=== PATIENT | male | born 1940 | race Caucasian/White ===

== ENCOUNTER 2020-01-07 21:49 | Inpatient (IN) | payer MEDICARE, BC, SELFPAY ==
--- NOTE | ~2020-01-07 | XR_ITS ---
EXAMINATION: XR fl guide central line place DATE: 01/11/2020 10:04 INDICATION: Central line placement. TECHNIQUE: 2 intraoperative fluoroscopic views of the chest were obtained. I was not present. Fluoros copy exposure time was 65 seconds. COMPARISON: Chest 2 views 01/07/2020 FINDINGS: There is a right internal jugular central venous catheter with tip overlying superior cavoa trial junction. IMPRESSION: 1. Central line tip overlying superior cavoatrial junction. Reviewed, dictated and finalized at location A.
--- NOTE | ~2020-01-07 | XR_ITS ---
EXAMINATION: XR chest port-a-cath/central DATE: 01/11/2020 10:24 INDICATION: Central line placement. TECHNIQUE: A single frontal view of the chest was obtained. COMPARISON: Chest 2 views 01/07/2020 FINDINGS: The patient is rotated to his right. There is mild scarring at the lung apices. No pleural effusion or pneumothorax. The heart size is normal. A right internal jugular central venous catheter is seen with tip at the superior cavoatrial junction. Calcified mediastinal lymph nodes are consisten t with old granulomatous disease. IMPRESSION: 1. Central line tip at superior cavoatrial junction. Reviewed, dictated and finalized at location A.
--- NOTE | ~2020-01-07 | XR_ITS ---
XR chest 2V 01/07/2020 22:37 Indication: Left-sided chest pain Procedure: 2 view chest Comparison: Comparison to multiple prior studies sequentially, with oldest reviewed study dated 08/01. Findings: Heart size normal. There is chronic apical pleural thickening/scarring. No focal air space disease, pulmonary edema, pleural effusion or suspected pneumothorax. The lungs are hyperinflated whi ch is consistent with, but not diagnostic of chronic obstructive pulmonary disease. Impression: 1: No acute cardiopulmonary disease. Reviewed, dictated and finalized at location A. Impression: 1: No acute cardiopulmonary disease.
[2020-01-07 21:55] VITALS: BP 151/72; PULSE 91; RESP 20; TEMP 37.1; O2SAT 100
[2020-01-07 22:16] VITALS: PULSE 85
--- NOTE | 2020-01-07 22:20 | ECG_ITS ---
Measurements Intervals [place] Rate: 86 P: 35 MN: 112 QRS: -44 QRSD: 86 T: 62 QT: 343 QTc: 412 Interpretive Statements SINUS RHYTHM WITH SHORT MN INTERVAL VENTRICULAR PREMATURE COMPLEX LEFT AXIS DEVIATION MINIMAL Q WAVES- LATERAL LEADS BASELINE ARTIFACT- V6 BORDERLINE ECG Electronically Signed On 01-08-2020 7:12:01 CDT by Jose Ramon Lao D.O.
--- NOTE | 2020-01-07 22:22 | ED.CHESTPAIN ---
HPI - Chest Pain General Chief Complaint: Chest Pain Stated Complaint: chest pain, chest congestion Time Seen by Provider: 01/07/20 22:05 History of Present Illness HPI narrative: Patient is a 79-year-old male who presents ER with chief complaint of chest pain. Ongoing for last couple of days and has been intermittent in nature. Worse in the evenings. Is associate with lower extremity edema that is worsened over the last week. He was prescribed Lasix a few days ago by his privacy officer to help with diuresis. He has CKD stage IV. No history of coronary disease. No overt orthopnea. Mild dyspnea. Has history of multiple myeloma and sees Dr. Nicolas. Last chemotherapy 2 weeks ago. Related Data Home Medications Medication Instructions Recorded Confirmed daratumumab [Darzalex] 20 mg IV MONTHLY 01/07/20 01/08/20 lisinopril 2.5 mg PO DAILY 01/07/20 01/08/20 pomalidomide [Pomalyst] 4 mg PO DAILY 01/07/20 01/08/20 tamsulosin 0.4 mg PO DAILY 01/07/20 01/08/20 valacyclovir 500 mg PO DAILY 01/07/20 01/08/20 dexamethasone 4 mg PO DAILY 01/08/20 01/08/20 diphenoxylate-atropine 1 tablet PO TID PRN 01/08/20 01/08/20 lorazepam 1 mg PO TID PRN 01/08/20 01/08/20 polyethylene glycol 3350 17 g PO DAILY PRN 01/08/20 01/08/20 Allergies Allergy/AdvReac Type Severity Reaction Status Date / Time codeine AdvReac Confusion Verified 01/07/20 22:04 Review of Systems Review of Systems: All systems reviewed & are unremarkable except as noted in HPI and below Constitutional: Constitutional: Denies chills, Denies fever(s) and Reports weakness ENT: Denies nasal congestion and Denies sore throat Cardiovascular: Cardiovascular: Reports chest pain and Denies radiating jaw, neck or arm pain Comments: Lower extremity edema Respiratory: Respiratory: Denies cough, Reports dyspnea and Denies wheezing Gastrointestinal: Gastrointestinal: Denies abdominal pain, Denies nausea and Denies vomiting PMFSH Past Medical History Medical History CKD (chronic kidney disease), stage IV Multiple myeloma Surgical History Surgical History H/O shoulder replacement Family History Family History Mother Diabetes mellitus Father Lung cancer Social History Social History Smoking status: Never smoker Second hand tobacco smoke exposure: No Alcohol intake: never Substance use: never Substance use type: does not use Gender identity (if verbalized by the patient): Male Spiritual care concerns: No Agree to blood products: Yes Exam Narrative: Exam Narrative: GENERAL: Well-appearing, well-nourished, and in no acute distress. HEAD: Normocephalic, atraumatic. ENT: Mucous membranes moist. CHEST: Clear to auscultation. No respiratory distress. HEART: Regular rate and rhythm. Normal peripheral pulses. ABDOMEN: Soft, nontender, nondistended. EXTREMITIES: Normal range of motion. 3+ edema. SKIN: Warm, dry, no rash. NEURO: Alert and oriented x3. PSYCH: Normal mood and affect. Course Course Emergency Course: Patient informed of results. Cardiology consulted. No heparin at this time per their recommendation. Will trend troponins. Will have patient's privacy officer consulted a later point. Vital Signs Vital signs: Vital Signs Temperature 98.8 F 01/07/20 21:55 Pulse Rate 91 01/07/20 21:55 Respiratory Rate 20 01/07/20 21:55 Blood Pressure 151/72 H 01/07/20 21:55 Pulse Oximetry 100 01/07/20 21:55 Temperature 98 F 01/08/20 04:00 Pulse Rate 58 L 01/08/20 06:00 Respiratory Rate 18 01/08/20 04:00 Blood Pressure 136/52 L 01/08/20 04:00 Pulse Oximetry 98 01/08/20 04:00 MDM - Chest Pain Lab Data Result diagrams: 01/07/20 22:24 01/07/20 22:24 Labs: Lab Results 01/07/2001/06
[2020-01-07 22:32] LABS: Basophils Percent Auto 1.3 % (0.2-1.2); Eosinophils Absolute Auto 0.6 K/mm3 (0-0.3); Hematocrit 28.8 % (42.0-52.0); Hemoglobin 9.2 g/dL (14.0-18.0); Immature Granulocyte Absolute 0.03 K/mm3 (0.00-0.031); Immature Granulocyte Percent A 1.3 % (0-0.5); Lymphocytes Absolute Auto 0.71 K/mm3 (0.9-3.2); Lymphocytes Percent Auto 30.7 % (18.3-44.2); Mean Corpuscular HGB Conc 31.9 g/dl (32-36); Mean Corpuscular Hemoglobin 31.8 pg (26-34); Mean Corpuscular Volume 99.7 fl (80-100); Mean Platelet Volume 12.2 fl (7.4-10.4); Monocytes Absolute Auto 0.2 K/mm3 (0.1-0.6); Neutrophils Absolute Auto 0.7 K/mm3 (1.3-6.7); Neutrophils Percent Auto 30.7 % (45.5-73.1); Platelet Count Result 177 k/mm3 (150-375); Red Blood Count 2.89 M/mm3 (4.6-6.20); Red Cell Distribution Width 14.7 % (11.5-14.5); White Blood Count 2.3 K/mm3 (4.5-10.0)
[2020-01-07 22:44] LABS: Alanine Aminotransferase 8 U/L (4-50); Albumin Level 3.2 g/dL (3.5-5.1); Alkaline Phosphatase 48 U/L (38-126); Aspartate Amino Transferase 11 U/L (17-59); Bilirubin,Total 0.3 mg/dL (0.2-1.3); Blood Urea Nitrogen 73 mg/dL (9-20); Calcium 8.2 mg/dL (8.4-10.2); Carbon Dioxide 16 mmol/L (22-30); Chloride 109 mmol/L (98-107); Estimated CRCL calculation 8 ml/min; Estimated Glomerular Filt Rate 7; Glucose 119 mg/dL (75-110); Potassium 5.1 mmol/L (3.4-5.0); Sodium 135 mmol/L (137-145)
[2020-01-07 23:20] LABS: NT Pro B Type Natriuretic Pept 5450 PG/ML (5-100); Troponin I 0.103 ng/mL (0.000-0.034)
[2020-01-08] VITALS (16 sets, daily range): BP systolic 129–163; BP diastolic 44–73; PULSE 53–88; RESP 16–21; TEMP 36–37; O2SAT 90–100; BMI 22.9
--- NOTE | 2020-01-08 | ECHO_ITS ---
Patient Info Name: Jackson Boyer Age: 79 years : 1940 Gender: Male Ht: 72 in Wt: 169 lbs BSA: 1.97 m2 HR: 78 bpm BP: 163 / 69 mmHg Technical Quality: Good Exam Date: 01/08/2020 10:51 AM Exam Location: [facility] Pulmonary Patient Status: Inpatient Admit Date: 01/08/2020 Staff Ordering Physician: Germain Avalos MD Social Worker Health Services: Felicitas Braun RDCS Attending Provider: Demetrius Neil MD Referring Physician: Bailey MCGREGOR; Exam Type: CA echo doppler color flow Study Info Indications - chest pain elevated troponins Complete two-dimensional, color flow and Doppler transthoracic echocardiogram is performed. Summary 1. Left ventricular chamber dimension is normal. 2. Left ventricular systolic function is normal, estimated at 65-70%. 3. Left atrial chamber dimension is mildly enlarged. 4. Small round mobile echo density noted in the right atrium likely represent prominent malika terminalis. 5. The aortic valve is trileaflet. 6. The mitral valve has normal leaflets. 7. No pulmonary hypertension, estimated pulmonary arterial systolic pressure is 37 mmHg. Left Ventricle Left ventricular chamber dimension is normal. Left ventricular systolic function is normal, estimated at 65-70%. There is mildly increased left ventricular wall thickness. Left ventricular septal wall motion is normal. The left ventricular diastolic function is normal. Right Ventricle Right ventricular chamber dimension is normal. Right ventricular systolic function is normal. Left Atria Left atrial chamber dimension is mildly enlarged. Right Atria Right atrial chamber dimension is normal. Small round mobile echo density noted in the right atrium likely represent prominent malika terminalis. Aortic Valve The aortic valve is trileaflet. There is no aortic valve sclerosis. There is no aortic valve stenosis. There is trace aortic valve regurgitation. Pulmonic Valve The pulmonic valve is normal. There is no pulmonic valve stenosis. There is no pulmonic regurgitation. Mitral Valve The mitral valve has normal leaflets. There is no mitral valve stenosis. There is no mitral valve regurgitation. Tricuspid Valve The tricuspid valve leaflets are normal. There is no significant tricuspid valve stenosis. There is no tricuspid valve regurgitation. No pulmonary hypertension, estimated pulmonary arterial systolic pressure is 37 mmHg. Pericardium/Pleural The pericardium appears normal. There is no pericardial effusion. Inferior Vena Cava Normal inferior vena cava with >50% collapse upon inspiration consistent with normal right atrial pressure. Aorta The aortic root size at the sinus of Valsalva is normal. The prox ascending aorta size is normal. Left Ventricular Outflow Tract Name Value Normal LVOT 2D LVOT Diameter 2.0 cm Pulmonic Valve Name Value Normal PV Doppler PV Peak Gradient 6 mmHg
[2020-01-08 01:48] LABS: Add Urine Microscopic? YES; Appearance Urine Clear (Clear); Bilirubin Urine Negative (Negative); Blood Urine 1+ (Negative); Color Urine Colorless (Yellow); Glucose Urine UA Negative (Negative); Ketones Urine Negative (Negative); Leukocyte Esterase Ur Negative LEU/UL (Negative); Mucus Urine Rare /lpf; Nitrate Urine Negative (Negative); Protein Urine Negative (Negative); RBC Urine 0-2 /hpf (0-2); Urobilinogen Urine Negative mg/dL (<2.0); WBC Urine 0-3 /hpf
[2020-01-08 02:29] LABS: Troponin I 0.156 ng/mL (0.000-0.034)
--- NOTE | 2020-01-08 02:41 | ADMGEN ---
This patient, Jackson Boyer, was admitted to IMU Room 203-01. Patient/family oriented to hospital policies and general routines including ID bracelet, bed and alarms, visiting hours, pain management, procedures, bathroom and other care routines, personal items, smoking policy, room service/diet, and visiting hours. Valuables list has been completed. Information on how to activate the Rapid Response Team has been discussed. Patient/Family are encouraged to report perceived risks to care and to ask questions if they do not understand what they are told or what they should do.
--- NOTE | 2020-01-08 02:42 | ECG_ITS ---
Measurements Intervals [place] Rate: 74 P: 51 DE: 130 QRS: -32 QRSD: 86 T: 49 QT: 384 QTc: 426 Interpretive Statements SINUS RHYTHM VENTRICULAR PREMATURE COMPLEX LEFT AXIS DEVIATION MINIMAL Q WAVES- LATERAL LEADS BASELINE ARTIFACT- I, II, AVR, V4-V5 BORDERLINE ECG Electronically Signed On 01-08-2020 7:12:50 CDT by Jose Ramon Lao D.O.
[2020-01-08] MEDS: ASPIRIN 325 MG ENTERIC TABLET PO (03:08)
--- NOTE | 2020-01-08 03:10 | PM.IMHP ---
H&P: HPI History of Present Illness Chief complaint: chest pain, ckd/heart failure/multiple myeloma Narrative: This is a 79 year old male with known multiple myeloma and CKD stage IV who presented to the hospital with 3 days of worsening left sided chest pain. Associated symptoms included shortness of breath. His chest pain has been intermittent and mostly occurs at nighttime. The patient denies any history of CAD+ or previous myocardial infarctions. He denies any palpitations, shortness of breath, or coughing. His last stress test was years ago. No nausea, diaphoresis, or fevers. He does report having worsening exertional shortness of breath over the past month as well as worsening lower extremity swelling. The patient tonight had a mildly elevated troponin in the ER and on my encounter with him he denies any further chest pain. The patient has not had any further chest pain tonight. Review of Systems Review of Systems: All systems reviewed & are unremarkable except as noted in HPI and below PMFSH Past Medical History Medical History CKD (chronic kidney disease), stage IV Multiple myeloma Surgical History Surgical History H/O shoulder replacement Family History Family History Mother Diabetes mellitus Father Lung cancer Social History Social History Smoking status: Never smoker Second hand tobacco smoke exposure: No Alcohol intake: never Substance use: never Substance use type: does not use Gender identity (if verbalized by the patient): Male Spiritual care concerns: No Agree to blood products: Yes Meds Home Medications and Allergies Home Medications Medication Instructions Recorded Confirmed Type daratumumab [Darzalex] 20 mg IV MONTHLY 01/07/20 01/08/20 History lisinopril 2.5 mg PO DAILY 01/07/20 01/08/20 History pomalidomide [Pomalyst] 4 mg PO DAILY 01/07/20 01/08/20 History tamsulosin 0.4 mg PO DAILY 01/07/20 01/08/20 History valacyclovir 500 mg PO DAILY 01/07/20 01/08/20 History dexamethasone 4 mg PO DAILY 01/08/20 01/08/20 History diphenoxylate-atropine 1 tablet PO TID PRN 01/08/20 01/08/20 History lorazepam 1 mg PO TID PRN 01/08/20 01/08/20 History polyethylene glycol 3350 17 g PO DAILY PRN 01/08/20 01/08/20 History Allergies Allergy/AdvReac Type Severity Reaction Status Date / Time codeine AdvReac Confusion Verified 01/07/20 22:04 Vital Signs Vital Signs - 24 hr 01/07/20 21:55 01/07/20 22:16 01/08/20 00:28 Temperature 37.1 C 37.0 C Pulse Rate 91 85 78 Respiratory Rate 20 21 H Blood Pressure 151/72 H 143/61 H Pulse Oximetry 100 98 01/08/20 02:17 Temperature 36.4 C Pulse Rate 79 Respiratory Rate 20 Blood Pressure 146/73 H Pulse Oximetry 100 Exam Const: General: cooperative, no acute distress, alert and awake Nutritional Appearance: well nourished Orientation/consciousness: patient oriented x3 HENMT: Head: normal to inspection General nose exam: Normal external nose present Face and sinus: normal facial exam Mouth: Yes Normal oral and palatal mucosa present and Yes oropharynx normal Eyes: Pupils: Equal, round and reactive pupils present EOM: EOMs intact bilaterally Neck: Neck: supple and no JVD Thyroid: thyroid normal Lymphatic: lymphadenopathy not noted Resp: Effort & Inspection: normal respiratory effort Auscultation: clear to auscultation bilaterally Cardio: Rate: regular rate Rhythm: regular rhythm Heart sounds: no murmurs GI: Inspection: normal to inspection Auscultation: normal bowel sounds Skin: General skin exam: normal color and no rashes or lesions noted Neuro: General: patient oriented x3 Cranial nerves: Yes CN's II-XII intact bilaterally and Yes Equal, round and reactive pupils present Speech: normal speech Mot
--- NOTE | 2020-01-08 09:54 | PM.CNCAR ---
Assessment and Plan Assessment and plan (1) CKD (chronic kidney disease), stage IV: Code(s): N18.4 - Chronic kidney disease, stage 4 (severe) Status: Acute Assessment and Plan: Cr is deteriorating (initially 6.6 -> 7.4. pt would benefit from nephrology consult. (2) Hyperkalemia: Code(s): E87.5 - Hyperkalemia Status: Acute (3) Acute on chronic renal failure: Qualifiers: Acute renal failure type: unspecified Chronic kidney disease stage: stage 4 (severe) Qualified Code(s): N17.9 - Acute kidney failure, unspecified; N18.4 - Chronic kidney disease, stage 4 (severe) Code(s): N17.9 - Acute kidney failure, unspecified; N18.9 - Chronic kidney disease, unspecified Status: Acute Assessment and Plan: probably due to deteriorating kidney function his BP is borderline if remains persistently elevated consider adding hydralazine (4) Elevated troponin: Code(s): R79.89 - Other specified abnormal findings of blood chemistry Status: Acute Assessment and Plan: pt with mild troponin elevation in setting of deteriorating kidney function and anemia would cont ASA and add statin given underlying medical problems monitor on telemetry (5) Chest discomfort: Code(s): R07.89 - Other chest pain Status: Acute Assessment and Plan: resolved appears atypical no acute EKG changes will arrange for ECHO to evaluate LV function and r/o structural heart disease Thank you for consult. Boni mcdowell. History of Present Illness History of Present Illness Consult date/time: 01/08/20 09:54 Mr. Boyer is a pleasant 79 y/o WM with PMH of multiple myeloma on chemotherapy, CRI who presented to [facility] last night. Pt states that he had episodes of chest discomfort at nigh while going to bed. Not related to physical activity. His symptoms resolved when he came to hospital. Denies any CP, SOB or palpitations at this point. Pt does not have hx of CAD, PCI or CABG. he had stress test before which was negative Pt does have multiple myeloma for 5-6 yrs which is followed by hematology (Dr. Nicolas). He is on chemotherapy. Pt does have CRI which is being followed by nephrology. States that his Cr month ago was about 5. Pt was seen and examined, chart was reviewed, case was d/w pt's nurse. Reason For Visit: chest pain, ckd/heart failure/multiple myeloma Review of Systems Review of Systems: All systems reviewed & are unremarkable except as noted in HPI and below Constitutional: Constitutional: Reports as per HPI Eyes: Eyes: Reports as per HPI ENT: Reports system reviewed and no additional complaints, except as documented and Reports as per HPI Cardiovascular: Cardiovascular: Reports as per HPI Respiratory: Respiratory: Reports as per HPI Gastrointestinal: Gastrointestinal: Reports as per HPI Genitourinary: Genitourinary: Reports as per HPI Musculoskeletal: Musculoskeletal: Reports as per HPI [facility] Past Medical History Medical History CKD (chronic kidney disease), stage IV Multiple myeloma Surgical History Surgical History H/O shoulder replacement Family History Family History Mother Diabetes mellitus Father Lung cancer Social History Social History Smoking status: Never smoker Second hand tobacco smoke exposure: No Alcohol intake: never Substance use: never Substance use type: does not use Gender identity (if verbalized by the patient): Male Spiritual care concerns: No Agree to blood products: Yes Meds Home Medications and Allergies Home Medications Medication Instructions Recorded Confirmed Type daratumumab [Darzalex] 20 mg IV MONTHLY 01/07/20 01/08/20 History lisinopril 2.5 mg PO DAILY 01/07/20 0
--- NOTE | 2020-01-08 09:56 | PM.IMPN ---
Progress Note: A&P Assessment and Plan (1) Chest pain: Qualifiers: Chest pain type: unspecified Qualified Code(s): R07.9 - Chest pain, unspecified Code(s): R07.9 - Chest pain, unspecified Status: Acute Assessment and Plan: Cardiology consulted and appreciate input. Serial troponin levels elevated as noted below. Telemetry reviewed on 01/08/2020 with sinus rhythm. Echocardiogram completed but results pending. Will keep today to monitor while awaiting echocardiogram results as could affect treatment. Telemetry reviewed on 01/08/2020 with sinus rhythm. Possible discharge later today if stable. (2) Elevated troponin: Code(s): R79.89 - Other specified abnormal findings of blood chemistry Status: Acute Assessment and Plan: Most likely result of worsening renal function but appreciate cardiology input as noted above. Troponin did peak at 0.460. Awaiting echocardiogram results. Telemetry as noted above. No additional cardiac evaluation planned at this time. (3) Acute on chronic renal failure: Qualifiers: Acute renal failure type: unspecified Chronic kidney disease stage: stage 4 (severe) Qualified Code(s): N17.9 - Acute kidney failure, unspecified; N18.4 - Chronic kidney disease, stage 4 (severe) Code(s): N17.9 - Acute kidney failure, unspecified; N18.9 - Chronic kidney disease, unspecified Status: Acute Assessment and Plan: Nephrology consulted and appreciate input. Discussed with Dr. Quinonez today. Most likely this is actually progression of disease with creatinine up to 7.40 on 01/07/2020. Nephrology has discussed dialysis with patient. Patient wishes to have peritoneal dialysis but will need to have arrangements made as an outpatient. No plan for inpatient hemodialysis at this time. Recheck renal function in am. Hepatitis studies ordered as will need for initiation of dialysis. (4) Hyperkalemia: Code(s): E87.5 - Hyperkalemia Status: Acute Assessment and Plan: Result of renal failure. Potassium 5.1 on admission. Will continue to monitor. (5) Chronic heart failure: Qualifiers: Heart failure type: unspecified Qualified Code(s): I50.9 - Heart failure, unspecified Code(s): I50.9 - Heart failure, unspecified Status: Chronic Assessment and Plan: Cardiology following as noted above. Echocardiogram results pending. Does not appear to have exacerbation at this time. Will continue monitor clinically. (6) Normocytic anemia: Code(s): D64.9 - Anemia, unspecified Status: Chronic Assessment and Plan: No signs of acute blood loss. Most likely result of chronic kidney disease. Hemoglobin 9.2 on admission. Will follow periodically. (7) DVT prophylaxis: Code(s): Z29.9 - Encounter for prophylactic measures, unspecified Status: Acute Assessment and Plan: SCDs. Time Spent With Patient Time with patient: 15 - 25 minutes Subjective Date/time seen: 01/08/20 09:56 Interval history: Date of Service: 01/08/2020. Admitted with chest pain and acute on chronic renal failure. Feels better today. No chest pain or chest pressure. Shortness of breath. No abdominal pain. No nausea or vomiting. No headache or dizziness. Review of Systems Review of Systems: Narrative: Feeling better. Constitutional: Constitutional: Denies chills and Denies fever(s) ENT: Denies nasal congestion and Denies nasal discharge Cardiovascular: Cardiovascular: Denies chest pain Respiratory: Respiratory: Denies dyspnea Gastrointestinal: Gastrointestinal: Denies abdominal pain, Denies nausea and Denies vomiting Genitourinary: Genitourinary: Reports no additional male genitourinary complaints Musculoskeletal: Musculoskeletal: Reports no additional musculoskeletal complaints Integumentary/Breasts: Skin/Breast: Denies rash Neurologic: Denies headache(s) Psychiatric: Psychiatri
[2020-01-08] MEDS: VALACYCLOVIR HCL 500 MG TABLET PO (10:08)
[2020-01-08] MEDS: ASPIRIN 81 MG ENTERIC TABLET PO (10:08)
[2020-01-08] MEDS: TAMSULOSIN HCL 0.4 MG CAPSULE PO (10:08)
[2020-01-08] MEDS: DEXAMETHASONE 4 MG TABLET PO (10:08)
[2020-01-08] MEDS: lisinopriL 2.5 MG TABLET PO (10:08)
--- NOTE | 2020-01-08 10:57 | PM.CNNEP ---
Assessment and Plan Assessment and plan (1) CKD (chronic kidney disease), stage IV: Code(s): N18.4 - Chronic kidney disease, stage 4 (severe) Status: Acute Assessment and Plan: Jackson has chronic kidney disease. His creatinine has slowly worsened. He does not have any symptoms of kidney disease. He wants to do peritoneal dialysis. This hospital has no capability of placing catheters. I think it would be in his best interest to go ahead and get a catheter placed sometime soon. But I do not think it needs to be during this hospitalization. Long conversation with the patient. Does not want to start dialysis yet either. (2) Chest discomfort: Code(s): R07.89 - Other chest pain Status: Acute Assessment and Plan: The patient has exertional chest pain. Cardiology is evaluating this. (3) CHF (congestive heart failure): Code(s): I50.9 - Heart failure, unspecified Status: Acute Assessment and Plan: The patient has this in his history however his heart looks okay on chest x-ray any does not have any fluid overload. He does have a little bit of swelling which may be more renal related then the heart. (4) Hyperkalemia: Code(s): E87.5 - Hyperkalemia Status: Acute Assessment and Plan: His potassium was a little high on admission. We will stop the lisinopril. The potassium is better this morning The patient will get education about low-potassium diet. (5) Normocytic anemia: Code(s): D64.9 - Anemia, unspecified Status: Chronic Assessment and Plan: Hemoglobin is a bit low. This is probably from his kidney disease. However he also has multiple myeloma is getting therapy for this so this is probably playing a role as well. 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 History of Present Illness Reason for Consult Consult date: 01/08/20 Chief Complaint Chief complaint: chest pain, ckd/heart failure/multiple myeloma History of Present Illness Narrative: Jackson is a very pleasant gentleman who is a patient of Dr. Moya. He sees him for chronic kidney disease. He has multiple myeloma and is getting active treatment for this. Dr. Moeller has been following him in the office and has been hoping that his kidney function would improve with the treatment however things seem to have plateaued. His last visit in September showed a creatinine of 5.5. Mr. alonso has gone to education and has decided that he wants to do peritoneal dialysis when the time comes. Currently has no nausea. His appetite is good and he is eating well. He has this some swelling but not bad. He has no shortness of breath. The patient came into the hospital because he has had about 3 days of chest pain. This is described as a pressure type of pain which is in the center of his chest and does not radiate. It comes with exertion like when he walks up the steps. Because of this symptom he was admitted to the hospital. Cardiology is evaluating him. Past history:, chronic kidney disease, anemia Review of Systems Constitutional: Constitutional: Reports no additional constitutional complaints Eyes: Eyes: Reports no additional eye complaints ENT: Reports system reviewed and no additional complaints, except as documented Cardiovascular: Cardiovascular: Reports no additional cardiovascular complaints Respiratory: Respiratory: Reports no additional respiratory complaints Gastrointestinal: Gastrointestinal: Reports no additional gastrointestinal complaints Genitourinary: Genitourinary: Reports no additional male genitourinary complaints Musculoskeletal: Musculoskeletal: Reports no additional musculoskeletal complaints Integumentary/Breasts: Skin/Breast: Reports system reviewed and no additional complaints, except as docu Neurologic: Reports system reviewed and no additional complaints, except as documented Psychiatric: Psychia
[2020-01-08 11:28] LABS: Iron 47 ug/dL (49-181)
[2020-01-08 11:38] LABS: Percent Iron Saturation 20 % (20-50)
[2020-01-08 12:37] LABS: Folic Acid 10.5 ng/mL (2.76->20)
[2020-01-08 12:48] LABS: Cholesterol 114 mg/dL (0-200); HDL Direct 40 mg/dL; Triglycerides 85 mg/dL (<150)
[2020-01-08 12:58] LABS: LDL Cholesterol Direct 62 mg/dL
[2020-01-08 17:07] LABS: Hepatitis B Surface Antigen Negative (Negative)
[2020-01-08 17:13] LABS: HAV RESULT Negative (Negative); Hepatitis B Core IgM Result Negative (Negative)
[2020-01-08 17:24] LABS: Hepatitis C Virus Antibody Negative (Negative)
[2020-01-08] MEDS: ROSUVASTATIN 5 MG TABLET PO (20:30)
[2020-01-09] VITALS (14 sets, daily range): BP systolic 146–160; BP diastolic 65–74; PULSE 51–87; RESP 14–18; TEMP 36.1–36.9; O2SAT 99–100
[2020-01-09 00:06] LABS: Glucose Point of Care 137 (65-105)
[2020-01-09 04:41] LABS: Hematocrit 29.3 % (42.0-52.0); Hemoglobin 9.4 g/dL (14.0-18.0); Mean Corpuscular HGB Conc 32.1 g/dl (32-36); Mean Corpuscular Hemoglobin 31.6 pg (26-34); Mean Corpuscular Volume 98.7 fl (80-100); Mean Platelet Volume 11.8 fl (7.4-10.4); Platelet Count Result 182 k/mm3 (150-375); Red Blood Count 2.97 M/mm3 (4.6-6.20); Red Cell Distribution Width 14.4 % (11.5-14.5)
[2020-01-09 04:51] LABS: White Blood Count 1.7 K/mm3 (4.5-10.0)
[2020-01-09 04:57] LABS: Alanine Aminotransferase 8 U/L (4-50); Albumin Level 3.1 g/dL (3.5-5.1); Alkaline Phosphatase 49 U/L (38-126); Aspartate Amino Transferase 11 U/L (17-59); Bilirubin,Total 0.2 mg/dL (0.2-1.3); Blood Urea Nitrogen 72 mg/dL (9-20); Calcium 7.8 mg/dL (8.4-10.2); Carbon Dioxide 14 mmol/L (22-30); Chloride 113 mmol/L (98-107); Cholesterol 118 mg/dL (0-200); Estimated CRCL calculation 9 ml/min; Estimated Glomerular Filt Rate 7; Glucose 123 mg/dL (75-110); HDL Direct 39 mg/dL; Phosphorus 4.8 mg/dL (2.5-4.5); Potassium 5.5 mmol/L (3.4-5.0); Sodium 137 mmol/L (137-145); Triglycerides 71 mg/dL (<150)
[2020-01-09 05:08] LABS: LDL Cholesterol Direct 66 mg/dL
[2020-01-09 05:18] LABS: Troponin I 0.174 ng/mL (0.000-0.034)
[2020-01-09] MEDS: NITROGLYCERIN SL 0.4 MG TABLET SUBLINGUAL ×2 (07:56→08:01)
[2020-01-09] MEDS: VALACYCLOVIR HCL 500 MG TABLET PO (07:57)
[2020-01-09] MEDS: DEXAMETHASONE 4 MG TABLET PO (07:57)
[2020-01-09] MEDS: TAMSULOSIN HCL 0.4 MG CAPSULE PO (07:57)
[2020-01-09] MEDS: ASPIRIN 81 MG ENTERIC TABLET PO (07:57)
--- NOTE | 2020-01-09 08:10 | ECG_ITS ---
Measurements Intervals [place] Rate: 75 P: 49 CO: 146 QRS: -38 QRSD: 93 T: 47 QT: 387 QTc: 435 Interpretive Statements SINUS RHYTHM LEFT AXIS DEVIATION MINIMAL Q WAVES- LATERAL LEADS BASELINE ARTIFACT- I, II, III, AVR, AVL, AVF, V1, V3 BORDERLINE ECG Electronically Signed On 01-09-2020 9:07:12 CDT by Jose Ramon Lao D.O.
[2020-01-09] MEDS: SODIUM POLYSTYRENE SULFONONATE 15 GM/60 ML BTL 30 GM PO (08:34)
--- NOTE | 2020-01-09 09:31 | PM.PNNEP ---
Progress Note: A&P Assessment and Plan (1) CKD (chronic kidney disease), stage IV: Code(s): N18.4 - Chronic kidney disease, stage 4 (severe) Status: Acute Assessment and Plan: Jackson has chronic kidney disease. His creatinine is about the same as it was before. No uremic symptoms. He will see Dr. Moeller in the office next week to arrange for PD catheter placement. (2) Chest discomfort: Code(s): R07.89 - Other chest pain Status: Acute Assessment and Plan: The patient has exertional chest pain. Today he had more which was relieved by nitro. Cardiology is evaluating this. (3) CHF (congestive heart failure): Code(s): I50.9 - Heart failure, unspecified Status: Acute Assessment and Plan: The patient has this in his history however his heart looks okay on chest x-ray any does not have any fluid overload. Swelling is stable. (4) Hyperkalemia: Code(s): E87.5 - Hyperkalemia Status: Acute Assessment and Plan: His potassium was a little high on admission and again yesterday. He was on lisinopril. This was stopped yesterday. I talked him about a low-potassium diet. He should avoid bananas, citrus fruits, tomatoes, potatoes, and avocados. (5) Normocytic anemia: Code(s): D64.9 - Anemia, unspecified Status: Chronic Assessment and Plan: Hemoglobin is a bit low. This is probably from his kidney disease. However he also has multiple myeloma is getting therapy for this so this is probably playing a role as well. 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 Will give a dose today.Will also give some iron. Subjective Date/time seen: 01/09/20 09:31 Interval history: Patient feels okay right now. Earlier he had substernal chest pain which was relieved by nitro. Review of Systems Cardiovascular: Cardiovascular: Reports no additional cardiovascular complaints Respiratory: Respiratory: Reports no additional respiratory complaints Gastrointestinal: Gastrointestinal: Reports no additional gastrointestinal complaints Genitourinary: Genitourinary: Reports no additional male genitourinary complaints Exam Narrative: Exam Narrative: Well developed well-nourished in no acute distress Lungs clear Heart regular without rub Abdomen bowel sounds positive soft nontender Extremities no edema Skin no rash Objective Data Vital Signs Vital Signs: Vital Signs - 24 hr 01/08/20 10:00 01/08/20 12:00 01/08/20 12:29 Temperature 36.1 C L Pulse Rate 88 57 L 62 Respiratory Rate 18 Blood Pressure 129/54 L Pulse Oximetry 100 01/08/20 14:00 01/08/20 16:00 01/08/20 18:00 Temperature 36.0 C L Pulse Rate 61 65 65 Respiratory Rate 16 Blood Pressure 140/63 Pulse Oximetry 98 01/08/20 20:00 01/08/20 22:00 01/08/20 23:59 Temperature 36.8 C 36.3 C L Pulse Rate 60 53 L 68 Respiratory Rate 16 16 Blood Pressure 142/52 H 159/44 H Pulse Oximetry 98 99 01/09/20 00:00 01/09/20 02:00 01/09/20 03:56 Temperature 36.2 C L Pulse Rate 69 54 L 67 Respiratory Rate 16 16 Blood Pressure 146/65 H Pulse Oximetry 99 100 01/09/20 04:00 01/09/20 05:29 01/09/20 08:00 Temperature 36.1 C L Pulse Rate 74 70 72 Respiratory Rate 16 18 Blood Pressure 156/67 H Pulse Oximetry 100 100 Intake/Output Intake/Output: Intake & Output 01/06/20 01/07/20 01/08/20 01/09/20 23:59 23:59 23:59 23:59 Intake Total 1360 50 Output Total 1850 1200 Balance -490 -1150 Meds/Results Medications: Active Medications Generic Name Dose Route Start Last Admin Trade Name Hyacinth PRN Reason Stop Dose Admin Acetaminophen 650 mg 01/08/20 00:04 Tylenol Tablet PO Q4H PRN Mild Pain (1-3) or Fever Hydrocodone Bitart/Acetaminophen 1 tab 01/08/20 00:04 01/09/20 05:01 [place] 5-325 Mg PO 1 tab Q4H PRN Administration Pain Rated 4-6 Aspirin 81 mg 01/08/20 09:
--- NOTE | 2020-01-09 09:41 | PM.IMPN ---
Progress Note: A&P Assessment and Plan (1) Chest pain: Qualifiers: Chest pain type: unspecified Qualified Code(s): R07.9 - Chest pain, unspecified Code(s): R07.9 - Chest pain, unspecified Status: Acute Assessment and Plan: Cardiology consulted and appreciate input. Serial troponin levels elevated as noted below. Telemetry reviewed on 01/09/2020 with sinus rhythm. Echocardiogram completed but results still pending. Had another episode this morning. Await further recommedations from cardiology. Will continue to monitor in the meantime. (2) Elevated troponin: Code(s): R79.89 - Other specified abnormal findings of blood chemistry Status: Acute Assessment and Plan: Most likely result of worsening renal function but appreciate cardiology input as noted above. Troponin did peak at 0.460 with level down to 0.174 today. Awaiting echocardiogram results. Telemetry as noted above above. (3) CKD (chronic kidney disease), stage IV: Code(s): N18.4 - Chronic kidney disease, stage 4 (severe) Status: Acute Assessment and Plan: Nephrology consulted and appreciate input. Discussed with Dr. Quinonez. Most likely this is actually progression of disease with creatinine up to 7.40 on 01/07/2020. Creatinine stable at 7.20 today. Nephrology has discussed dialysis with patient. Patient wishes to have peritoneal dialysis but will need to have arrangements made as an outpatient. No plan for inpatient hemodialysis at this time. Hepatitis studies ordered as will need for initiation of dialysis. Will follow renal function while here. (4) Hyperkalemia: Code(s): E87.5 - Hyperkalemia Status: Acute Assessment and Plan: Result of renal failure. Potassium 5.5 today. Discussed with nephrology. Lisinopril already discontinued. Kayexalate ordered per cardiology. Will continue to monitor. (5) Chronic heart failure: Qualifiers: Heart failure type: unspecified Qualified Code(s): I50.9 - Heart failure, unspecified Code(s): I50.9 - Heart failure, unspecified Status: Chronic Assessment and Plan: Cardiology following as noted above. Echocardiogram results pending. Does not appear to have exacerbation at this time. Will continue to monitor clinically. (6) Normocytic anemia: Code(s): D64.9 - Anemia, unspecified Status: Chronic Assessment and Plan: No signs of acute blood loss. Most likely result of chronic kidney disease. Hemoglobin 9.4 today. Continue to follow. (7) Multiple myeloma: Qualifiers: Multiple myeloma remission status: unspecified Qualified Code(s): C90.00 - Multiple myeloma not having achieved remission Code(s): C90.00 - Multiple myeloma not having achieved remission Status: Acute Assessment and Plan: WBC slightly lower at 1.7 today but does have known multiple myeloma. Appears stable. Will follow. (8) DVT prophylaxis: Code(s): Z29.9 - Encounter for prophylactic measures, unspecified Status: Acute Assessment and Plan: SCDs. Time Spent With Patient Time with patient: 15 - 25 minutes Subjective Date/time seen: 01/09/20 09:41 Interval history: Date of Service: 01/09/2020. Admitted with chest pain and acute on chronic renal failure. Has episode of left sided chest pain around 4 am today. Patient reports was felt like pressure. Relieved with NTG. No associated shortness of breath, nausea or diaphoresis. Feels better now. No headache. No abdominal pain. Review of Systems Constitutional: Constitutional: Denies chills and Denies fever(s) ENT: Denies nasal congestion and Denies nasal discharge Cardiovascular: Cardiovascular: Reports chest pain (episode earlier this am but now resolved) Respiratory: Respiratory: Denies cough and Denies dyspnea Gastrointestinal: Gastrointestinal: Denies abdominal pain, Denies nausea and Denies vomiting
[2020-01-09] MEDS: IRON SUCROSE COMPLEX 200 MG in SODIUM CHLORIDE 0.9% IV 50 ML 120 MG IVPB (11:25)
--- NOTE | 2020-01-09 11:46 | PM.PNCARD ---
Progress Note: A&P Assessment and Plan (1) CKD (chronic kidney disease), stage IV: Code(s): N18.4 - Chronic kidney disease, stage 4 (severe) Status: Acute Assessment and Plan: Cr is deteriorating (initially 6.6 -> 7.4. pt would benefit from nephrology consult. (2) Hyperkalemia: Code(s): E87.5 - Hyperkalemia Status: Acute (3) Acute on chronic renal failure: Qualifiers: Acute renal failure type: unspecified Chronic kidney disease stage: stage 4 (severe) Qualified Code(s): N17.9 - Acute kidney failure, unspecified; N18.4 - Chronic kidney disease, stage 4 (severe) Code(s): N17.9 - Acute kidney failure, unspecified; N18.9 - Chronic kidney disease, unspecified Status: Acute Assessment and Plan: probably due to deteriorating kidney function his BP is borderline if remains persistently elevated consider adding hydralazine (4) Elevated troponin: Code(s): R79.89 - Other specified abnormal findings of blood chemistry Status: Acute Assessment and Plan: pt with mild troponin elevation in setting of deteriorating kidney function and anemia would cont ASA and add statin given underlying medical problems monitor on telemetry (5) Chest discomfort: Code(s): R07.89 - Other chest pain Status: Acute Assessment and Plan: resolved appears atypical no acute EKG changes will arrange for ECHO to evaluate LV function and r/o structural heart disease Thank you for consult. Will fu. (6) Non-ST elevation myocardial infarction (NSTEMI): Code(s): I21.4 - Non-ST elevation (NSTEMI) myocardial infarction Status: Acute Assessment and Plan: With elevated troponin, and occasional episode of chest pain, he had 1 more episode of chest pain today, relieved with nitroglycerin, will continue close monitoring continue with aspirin and add Plavix, will follow up troponin to consider heparin if troponin gets more elevated, long-term he will need cardiac catheterization and possible treatment with intervention, we will talk with Nephrology about possible dialysis. If absolutely no dialysis is planned and will treated medically and avoid cardiac catheterization Subjective Date/time seen: 01/09/20 11:46 He had 1 episode of chest pain earlier today improved with nitroglycerin, currently is pain-free. Troponin showed slight elevation, his creatinine level is about the same according to Nephrology. Has mild shortness breath no palpitation no arrhythmia Exam Const: General: alert and awake; No acute distress HENMT: Head: normal to inspection and atraumatic Ears: hearing grossly normal bilaterally Face and sinus: normal facial exam Eyes: General: appearance normal, both eyes and all related structures Pupils: Equal, round and reactive pupils present EOM: EOMs intact bilaterally Neck: Neck: normal visual inspection and no JVD Chest: Chest palpation & inspection: normal inspection of the chest Resp: Effort & Inspection: normal respiratory effort and no respiratory distress Auscultation: clear to auscultation bilaterally Cardio: Jugular venous distension: no JVD Rate: regular rate Heart sounds: S1 normal heart sound present, S2 normal heart sound present and no murmurs GI: Inspection: normal to inspection Auscultation: normal bowel sounds Skin: General skin exam: normal color Neuro: Cranial nerves: Yes Equal, round and reactive pupils present Extrem: General: normal to inspection and no clubbing, cyanosis or edema Objective Data Vital Signs Vital Signs: Vital Signs - 24 hr 01/08/20 12:00 01/08/20 12:29 01/08/20 14:00 Temperature 36.1 C L Pulse Rate 57 L 62 61 Respiratory Rate 18 Blood Pressure 129/54 L Pulse Oximetry 100 01/08/20 16:00 01/08/20 18:00 01/08/20 20:00 Temperature 36.0 C L 36.8 C Pulse Rate 65 65 60 Respiratory Rate 16 16 Blood Pressure 140/63 142/52 H Pulse Oximetry 98 98 01/08/20 22:00 04
[2020-01-09 13:45] LABS: Basophils Percent Auto 0.5 % (0.2-1.2); Hematocrit 28.7 % (42.0-52.0); Hemoglobin 9.1 g/dL (14.0-18.0); Immature Granulocyte Absolute 0.02 K/mm3 (0.00-0.031); Immature Granulocyte Percent A 1.1 % (0-0.5); Lymphocytes Absolute Auto 0.35 K/mm3 (0.9-3.2); Lymphocytes Percent Auto 18.4 % (18.3-44.2); Mean Corpuscular HGB Conc 31.7 g/dl (32-36); Mean Corpuscular Hemoglobin 31.3 pg (26-34); Mean Corpuscular Volume 98.6 fl (80-100); Mean Platelet Volume 11.3 fl (7.4-10.4); Monocytes Absolute Auto 0.1 K/mm3 (0.1-0.6); Monocytes Percent Auto 6.8 % (2.6-8.5); Neutrophils Absolute Auto 1.4 K/mm3 (1.3-6.7); Neutrophils Percent Auto 73.2 % (45.5-73.1); Platelet Count Result 198 k/mm3 (150-375); Red Blood Count 2.91 M/mm3 (4.6-6.20); Red Cell Distribution Width 14.4 % (11.5-14.5)
[2020-01-09 13:49] LABS: White Blood Count 1.9 K/mm3 (4.5-10.0)
[2020-01-09 13:55] LABS: INR 1.2; Prothrombin Time 14.8 Seconds (11.1-14.7)
[2020-01-09 13:56] LABS: Partial Thromboplastin Time 28.5 SECONDS (22.3-36.8)
[2020-01-09] MEDS: HEPARIN SODIUM 5,000 UNITS/ML VIAL 4000 UNITS IV PUSH (14:01)
[2020-01-09] MEDS: HEPARIN SOD/D5W 100 UNITS/ML 25,000 UNITS/250 ML BAG 9.1 UNITS IV CONT (14:02)
[2020-01-09] MEDS: METOPROLOL TARTRATE 12.5 MG TABLET PO (20:00)
[2020-01-09] MEDS: ROSUVASTATIN 5 MG TABLET PO (20:01)
[2020-01-09 20:30] LABS: Partial Thromboplastin Time 138.8 SECONDS (22.3-36.8)
[2020-01-09] MEDS: HEPARIN SOD/D5W 100 UNITS/ML 25,000 UNITS/250 ML BAG 7 UNITS IV CONT (21:37)
[2020-01-10] VITALS (14 sets, daily range): BP systolic 133–164; BP diastolic 40–71; PULSE 42–75; RESP 12–20; TEMP 36.2–36.8; O2SAT 98–100
[2020-01-10 03:32] LABS: Basophils Percent Auto 0.5 % (0.2-1.2); Hematocrit 26.7 % (42.0-52.0); Hemoglobin 8.6 g/dL (14.0-18.0); Immature Granulocyte Absolute 0.02 K/mm3 (0.00-0.031); Lymphocytes Absolute Auto 0.47 K/mm3 (0.9-3.2); Lymphocytes Percent Auto 23.2 % (18.3-44.2); Mean Corpuscular HGB Conc 32.2 g/dl (32-36); Mean Corpuscular Volume 99.3 fl (80-100); Mean Platelet Volume 11.1 fl (7.4-10.4); Monocytes Absolute Auto 0.3 K/mm3 (0.1-0.6); Monocytes Percent Auto 13.3 % (2.6-8.5); Neutrophils Absolute Auto 1.3 K/mm3 (1.3-6.7); Platelet Count Result 188 k/mm3 (150-375); Red Blood Count 2.69 M/mm3 (4.6-6.20); Red Cell Distribution Width 14.4 % (11.5-14.5)
[2020-01-10 03:37] LABS: Partial Thromboplastin Time 76.2 SECONDS (22.3-36.8)
[2020-01-10 03:51] LABS: Albumin Level 2.9 g/dL (3.5-5.1); Blood Urea Nitrogen 76 mg/dL (9-20); Calcium 7.3 mg/dL (8.4-10.2); Carbon Dioxide 17 mmol/L (22-30); Chloride 112 mmol/L (98-107); Estimated CRCL calculation 9 ml/min; Estimated Glomerular Filt Rate 8; Glucose 106 mg/dL (75-110); Potassium 5.2 mmol/L (3.4-5.0); Sodium 137 mmol/L (137-145)
[2020-01-10] MEDS: CLOPIDOGREL BISULFATE 75 MG TABLET PO (08:32)
[2020-01-10] MEDS: DEXAMETHASONE 4 MG TABLET PO (08:32)
[2020-01-10] MEDS: METOPROLOL TARTRATE 12.5 MG TABLET PO ×2 (08:32→21:18)
[2020-01-10] MEDS: TAMSULOSIN HCL 0.4 MG CAPSULE PO (08:32)
[2020-01-10] MEDS: ASPIRIN 81 MG ENTERIC TABLET PO (08:32)
[2020-01-10] MEDS: VALACYCLOVIR HCL 500 MG TABLET PO (08:32)
--- NOTE | 2020-01-10 10:13 | PM.PNNEP ---
Progress Note: A&P Assessment and Plan (1) CKD (chronic kidney disease), stage IV: Code(s): N18.4 - Chronic kidney disease, stage 4 (severe) Status: Acute Assessment and Plan: Jackson has chronic kidney disease. His creatinine is about the same as it was before. No uremic symptoms. The patient is having continued chest pain and now has positive troponins. Therefore our hand is forced and has to do a cardiac catheterization. I discussed with the patient at length. Ideally if there were no cardiac issues we would just discharged the patient and have a peritoneal dialysis catheter placed as an outpatient and start dialysis over the next few weeks. However now he has to have a cardiac catheterization. So to try to preserve renal function we will place a tunneled dialysis catheter catheter tomorrow morning, then have his cardiac catheterization, and then do 1 round of dialysis to get rid of the contrast. Hopefully home make it through this without having to stay on dialysis. Then he can proceed with PD catheter as an outpatient. If the catheterization results in his stent and anticoagulants, then he may need to hold off on peritoneal dialysis for a while. Long discussion with the patient and also discussed with Dr. Guerra and . More than 25 minutes was spent in discussions apart from clinical activity (2) Chest discomfort: Code(s): R07.89 - Other chest pain Status: Acute Assessment and Plan: Long discussion with Dr. Guthrie yesterday. To get a cardiac catheterization tomorrow. (3) CHF (congestive heart failure): Code(s): I50.9 - Heart failure, unspecified Status: Acute Assessment and Plan: The patient has this in his history however his heart looks okay on chest x-ray any does not have any fluid overload. Swelling is stable. (4) Hyperkalemia: Code(s): E87.5 - Hyperkalemia Status: Acute Assessment and Plan: His potassium was a little high on admission and again yesterday. Potassium is 5.2 today. He is on a low-potassium bath. (5) Normocytic anemia: Code(s): D64.9 - Anemia, unspecified Status: Chronic Assessment and Plan: Hemoglobin is a bit low. This is probably from his kidney disease. However he also has multiple myeloma is getting therapy for this so this is probably playing a role as well. We will continue the Epogen. Subjective Date/time seen: 01/10/20 10:13 Interval history: Patient feels okay right now. His troponin went up to 5. So he was placed on heparin drip. No chest pain since then. Review of Systems Cardiovascular: Cardiovascular: Reports no additional cardiovascular complaints Respiratory: Respiratory: Reports no additional respiratory complaints Gastrointestinal: Gastrointestinal: Reports no additional gastrointestinal complaints Genitourinary: Genitourinary: Reports no additional male genitourinary complaints Exam Narrative: Exam Narrative: Well developed well-nourished in no acute distress Lungs clear Heart regular without rub Abdomen bowel sounds positive soft nontender Extremities no edema Skin no rash Objective Data Vital Signs Vital Signs: Vital Signs - 24 hr 01/09/20 12:00 01/09/20 14:00 01/09/20 15:59 Temperature 36.5 C Pulse Rate 84 72 70 Respiratory Rate 14 Blood Pressure 160/65 H Pulse Oximetry 100 01/09/20 16:00 01/09/20 17:57 01/09/20 19:49 Temperature 36.4 C 36.9 C Pulse Rate 66 70 74 Respiratory Rate 16 16 Blood Pressure 148/68 H 150/74 H Pulse Oximetry 100 99 01/09/20 20:00 01/09/20 22:00 01/10/20 00:00 Temperature 36.3 C L Pulse Rate 84 51 L 56 L Respiratory Rate 20 Blood Pressure 150/61 H Pulse Oximetry 99 01/10/20 02:00 01/10/20 04:00 01/10/20 05:51 Temperature 36.2 C L Pulse Rate 42 L 49 L 52 L Respiratory Rate 20 Blood Pressure 143/71 H Pulse Oximetry 99 01/10/20
[2020-01-10 10:35] LABS: Partial Thromboplastin Time 60.9 SECONDS (22.3-36.8)
--- NOTE | 2020-01-10 11:15 | PM.PNCARD ---
Progress Note: A&P Assessment and Plan (1) Non-ST elevation myocardial infarction (NSTEMI): Code(s): I21.4 - Non-ST elevation (NSTEMI) myocardial infarction Status: Acute Assessment and Plan: Trop up to 5. Continue Heparin dtip. On ASA and Plavix. EKG reviewed, no dynamic changes. No chest pain Will plan LHC/coronary angiogram tomorrow, sooner if develops more chest pain or EKG changes. Plan coordinated with nephrology. Patient to have dialysis catheter placed (2) CKD (chronic kidney disease), stage IV: Code(s): N18.4 - Chronic kidney disease, stage 4 (severe) Status: Acute Assessment and Plan: Nephrology on board. Plan to had HD session post cath then eventually continue with PD. . (3) Multiple myeloma: Qualifiers: Multiple myeloma remission status: unspecified Qualified Code(s): C90.00 - Multiple myeloma not having achieved remission Code(s): C90.00 - Multiple myeloma not having achieved remission Status: Acute Subjective Date/time seen: 01/10/20 11:15 Follow up trop is 5. He is on Heparin drip now. He denies chest pain and states he feels fine. He is agreeable with plan to start dialysis after discussion with nephrology Review of Systems Review of Systems: All systems reviewed & are unremarkable except as noted in HPI and below Constitutional: Constitutional: Reports as per HPI Eyes: Eyes: Reports as per HPI ENT: Reports system reviewed and no additional complaints, except as documented and Reports as per HPI Cardiovascular: Cardiovascular: Reports as per HPI Respiratory: Respiratory: Reports as per HPI Gastrointestinal: Gastrointestinal: Reports as per HPI Genitourinary: Genitourinary: Reports as per HPI Musculoskeletal: Musculoskeletal: Reports as per HPI Exam Const: General: alert and awake; No acute distress HENMT: Head: normal to inspection and atraumatic Ears: hearing grossly normal bilaterally Face and sinus: normal facial exam Eyes: General: appearance normal, both eyes and all related structures Pupils: Equal, round and reactive pupils present EOM: EOMs intact bilaterally Neck: Neck: normal visual inspection and no JVD Chest: Chest palpation & inspection: normal inspection of the chest Resp: Effort & Inspection: normal respiratory effort and no respiratory distress Auscultation: clear to auscultation bilaterally Cardio: Jugular venous distension: no JVD Rate: regular rate Heart sounds: S1 normal heart sound present, S2 normal heart sound present and no murmurs GI: Inspection: normal to inspection Auscultation: normal bowel sounds Skin: General skin exam: normal color Neuro: Cranial nerves: Yes Equal, round and reactive pupils present Extrem: General: normal to inspection and no clubbing, cyanosis or edema Objective Data Vital Signs Vital Signs: Vital Signs - 24 hr 01/09/20 12:00 01/09/20 14:00 01/09/20 15:59 Temperature 36.5 C Pulse Rate 84 72 70 Respiratory Rate 14 Blood Pressure 160/65 H Pulse Oximetry 100 01/09/20 16:00 01/09/20 17:57 01/09/20 19:49 Temperature 36.4 C 36.9 C Pulse Rate 66 70 74 Respiratory Rate 16 16 Blood Pressure 148/68 H 150/74 H Pulse Oximetry 100 99 01/09/20 20:00 01/09/20 22:00 01/10/20 00:00 Temperature 36.3 C L Pulse Rate 84 51 L 56 L Respiratory Rate 20 Blood Pressure 150/61 H Pulse Oximetry 99 01/10/20 02:00 01/10/20 04:00 01/10/20 05:51 Temperature 36.2 C L Pulse Rate 42 L 49 L 52 L Respiratory Rate 20 Blood Pressure 143/71 H Pulse Oximetry 99 01/10/20 08:00 01/10/20 08:32 01/10/20 10:00 Temperature 36.3 C L Pulse Rate 53 L 71 58 L Respiratory Rate 12 Blood Pressure 133/55 L Pulse Oximetry 100 Intake/Output Intake/Output: Intake & Output 01/07/20 01/08/20 01/09/20 01/10/20 23:59 23:59 23:59 23:59 Intake Total 1360 690 952 Output Total 1850 2100 500 Balance -215 -0320 502 Meds/
[2020-01-10 11:35] LABS: Hepatitis B Surface Antigen Negative (Negative)
[2020-01-10 11:37] LABS: Hepatitis B Surface Anti Res Negative
[2020-01-10] MEDS: IRON SUCROSE COMPLEX 200 MG in SODIUM CHLORIDE 0.9% IV 50 ML 120 MG IVPB (11:37)
[2020-01-10 11:39] LABS: Hepatitis C Virus Antibody Negative (Negative)
--- NOTE | 2020-01-10 11:45 | PM.IMPN ---
Progress Note: A&P Assessment and Plan (1) Chest pain: Qualifiers: Chest pain type: unspecified Qualified Code(s): R07.9 - Chest pain, unspecified Code(s): R07.9 - Chest pain, unspecified Status: Acute Assessment and Plan: Cardiology consulted and appreciate input. Serial troponin levels elevated as noted below. Had additional episode of chest pain on 01/09/2020. Discussed with Cardiology yesterday. Plan for cardiac catheterization tomorrow followed by hemodialysis. Telemetry reviewed on 01/10/2020 with sinus rhythm. Echocardiogram with EF 65-70%, small round mobile echodensity in the right atrium likely representing prominent malika terminalis and no pulmonary hypertension. Will continue to monitor. (2) Elevated troponin: Code(s): R79.89 - Other specified abnormal findings of blood chemistry Status: Acute Assessment and Plan: Troponin did peak at 0.460 with level down to 0.174 on 01/09/2020. Plan for cardiac catheterization tomorrow. (3) CKD (chronic kidney disease), stage IV: Code(s): N18.4 - Chronic kidney disease, stage 4 (severe) Status: Acute Assessment and Plan: Nephrology consulted and appreciate input. Discussed with Dr. Quinonez. Most likely this is actually progression of disease with creatinine 6.90 today. Plan for hemodialysis tomorrow after cardiac catheterization. General surgery consulted with plan for placement of dialysis catheter tomorrow morning before cardiac catheterization. No uremic symptoms. Still hoping for ability to do peritoneal dialysis as an outpatient. Will continue to monitor. (4) Hyperkalemia: Code(s): E87.5 - Hyperkalemia Status: Acute Assessment and Plan: Result of renal failure. Potassium stable at 5.2 today. Lisinopril discontinued. Received Kayexalate yesterday per cardiology. Will continue to monitor. (5) Chronic heart failure: Qualifiers: Heart failure type: unspecified Qualified Code(s): I50.9 - Heart failure, unspecified Code(s): I50.9 - Heart failure, unspecified Status: Chronic Assessment and Plan: Cardiology following as noted above. Echocardiogram results as noted above. Does not appear to have exacerbation at this time. Will continue to monitor clinically. (6) Normocytic anemia: Code(s): D64.9 - Anemia, unspecified Status: Chronic Assessment and Plan: No signs of acute blood loss. Most likely result of chronic kidney disease/multiple myeloma. Hemoglobin 8.6 today. Continue to follow. (7) Multiple myeloma: Qualifiers: Multiple myeloma remission status: unspecified Qualified Code(s): C90.00 - Multiple myeloma not having achieved remission Code(s): C90.00 - Multiple myeloma not having achieved remission Status: Acute Assessment and Plan: Stable. WBC currently 2.0, hemoglobin 8.6 and platelets 188,000. Will monitor. (8) DVT prophylaxis: Code(s): Z29.9 - Encounter for prophylactic measures, unspecified Status: Acute Assessment and Plan: SCDs. Time Spent With Patient Time with patient: 15 - 25 minutes Subjective Date/time seen: 01/10/20 11:45 Interval history: Date of Service: 01/10/2020. Admitted with chest pain and acute on chronic renal failure. had episode of chest pain early on 01/09/2020 but none since that time. No shortness of breath. No abdominal pain. No nausea or vomiting. No headache or dizziness. Review of Systems Constitutional: Constitutional: Denies chills and Denies fever(s) ENT: Denies nasal congestion and Denies nasal discharge Cardiovascular: Cardiovascular: Denies chest pain Respiratory: Respiratory: Denies cough and Denies dyspnea Gastrointestinal: Gastrointestinal: Denies abdominal pain, Denies nausea and Denies vomiting Genitourinary: Genitourinary: Reports no additional male genitourinary complaints Musculoskeletal: [facility] – [place], [place]
[2020-01-10 20:33] LABS: Hepatitis B Core Ab Total Nonreactive (Nonreactive)
[2020-01-10] MEDS: ROSUVASTATIN 5 MG TABLET PO (21:19)
[2020-01-10] MEDS: HEPARIN SOD/D5W 100 UNITS/ML 25,000 UNITS/250 ML BAG 7 UNITS IV CONT (22:41)
[2020-01-11] VITALS (43 sets, daily range): BP systolic 112–163; BP diastolic 51–78; PULSE 47–81; RESP 12–118; TEMP 36.1–37; O2SAT 93–100
[2020-01-11 05:07] LABS: Hematocrit 27.4 % (42.0-52.0); Hemoglobin 8.7 g/dL (14.0-18.0); Mean Corpuscular HGB Conc 31.8 g/dl (32-36); Mean Corpuscular Hemoglobin 31.4 pg (26-34); Mean Corpuscular Volume 98.9 fl (80-100); Mean Platelet Volume 11.4 fl (7.4-10.4); Platelet Count Result 224 k/mm3 (150-375); Red Blood Count 2.77 M/mm3 (4.6-6.20); Red Cell Distribution Width 14.2 % (11.5-14.5); White Blood Count 2.7 K/mm3 (4.5-10.0)
[2020-01-11 05:29] LABS: Albumin Level 3.1 g/dL (3.5-5.1); Blood Urea Nitrogen 73 mg/dL (9-20); Calcium 7.1 mg/dL (8.4-10.2); Carbon Dioxide 17 mmol/L (22-30); Chloride 112 mmol/L (98-107); Estimated CRCL calculation 9 ml/min; Estimated Glomerular Filt Rate 8; Glucose 86 mg/dL (75-110); Phosphorus 4.4 mg/dL (2.5-4.5); Potassium 4.7 mmol/L (3.4-5.0); Sodium 138 mmol/L (137-145)
[2020-01-11] MEDS: CHLORHEXIDINE GLUCONATE 4% SOL 120 ML BTL 1 APPLIC TOPICAL (05:31)
--- NOTE | 2020-01-11 08:15 | PC.NURSE ---
Patient left floor to surgery
--- NOTE | 2020-01-11 08:41 | PM.IMPN ---
Progress Note: A&P Assessment and Plan (1) Chest pain: Qualifiers: Chest pain type: unspecified Qualified Code(s): R07.9 - Chest pain, unspecified Code(s): R07.9 - Chest pain, unspecified Status: Acute Assessment and Plan: Cardiology consulted and appreciate input. Serial troponin levels elevated as noted below. Had additional episode of chest pain on 01/09/2020. Plan for cardiac catheterization today after dialysis cather placement followed by hemodialysis. Telemetry reviewed on 01/11/2020 with sinus rhythm. Echocardiogram with EF 65-70%, small round mobile echodensity in the right atrium likely representing prominent malika terminalis and no pulmonary hypertension. Will continue to monitor. Await further recommendations from cardiology after procedure. (2) Elevated troponin: Code(s): R79.89 - Other specified abnormal findings of blood chemistry Status: Acute Assessment and Plan: Troponin did peak at 0.460 with level down to 0.174 on 01/09/2020. Plan for cardiac catheterization today. (3) CKD (chronic kidney disease), stage IV: Code(s): N18.4 - Chronic kidney disease, stage 4 (severe) Status: Acute Assessment and Plan: Nephrology consulted and appreciate input. Most likely this is actually progression of disease with creatinine remaining elevated at 6.50 today. Plan for hemodialysis today after cardiac catheterization. General surgery consulted with plan for placement of dialysis catheter this morning before cardiac catheterization. No uremic symptoms. Still hoping for ability to do peritoneal dialysis as an outpatient. Will continue to monitor. (4) Hyperkalemia: Code(s): E87.5 - Hyperkalemia Status: Acute Assessment and Plan: Result of renal failure. Potassium better at 4.7 today. Lisinopril discontinued. Received Kayexalate on 01/09/2020 per cardiology. Will continue to monitor. (5) Chronic heart failure: Qualifiers: Heart failure type: unspecified Qualified Code(s): I50.9 - Heart failure, unspecified Code(s): I50.9 - Heart failure, unspecified Status: Chronic Assessment and Plan: Cardiology following as noted above. Echocardiogram results as noted above. Stable without exacerbation. Will continue to monitor clinically. (6) Normocytic anemia: Code(s): D64.9 - Anemia, unspecified Status: Chronic Assessment and Plan: No signs of acute blood loss. Most likely result of chronic kidney disease/multiple myeloma. Hemoglobin stable at 8.7 today. Continue to follow. (7) Multiple myeloma: Qualifiers: Multiple myeloma remission status: unspecified Qualified Code(s): C90.00 - Multiple myeloma not having achieved remission Code(s): C90.00 - Multiple myeloma not having achieved remission Status: Acute Assessment and Plan: Stable. WBC currently 2.7, hemoglobin 8.7/hematocrit 27.4 and platelets 224,000. Will monitor. (8) DVT prophylaxis: Code(s): Z29.9 - Encounter for prophylactic measures, unspecified Status: Acute Assessment and Plan: SCDs. Time Spent With Patient Time with patient: 15 - 25 minutes Subjective Date/time seen: 01/11/20 08:41 Interval history: Date of Service: 01/11/2020. Admitted with chest pain and acute on chronic renal failure. Did not sleep well last night but not sure why. No chest pain. No chest pressure. No shortness of breath. No abdominal pain. No nausea or vomiting. Review of Systems Constitutional: Constitutional: Denies chills, Reports difficulty sleeping and Denies fever(s) ENT: Denies nasal congestion and Denies nasal discharge Cardiovascular: Cardiovascular: Denies chest pain Respiratory: Respiratory: Denies cough and Denies dyspnea Gastrointestinal: Gastrointestinal: Denies abdominal pain, Denies nausea and Denies vomiting Genitourinary: Genitourinary: Reports no additio
--- NOTE | 2020-01-11 08:43 | WPDANESEPPF ---
Anes - Initial Pre Proc Eval Procedure: Operation Date: 01/11/20 09:00 Proposed Procedures p Insertion Tunnel Dialysis Catheter Under Fluro - Pérez Marina MD Operation Date: 01/11/20 12:30 Proposed Procedures p Left Heart Cath - Wilfrido Guthrie MD Date/Time: 01/11/20 08:43 Surgeon: Maria Alejandra Valencia MD Pre Op Diagnosis: chest pain, ckd/heart failure/multiple myeloma Patient Data Age: 79 Gender: M Height: 6 ft Weight: 75.5 kg Last Vital Signs Temp 36.7 C 01/11/20 08:30 Pulse 59 L 01/11/20 08:30 Resp 16 01/11/20 08:30 BP 160/70 H 01/11/20 08:30 Pulse Ox 97 01/11/20 08:30 Allergies Allergy/AdvReac Type Severity Reaction Status Date / Time codeine AdvReac Confusion Verified 01/07/20 22:04 Home Medications Medication Instructions Recorded Confirmed Type daratumumab [Darzalex] 20 mg IV MONTHLY 01/07/20 01/08/20 History lisinopril 2.5 mg PO DAILY 01/07/20 01/08/20 History pomalidomide [Pomalyst] 4 mg PO DAILY 01/07/20 01/08/20 History tamsulosin 0.4 mg PO DAILY 01/07/20 01/08/20 History valacyclovir 500 mg PO DAILY 01/07/20 01/08/20 History dexamethasone 4 mg PO DAILY 01/08/20 01/08/20 History diphenoxylate-atropine 1 tablet PO TID PRN 01/08/20 01/08/20 History lorazepam 1 mg PO TID PRN 01/08/20 01/08/20 History polyethylene glycol 3350 17 g PO DAILY PRN 01/08/20 01/08/20 History Laboratory Tests 01/08/20 01/09/20 01/09/20 15:10 13:40 13:40 WBC RBC Hgb Hct MCV MCH MCHC RDW Plt Count MPV APTT Sodium Potassium Chloride Carbon Dioxide BUN Creatinine Estim Creat Clear Calc Estimated GFR Glucose Calcium Phosphorus Albumin Hep Bs Antigen Negative (Negative) Hep Bs Antibody Negative Hep B Core Total Ab Nonreactive (Nonreactive) Hepatitis C Ab Screen Negative (Negative) Blood Type Antibody Screen Antibody Identification Antigen Identification URSULA, IgG Interpret URSULA, Poly Interpret URSULA, Complement Interp 01/10/20 01/10/20 01/11/20 10:09 12:48 04:15 WBC 2.7 K/mm3 L K/mm3 (4.5-10.0) RBC 2.77 M/mm3 L M/mm3 (4.6-6.20) Hgb 8.7 g/dL L g/dL (14.0-18.0) Hct 27.4 % L % (42.0-52.0) MCV 98.9 fl fl (80-100) MCH 31.4 pg pg (26-34) MCHC 31.8 g/dl L g/dl (32-36) RDW 14.2 % % (11.5-14.5) Plt Count 224 k/mm3 k/mm3 (150-375) MPV 11.4 fl H fl (7.4-10.4) APTT 60.9 SECONDS H SECONDS (22.3-36.8) Sodium Potassium Chloride Carbon Dioxide BUN Creatinine Estim Creat Clear Calc Estimated GFR Glucose Calcium Phosphorus Albumin Hep Bs Antigen Hep Bs Antibody Hep B Core Total Ab Hepatitis C Ab Screen Blood Type A Positive Antibody Screen Positive Antibody Identification See Comments Antigen Identification Cancelled URSULA, IgG Interpret Not Performed URSULA, Poly Interpret Negative URSULA, Complement Interp Not Performed 01/11/20 04:15 WBC RBC Hgb Hct MCV MCH MCHC RDW Plt Count MPV APTT Sodium 138 mmol/L mmol/L (137-145) Potassium 4.7 mmol/L mmol/L (3.4-5.0) Chloride 112 mmol/L H mmol/L (98-107) Carbon Dioxide 17 mmol/L L mmol/L (22-30) BUN 73 mg/dL H mg/dL (9-20) Creatinine 6.
--- NOTE | 2020-01-11 08:45 | WPDHPUPDATE1 ---
History and Physical Update Update Date/Time: 01/11/20 08:45 History and Physical has been reviewed, including an updated exam of the patient. There are changes in the patient's condition. The Pt. had been put on a heparin drip and started on plavix during this hospital stay. Both of these have been held for this procedure. Risks, benefits, and alternatives of placement of a tunnelled dialysis catheter have been discussed and questions answered. Patient agrees to proceed with procedure.
[2020-01-11] MEDS: ceFAZolin 2 GM/D5W 50 ML 2 GM/50 ML BAG IVPB (08:51)
[2020-01-11] MEDS: SODIUM CHLORIDE 0.9% IV 500 ML 30 ML IV CONT (08:53)
--- NOTE | 2020-01-11 09:08 | PCDIET ---
Nutrition consult received. Patient currently NPO for cardiac cath with plan for dialysis later today. Will provide low potassium education when patient available/appropriate. Information also added to discharge paperwork.
[2020-01-11] MEDS: BUPIVACAINE/EPINEPHRINE 0.25% 50 ML VIAL 10 ML INFILTRATE (09:40)
[2020-01-11] MEDS: HEPARIN SODIUM, PORCINE 10,000 UNITS/10 ML VIAL 4000 UNITS IV PUSH (09:41)
[2020-01-11] MEDS: HEPARIN SODIUM 1,000 UNITS/ML VIAL 1000 UNITS IV PUSH ×2 (09:42→19:19)
--- NOTE | 2020-01-11 10:18 | PM.PROC ---
Procedure Note - Detailed Date of procedure: 01/11/20 Pre-op diagnosis: chest pain, ckd/heart failure/multiple myeloma End-stage renal disease Angina and CAD Post-op diagnosis: same Procedure performed: Placement of tunneled dialysis catheter Description of procedure: The patient was placed in the supine position on the operating table and after induction of adequate mask general anesthesia by the nurse piecer, we carefully rotated the patient's head and tilted slightly to the left then prepping both sides of the neck and chest with chlorhexidine. After waiting 3 minutes I carefully draped the patient, and we performed a time-out confirming the patient's site of surgery. Because of his size, a 28 cm DuraFlow catheter was selected. I used ultrasound to identify the right jugular vein in the mid/lower RT. neck and this was cannulated under direct vision with an 18-gauge Arrow needle on a syringe. Good dark blood was aspirated, the J-guidewire was advanced through the needle and into the central venous system under usual Seldinger technique. C-arm fluoroscopy was used to confirm that the wire was then through the central venous system and then we removed the needle and blue guide off the wire. Following this, we measured the DuraFlow catheter such that the tip would be just into the right atrium or in the distal superior vena cava. A hemostat was placed on the drapes over the chest to guide where we would place this. Then the catheter was measured back to the entry site of the J- wire in a curvilinear fashion and down to his chest overlying the right clavicle. Local anesthetic was placed into 3 sanchez, the exit site and then 2 more on his lateral neck such that a curvilinear path could be dissected through the subcutaneous tissues up to the insertion site on his right neck. Local anesthetic was infiltrated along the tract prior to tunneling. Incisions were made with an 11 blade knife at the exit site and the 2 counter incisions and then an 11 blade at the wire. The tunneling device was connected to the catheter and this was pulled through these incisions to make the subcutaneous tunnel a curvilinear course through the subcutaneous tissues to the insertion site on the Rt. neck. Then the wire was serially dilated with a 12, 14, and then a 16-Ghanaian dilator over the pull away sheath. We watched the 16-Ghanaian dilator and sheath go down into the central venous system with C-arm fluoroscopy and then removed the dilator wire after carefully covering the end of the catheter. I lost some blood, as we then inserted the catheter down into the central venous system. The catheter was held in place with a DeBakey forceps and then we carefully tore away the sheath leaving the catheter within the subcutaneous tissues and down into the juglar vein. Following this, C-arm fluoroscopy was used to examine the full course of the catheter. The tip was just into the right atrium and there was a good curvilinear course of the catheter in the neck down to the exit site over the right clavicle. Minimal bleeding was continuing, so we then went ahead and closed these incisions with some buried subcutaneous sutures of 4-0 Monocryl directly over the catheter at the insertion site and then buried subcutaneous sutures at each of the incisions except the exit site. 3-0 nylon was used to suture the catheter at its hub to the skin and an antibiotic disc was placed at the exit site. Tegaderm applied over this and the patient was taken to the recovery room in good condition. No continuing bleeding was identified in the recovery room. The patient tolerated the procedure well. Chest x-ray in the recovery room shows the tip to be at the distal superior vena cava or just into the right atrium. No evidence of pneumothorax was seen. Estimated blood loss was again about 15 cc. Anesthesia: local (2% xylocaine with epinephrine) and other (GIVS) Surgeon: Pérez Marina MD Drains: No Packing: No Pat
--- NOTE | 2020-01-11 13:01 | PC.NURSE ---
Patient left floor to Cardiac Secretarial Teacher.
--- NOTE | 2020-01-11 13:40 | PC.NURSE ---
Patient left floor to attend dialysis treatment.
--- NOTE | 2020-01-11 14:15 | WPDMODSED ---
Moderate Sedation Note-Pt Data Patient Data Allergies Allergy/AdvReac Type Severity Reaction Status Date / Time codeine AdvReac Confusion Verified 01/07/20 22:04 Home Medications Medication Instructions Recorded Confirmed Type daratumumab [Darzalex] 20 mg IV MONTHLY 01/07/20 01/08/20 History lisinopril 2.5 mg PO DAILY 01/07/20 01/08/20 History pomalidomide [Pomalyst] 4 mg PO DAILY 01/07/20 01/08/20 History tamsulosin 0.4 mg PO DAILY 01/07/20 01/08/20 History valacyclovir 500 mg PO DAILY 01/07/20 01/08/20 History dexamethasone 4 mg PO DAILY 01/08/20 01/08/20 History diphenoxylate-atropine 1 tablet PO TID PRN 01/08/20 01/08/20 History lorazepam 1 mg PO TID PRN 01/08/20 01/08/20 History polyethylene glycol 3350 17 g PO DAILY PRN 01/08/20 01/08/20 History Current Medications: Active Medications Acetaminophen (Tylenol Tablet) 650 mg PO Q4H PRN PRN Reason: Mild Pain (1-3) or Fever Acetaminophen (Tylenol Tablet) 500 mg PO Q6H PRN PRN Reason: Mild Pain (1-3) or Fever Hydrocodone Bitart/Acetaminophen ([place] 5-325 Mg) 1 tab PO Q4H PRN PRN Reason: Pain Rated 4-6 Last Admin: 01/09/20 05:01 Dose: 1 tab Documented by: Hydrocodone Bitart/Acetaminophen ([place] 7.5-325 Mg) 1 tab PO Q4H PRN PRN Reason: Pain Rated 7-10 Aspir[facility] (A[facility]in Ec) [facility] [place] Last Admin: 01/10/20 08:32 Dose: 81 mg Documented by: Clopidogrel Bisulfate (Plavix) 75 mg PO QAM [facility] Last Admin: 01/10/20 08:32 Dose: 75 mg Documented by: Dexamethasone (Dexamethasone Po) 4 mg PO DAILY [facility] Last Admin: 01/10/20 08:32 Dose: 4 mg Documented by: Diphenhydramine HCl (Benadryl Inj) 25 mg IV PUSH Q6H PRN PRN Reason: Itching Diphenoxylate HCl/Atropine (Lomotil Tab 2.5 Mg) 1 tablet PO TID PRN PRN Reason: pt. not sure why Epoetin Brandon (Epogen) 10,000 units SUB-Q TuThSa@1200 [facility] Last Admin: 01/09/20 11:50 Dose: Not Given Documented by: Iron Sucrose 200 mg/ Sodium (Chloride) 60 mls @ 120 mls/hr IVPB Q24H [facility] Stop: 01/13/20 12:29 Last Admin: 01/10/20 11:37 Dose: 120 mls/hr Documented by: Sodium Chloride (Normal Saline Iv) 500 mls @ 100 mls/hr IV CONT .Q5H [facility] Sodium Chloride (Normal Saline Iv) 500 mls @ 30 mls/hr IV CONT .[id number] [facility] Last Infusion: 01/11/20 11:19 Dose: Infused Documented by: Lorazepam (Ativan Tab) 1 mg PO TID PRN PRN Reason: Anxiety Metoprolol Tartrate (Lopressor) 12.5 mg PO Q12HR [facility] Last Admin: 01/10/20 21:18 Dose: 12.5 mg Documented by: Morphine Sulfate (Morphine Sulfate Inj) 4 mg IV PUSH Q2H PRN PRN Reason: Pain Rated 7-10 Naloxone HCl (Narcan) 0.1 mg IV PUSH Q2M PRN PRN Reason: Opiate Reversal Nitroglycerin (Nitrostat Subl 0.4 Mg (1/150)) 0.4 mg SUBLINGUAL Q5MIN PRN PRN Reason: Chest Pain Last Admin: 01/09/20 08:01 Dose: 0.4 mg Documented by: Non-Formulary Medication (Daratumumab) 20 mg IVPB MONTHLY [facility] Stop: 02/07/20 09:01 Non-Formulary Medication (Pomalidomide [Pomalyst]) 4 mg PO DAILY [facility] Stop: 02/07/20 09:01 Ondansetron HCl (Zofran Inj) 4 mg IV PUSH Q4H PRN PRN Reason: Nausea Polyethylene Glycol (Miralax) 17 gm PO DAILY PRN PRN Reason: Constipation Rosuvastatin Calcium (Crestor) 5 mg PO HS [facility] Last Admin: 01/10/20 21:19 Dose: 5 mg Documented by: Tamsulosin HCl (Flomax) 0.4 mg PO DAILY [facility] Last Admin: 01/10/20 08:32 Dose: 0.4 mg Documented by: Valacyclovir HCl (Valtrex) 500 mg PO DAILY [facility] Last Admin: 01/10/20 08:32 Dose: 500 mg Documented by: Sedation/Anesthesia: No previous sedation/anesthesia problems (including family history). [facility] Past Medical History Medical History CHF (congestive heart failure) CKD (chronic kidney disease), stage IV Multiple myeloma Non-ST elevation myocardial infarction (NSTEMI) Surgical History Surgical History H/O shoulder replacement Family History Family History (Reviewed 01/11/20 @ 08:44 by Maciel Medina
--- NOTE | 2020-01-11 14:15 | PM.PNCARD ---
Progress Note: A&P Assessment and Plan (1) Non-ST elevation myocardial infarction (NSTEMI): Code(s): I21.4 - Non-ST elevation (NSTEMI) myocardial infarction Status: Acute Assessment and Plan: Trop up to 5. Continue Heparin dtip. Cardiac catheterization revealed multiple areas of narrowing with significant calcification, 40% left main, 50% proximal LAD, 99% mid LAD stenosis, treated with stent 2.25 x 15 mm. He needs to stay on aspirin, Brilinta, with metoprolol. Okay to proceed with dialysis now (2) CKD (chronic kidney disease), stage IV: Code(s): N18.4 - Chronic kidney disease, stage 4 (severe) Status: Acute Assessment and Plan: Nephrology on board. he has temporary access for possible dialysis, he can proceed with that now after his cardiac catheterization (3) Multiple myeloma: Qualifiers: Multiple myeloma remission status: unspecified Qualified Code(s): C90.00 - Multiple myeloma not having achieved remission Code(s): C90.00 - Multiple myeloma not having achieved remission Status: Acute Subjective Date/time seen: 01/11/20 14:15 Feels well today, no more chest pain since yesterday. Underwent cardiac catheterization revealing severe LAD disease with 99% mid LAD stenosis seems to be calcified vessel treated with angioplasty with stent placement placing 2.25 x 15 mm stent. Exam Const: General: alert and awake; No acute distress HENMT: Head: normal to inspection and atraumatic Ears: hearing grossly normal bilaterally Face and sinus: normal facial exam Eyes: General: appearance normal, both eyes and all related structures Pupils: Equal, round and reactive pupils present EOM: EOMs intact bilaterally Neck: Neck: normal visual inspection and no JVD Chest: Chest palpation & inspection: normal inspection of the chest Resp: Effort & Inspection: normal respiratory effort and no respiratory distress Auscultation: clear to auscultation bilaterally Cardio: Jugular venous distension: no JVD Rate: regular rate Heart sounds: S1 normal heart sound present, S2 normal heart sound present and no murmurs GI: Inspection: normal to inspection Auscultation: normal bowel sounds Skin: General skin exam: normal color Neuro: Cranial nerves: Yes Equal, round and reactive pupils present Extrem: General: normal to inspection and no clubbing, cyanosis or edema Objective Data Vital Signs Vital Signs: Vital Signs - 24 hr 01/10/20 15:53 01/10/20 16:00 01/10/20 18:00 Temperature 36.2 C L Pulse Rate 61 60 75 Respiratory Rate 14 Blood Pressure 137/48 L Pulse Oximetry 100 01/10/20 20:00 01/10/20 22:00 01/11/20 00:00 Temperature 36.8 C 36.2 C L Pulse Rate 60 72 47 L Respiratory Rate 20 18 Blood Pressure 148/48 H 140/67 Pulse Oximetry 98 95 01/11/20 02:00 01/11/20 03:55 01/11/20 04:00 Temperature 36.1 C L Pulse Rate 55 L 55 L 56 L Respiratory Rate 20 Blood Pressure 149/73 H Pulse Oximetry 99 01/11/20 05:58 01/11/20 08:00 01/11/20 08:30 Temperature 36.7 C Pulse Rate 58 L 70 59 L Respiratory Rate 16 Blood Pressure 160/70 H Pulse Oximetry 97 01/11/20 09:01 01/11/20 10:15 01/11/20 10:30 Temperature 36.6 C 36.6 C Pulse Rate 55 L 67 58 L Respiratory Rate 20 15 14 Blood Pressure 135/51 L 121/60 134/60 Pulse Oximetry 100 93 95 01/11/20 10:45 01/11/20 11:00 01/11/20 11:15 Temperature Pulse Rate 54 L 54 L 57 L Respiratory Rate 12 13 12 Blood Pressure 133/61 134/59 L 126/58 L Pulse Oximetry 95 95 95 01/11/20 11:19 01/11/20 12:00 01/11/20 12:04 Temperature 36.6 C 36.6 C Pulse Rate 62 62 59 L Respiratory Rate 14 12 Blood Pressure 127/54 L 152/53 H Pulse Oximetry 99 98 01/11/20 12:49 01/11/20 12:57 01/11/20 13:04 Temperature 36.6 C 36.6 C 36.6 C Pulse Rate 62 59 L 56 L Respiratory Rate 14 12 12 Blood Pressure 127/54 L 152/53 H 131/56 L Pulse Oximetry 99 98 99 Intake/Output Intake/Output
--- NOTE | 2020-01-11 14:17 | WPDCARDPROC ---
Cardiac Cath Procedure Note Date of procedure:: 01/11/20 Performing physician:: Wilfrido Guthrie MD Procedure: 1. Left heart catheterization, selective coronary angiogram. 2. Left ventricular pressure and hemodynamic measurement 3. with balloon angioplasty with stent placement to the mid LAD, Using drug-eluting 2.25 x 15 mm stent 4. femoral artery angiogram, with Angio-Seal device for arterial hemostasis 5. conscious sedation using 1 mg of Versed 25 mcg fentanyl starting time is 1:34 p.m. ending time is 2:06 p.m. Architectural Associate: Dr. Wilfrido Guthrie Complications: None. Sedation: Conscious sedation, local anesthesia, using 1 mg of Versed said, 25 mcg of fentanyl, and using 1% lidocaine for local anesthesia. Technique: After informed consent was obtained from patient, was brought to the catheterization laboratory technician, put in the catheterization laboratory technician table, prepped and draped in usual sterile fashion. Five [place] sheath was inserted into the right common femoral artery, through the sheath 5 [place]ibian JL4 catheter inserted, advanced to the left coronary artery, left coronary artery angiogram was obtained. The catheter was exchanged over guidewire into a 5 [place] JR4 catheter, advanced to the right coronary artery, right coronary artery angiogram was obtained. The catheter then was exchanged over guidewire into this 5 [place] pigtail catheter, advanced to left ventricle, left ventricular pressure was obtained. Sheath was exchanged over the guidewire to 6 [place] sheath, CLS 3.5 guide was inserted advanced to the left main, and repeat angiogram was repeated, and patient was identified, BMW wire was inserted advanced across the lesion. After the lesion was crossed 2.0 x 12 mm balloon was inserted across the lesion, and inflation was done with 6 atmospheric pressure. Post balloon angioplasty repeat angiogram was done, showed significant improvement of the lesion. After that a stent was placed using 2.25 by 15 drug-eluting stent, advanced to the mid LAD and stent was placed using 9 atmospheric pressures. Post stent deployment angiogram was done, subsequently nitroglycerin was given 200 mcg intracoronary, and repeat angiogram was done, showed good improvement of the lesion with good distal flow and NIGHAT 3 flow. The guide was removed, angiogram of the right femoral artery was done, showed the sheath in good position, Angio-Seal device was and installed with good result Patient tolerated showed no complication, taken to the catheterization laboratory technician to his room in stable condition stable vital signs. Hemodynamics: aortic pressure 124/60 . LV pressure 124/04 with LVEDP of 4 mmHg Angiographic findings: Left main: Medium size artery with ostial 25% calcified stenosis Lad medium size artery showed proximal LAD 0% narrowing followed by 99% narrowing in the mid section. 1st diagonal branch shows calcified ostial 60% disease 2nd diagonal showed small vessel but 75% disease with calcification Left circumflex artery, medium size artery, showed calcified ostial and proximal 50% disease RCA: Dominant vessel, showed no significant disease or stenosis summary: Significant coronary disease to multiple lesion, but critical lesion in the LAD treated with balloon angioplasty followed by stent placement with good results. stent was used is drug-eluting 2.25 x 15 Recommendation: continue with aspirin and Brilinta for at least 6 months
--- NOTE | 2020-01-11 14:20 | SUR.PHASEII ---
BEGIN PHASE II RECOVERY. RETURNS VIA STRETCHER TO [facility] 4 S/P LHC W/ PCI TO MID LAD WITH DR. OROURKE. PT. IS INPATIENT FROM ROOM 203 IMU. AWAKE AND ALERT, ORIENTED X 4. DENIES CP OR SOB UPON ARRIVAL. ANGIOMAX GTT CONTINUES AT 15.1 ML/HR VIA PUMP TO WNL IV SITE L. FOREARM. IVF'S RUNNING ORDERED. R. GROIN PUNCTURE SITE CLOSED W/ ANGIOSEAL DEVICE. SITE SOFT, NONTENDER. NO BLEEDING OR HEMATOMA NOTED. GUAZE DRESSING AND TEGADERM DRESSING OVER SITE C/D/I. R. PEDAL PULSE STRONG. REVIEWED BEDREST ACTIVITY RESTRICTIONS W/ PT. VOICED UNDERSTANDING. WILL MONITOR.
--- NOTE | 2020-01-11 14:26 | ECG_ITS ---
Measurements Intervals [place] Rate: 63 P: 55 SD: 136 QRS: -36 QRSD: 90 T: 61 QT: 439 QTc: 453 Interpretive Statements SINUS RHYTHM LEFT AXIS DEVIATION MINIMAL Q WAVES- LATERAL LEADS BORDERLINE T WAVE ABNORMALITY- ANTERIOR LEADS BASELINE ARTIFACT- V4 BORDERLINE ECG Electronically Signed On 01-11-2020 15:33:17 CDT by Jose Ramon Lao D.O.
--- NOTE | 2020-01-11 14:45 | SUR.PHASEII ---
POST PROCEDURE EKG COMPLETED AND SHOWN TO DR. OROURKE. DR. OROURKE TO BEDSIDE TO SEE PT. NO NEW CHANGES. WILL CONTINUE TO MONITOR.
--- NOTE | 2020-01-11 14:57 | PC.NURSE ---
Patient returned from OR at 1130. No C/O pain and no Signs and Symptoms of distress.
--- NOTE | 2020-01-11 15:27 | SUR.PHASEII ---
ANGIOMAX GTT CONTINUES AT 15.1ML/HR VIA PUMP. HAS TOLERATED BEDREST WELL. R. GROIN PUNCTURE SITE REMAINS SOFT, NONTENDER, NO BLEEDING OR HEMATOMA. DRESSING D/I. VSS. REPORT CALLED TO JEVON CASTELLANOS IN IMU.
--- NOTE | 2020-01-11 15:35 | SUR.PHASEII ---
END PHASE II RECOVERY. RETURNED TO IMU ROOM 203 VIA BED ON TELE MONITOR VIA STRETCHER. BEDREST CONTINUES UNTIL 1605. ANGIOMAX GTT CONTINUES, BUT IS NEARLY COMPLETE. MANUEL SITE OBSERVED W/ IMU NURSE ARIELA CASTELLANOS; NO NEW CHANGES. VSS. VOICES NO C/O.
--- NOTE | 2020-01-11 15:43 | PC.NURSE ---
Patient returned to floor from Cardiac Electromedical Equipment Repairer
--- NOTE | 2020-01-11 15:57 | SUR.PHASEII ---
1523; error. pt not in outpatient
--- NOTE | 2020-01-11 16:59 | PC.NURSE ---
Patient left floor to attend dialysis.
[2020-01-11] MEDS: NITROGLYCERIN OINTMENT 1 INCH DOSE 0.5 INCH TRANSDERM ×2 (17:03→21:22)
--- NOTE | 2020-01-11 17:15 | PM.PNNEP ---
Progress Note: A&P Assessment and Plan (1) CKD (chronic kidney disease), stage V: Code(s): N18.5 - Chronic kidney disease, stage 5 Status: Chronic Assessment and Plan: well established diagnosis thought to be secondary to myeloma kidney in spite of advanced disease, he has no issues with volume overload or uremia has known issues with mild metabolic acidosis and elevated potassium levels though in an effort to preserve kidney function, dialysis today following contrast exposure and reassess stability of kidney function in the next 24 - 48 hours - patient is interested in peritoneal dialysis if he needs to start chronic dialysis therapy - unfortunately, he needs to be on anticoagulation for at least 6 months given stent placement -- suspect no surgery for 6 months as well by default if his kidney function remains stable, perhaps we can hold off dialysis for another 6 months - if he needs to continue dialysis, then he will remains on hemodialysis with eventual transition to peritoneal dialysis (2) Chest discomfort: Code(s): R07.89 - Other chest pain Status: Acute Assessment and Plan: s/p cardiac cahteterization s/p stenting and angioplasty Cardiology following (3) Hyperkalemia: Code(s): E87.5 - Hyperkalemia Status: Acute Assessment and Plan: potassium stable dialysis treatment should help this as well (4) Normocytic anemia: Code(s): D64.9 - Anemia, unspecified Status: Chronic Assessment and Plan: due to #1 and myeloma Epogen therapy follow trend of H/H (5) Multiple myeloma: Qualifiers: Multiple myeloma remission status: unspecified Qualified Code(s): C90.00 - Multiple myeloma not having achieved remission Code(s): C90.00 - Multiple myeloma not having achieved remission Status: Acute Assessment and Plan: follow with Dr. Nicolas Will continue to follow. Subjective Date/time seen: 01/11/20 17:15 Chart/Interim reviewed -- s/p cardiac catheterization with intervention noted earlier today; tolerating dialysis at the time of my visit (see on on HD at ~ 5:00); no apparent distress noted. Exam Narrative: Exam Narrative: General: WD/WN male in NAD Heart: normal S1 and S2; no rub Lungs: clear to auscultation Abdomen: soft, nontender, nondistended, positive bowel sounds Extremities: no cyanosis or clubbing; no edema Skin: warm and dry Objective Data Vital Signs Vital Signs: Vital Signs Temp Pulse Resp BP Pulse Ox 01/11/20 17:04 36.7 C 61 14 152/57 H 100 01/11/20 16:50 36.6 C 63 16 163/78 H 01/11/20 16:33 36.6 C 61 14 152/57 H 100 01/11/20 13:04 36.6 C 56 L 12 131/56 L 99 01/11/20 12:57 36.6 C 59 L 12 152/53 H 98 01/11/20 12:49 36.6 C 62 14 127/54 L 99 01/11/20 12:04 36.6 C 59 L 12 152/53 H 98 01/11/20 12:00 62 01/11/20 11:19 36.6 C 62 14 127/54 L 99 01/11/20 11:15 57 L 12 126/58 L 95 01/11/20 11:00 54 L 13 134/59 L 95 01/11/20 10:45 54 L 12 133/61 95 01/11/20 10:30 58 L 14 134/60 95 01/11/20 10:15 36.6 C 67 15 121/60 93 01/11/20 09:01 36.6 C 55 L 20 135/51 L 100 01/11/20 08:30 36.7 C 59 L 16 160/70 H 97 01/11/20 08:00 70 01/11/20 05:58 58 L 01/11/20 04:00 36.1 C L 56 L 20 149/73 H 99 01/11/20 03:55 55 L 01/11/20 02:00 55 L 01/11/20 00:00 36.2 C L 47 L 18 140/67 95 01/10/20 22:00 72 01/10/20 20:00 36.8 C 60 20 148/48 H 98 01/10/20 18:00 75 Intake/Output Intake/Output: Intake & Output 01/08/20 01/09/20 01/10/20 01/11/20 23:59 23:59 23:59 23:59 Intake Total 9957 352 5554 85 Output Total 1850 2100 1650 1800 Drugkvk -[phone] Meds/Results Medications: Active Medications Generic Name Dose Route Start Last Admin Trade Name Freq PRN Reason Stop Dose Admin Acetaminophen 650 mg 01/08/20 00:04
[2020-01-11] MEDS: EPOETIN ALFA 10,000 UNITS/ML VIAL 10000 UNITS IV PUSH (17:51)
--- NOTE | 2020-01-11 19:57 | PC.NURSE ---
1930 RETURNED FROM DIALYSIS NOTED SMALL AMT OF BLOODY DRAINAGE FROM RIGHT CHEST CATHETER. MARILUZ. REINFORCED.
[2020-01-11] MEDS: TICAGRELOR 90 MG TABLET PO (21:22)
[2020-01-11] MEDS: METOPROLOL TARTRATE 12.5 MG TABLET PO (21:23)
[2020-01-11] MEDS: ROSUVASTATIN 5 MG TABLET PO (21:23)
[2020-01-11] MEDS: IRON SUCROSE COMPLEX 200 MG in SODIUM CHLORIDE 0.9% IV 50 ML 120 MG IVPB (23:22)
[2020-01-12] VITALS (14 sets, daily range): BP systolic 122–160; BP diastolic 55–64; PULSE 55–76; RESP 16–18; TEMP 36.6–37.1; O2SAT 94–98
[2020-01-12 04:38] LABS: Hemoglobin 8.5 g/dL (14.0-18.0); Mean Corpuscular HGB Conc 31.5 g/dl (32-36); Mean Corpuscular Hemoglobin 31.3 pg (26-34); Mean Corpuscular Volume 99.3 fl (80-100); Mean Platelet Volume 10.7 fl (7.4-10.4); Platelet Count Result 247 k/mm3 (150-375); Red Blood Count 2.72 M/mm3 (4.6-6.20); Red Cell Distribution Width 14.3 % (11.5-14.5); White Blood Count 3.1 K/mm3 (4.5-10.0)
[2020-01-12 05:17] LABS: Albumin Level 2.7 g/dL (3.5-5.1); Blood Urea Nitrogen 48 mg/dL (9-20); Calcium 7.2 mg/dL (8.4-10.2); Carbon Dioxide 25 mmol/L (22-30); Chloride 105 mmol/L (98-107); Estimated CRCL calculation 14 ml/min; Estimated Glomerular Filt Rate 12; Glucose 87 mg/dL (75-110); Phosphorus 4.1 mg/dL (2.5-4.5); Potassium 4.3 mmol/L (3.4-5.0); Sodium 136 mmol/L (137-145)
[2020-01-12] MEDS: NITROGLYCERIN OINTMENT 1 INCH DOSE 0.5 INCH TRANSDERM ×3 (05:53→21:04)
[2020-01-12] MEDS: VALACYCLOVIR HCL 500 MG TABLET PO (08:10)
[2020-01-12] MEDS: TAMSULOSIN HCL 0.4 MG CAPSULE PO (08:10)
[2020-01-12] MEDS: TICAGRELOR 90 MG TABLET PO ×2 (08:10→21:03)
[2020-01-12] MEDS: METOPROLOL TARTRATE 12.5 MG TABLET PO ×2 (08:10→21:04)
[2020-01-12] MEDS: ASPIRIN 81 MG ENTERIC TABLET PO (08:10)
--- NOTE | 2020-01-12 10:05 | PM.PNNEP ---
Progress Note: A&P Assessment and Plan (1) CKD (chronic kidney disease), stage V: Code(s): N18.5 - Chronic kidney disease, stage 5 Status: Chronic Assessment and Plan: well established diagnosis thought to be secondary to myeloma kidney in spite of advanced disease, he has no issues with volume overload or uremia has known issues with mild metabolic acidosis and elevated potassium levels though at baseline in an effort to preserve kidney function, dialysis yesterday following contrast exposure and reassess stability of kidney function in the next 24 hours - patient is interested in peritoneal dialysis if he needs to start chronic dialysis therapy - unfortunately, he needs to be on anticoagulation for at least 6 months given stent placement -- suspect no surgery (for PD catheter) for 6 months as well by default due to necessity of anticoagulation if his kidney function remains stable, perhaps we can hold off dialysis for another 6 months - if he needs to continue dialysis, then he will remains on hemodialysis with eventual transition to peritoneal dialysis no HD today and follow trend of labs and UOP (2) Chest discomfort: Code(s): R07.89 - Other chest pain Status: Acute Assessment and Plan: s/p cardiac cahteterization s/p stenting and angioplasty Cardiology following (3) Hyperkalemia: Code(s): E87.5 - Hyperkalemia Status: Acute Assessment and Plan: potassium stable dialysis treatment has helped this (4) Normocytic anemia: Code(s): D64.9 - Anemia, unspecified Status: Chronic Assessment and Plan: due to #1 and myeloma Epogen and venofer therapy follow trend of H/H (5) Multiple myeloma: Qualifiers: Multiple myeloma remission status: unspecified Qualified Code(s): C90.00 - Multiple myeloma not having achieved remission Code(s): C90.00 - Multiple myeloma not having achieved remission Status: Acute Assessment and Plan: follow with Dr. Nicolas Will continue to follow. Subjective Date/time seen: 01/12/20 10:05 Tolerated cardiac catheterization and dialysis yesterday without any issue or problems; no chest pain or shortness of breath since I last saw him; no events overnight. Exam Narrative: Exam Narrative: General: WD/WN male in NAD Heart: normal S1 and S2; no rub Lungs: clear to auscultation Abdomen: soft, nontender, nondistended, positive bowel sounds Extremities: no cyanosis or clubbing; no edema Skin: warm and intact Objective Data Vital Signs Vital Signs: Vital Signs Temp Pulse Resp BP Pulse Ox 01/12/20 08:10 70 01/12/20 08:00 36.9 C 66 18 160/58 H 96 01/12/20 06:00 60 01/12/20 03:37 37.1 C 76 18 122/63 98 01/12/20 02:00 55 L 01/11/20 23:57 36.5 C 55 L 20 112/66 96 01/11/20 21:43 58 L 01/11/20 20:00 36.4 C 72 118 H 159/57 H 97 01/11/20 19:54 81 18 97 01/11/20 19:10 36.6 C 70 16 135/66 01/11/20 19:05 66 137/69 01/11/20 19:00 68 142/68 H 01/11/20 18:45 67 137/72 01/11/20 18:30 65 128/69 01/11/20 18:15 55 L 130/64 01/11/20 18:00 67 144/73 H 01/11/20 17:45 61 137/68 01/11/20 17:30 60 129/61 01/11/20 17:15 57 L 147/70 H 01/11/20 17:04 36.7 C 61 14 152/57 H 100 01/11/20 17:03 59 L 152/72 H 01/11/20 16:50 36.6 C 63 16 163/78 H 01/11/20 16:33 36.6 C 61 14 152/57 H 100 01/11/20 16:00 65 01/11/20 15:10 58 L 16 130/57 L 98 01/11/20 14:55 62 16 146/73 H 98 01/11/20 14:40 58 L 16 133/62 97 01/11/20 14:25 36.9 C 61 15 139/59 L 98 01/11/20 13:04 36.6 C 56 L 12 131/56 L 99 01/11/20 12:57 36.6 C 59 L 12 152/53 H 98 01/11/20 12:49 36.6 C 62 14 127/54 L 99 01/11/20 12:04 36.6 C 59 L 12 152/53 H 98 01/11/20 12:00 62 01/11/20 11:19 36.6 C 62 14 127/54 L 99 01/11/20 11:15
--- NOTE | 2020-01-12 10:52 | WPDCDIQUERY2 ---
CDI Query Clarification Request -NSTEMI has been documented by cardiology -Elevated troponins, chest pain, CAD, and angina documented by hospitalist Please clarify if NSTEMI has been ruled in or ruled out. <Babs Nieto RN - Last Filed: 01/12/20 10:56>
[2020-01-12] MEDS: IRON SUCROSE COMPLEX 200 MG in SODIUM CHLORIDE 0.9% IV 50 ML 120 MG IVPB (12:38)
[2020-01-12] MEDS: EPOETIN ALFA 10,000 UNITS/ML VIAL 10000 UNITS SUB-Q (12:38)
--- NOTE | 2020-01-12 13:27 | PCDIET ---
Low potassium diet education completed this date. See Nutritional Teaching for additional details.
--- NOTE | 2020-01-12 14:14 | WPDANESPN ---
Anes - Prog Note Post-Op Date/Time: 01/12/20 14:14 Cardiovascular status: normal Respiratory status: normal Airway patency: baseline Mental status: baseline Post-Op hydration status: normal Vital Signs: Last Vital Signs Temp 36.6 C 01/12/20 12:00 Pulse 62 01/12/20 12:00 Resp 16 01/12/20 12:00 BP 157/64 H 01/12/20 12:00 Pulse Ox 98 01/12/20 12:00 I/O: Intake & Output 01/11/20 01/12/20 01/12/20 23:59 07:59 15:59 Intake Total 60 200 Output Total 0 600 650 Balance 60 -400 -650 Laboratory Tests 01/12/20 04:15 01/12/20 04:15 01/12/20 01/12/20 04:15 04:15 WBC 3.1 L RBC 2.72 L Hgb 8.5 L Hct 27.0 L MCV 99.3 MCH 31.3 MCHC 31.5 L RDW 14.3 Plt Count 247 MPV 10.7 H Sodium 136 L Potassium 4.3 Chloride 105 Carbon Dioxide 25 BUN 48 H D Creatinine 4.60 H Estim Creat Clear Calc 14 Estimated GFR 12 L Glucose 87 Calcium 7.2 L Phosphorus 4.1 Albumin 2.7 L Patient Feedback: Patient satisfied with anesthetic care.
--- NOTE | 2020-01-12 14:43 | PM.PNCARD ---
Progress Note: A&P Assessment and Plan (1) Non-ST elevation myocardial infarction (NSTEMI): Code(s): I21.4 - Non-ST elevation (NSTEMI) myocardial infarction Status: Acute Assessment and Plan: Cardiac catheterization revealed multiple areas of narrowing with significant calcification, 40% left main, 50% proximal LAD, 99% mid LAD stenosis, treated with stent 2.25 x 15 mm. He needs to stay on aspirin, Brilinta, with metoprolol. Continue Statin (2) CKD (chronic kidney disease), stage IV: Code(s): N18.4 - Chronic kidney disease, stage 4 (severe) Status: Acute Assessment and Plan: Nephrology on board. he has temporary access fo dialysis and received session after dialysis with plan for possible another treatment tomorrow pending labs in am (3) Multiple myeloma: Qualifiers: Multiple myeloma remission status: unspecified Qualified Code(s): C90.00 - Multiple myeloma not having achieved remission Code(s): C90.00 - Multiple myeloma not having achieved remission Status: Acute Subjective Date/time seen: 01/12/20 14:43 Tolerated stent placement well. No recurrence of chest pain. Denies dyspnea. Underwent dialysis yesterday which tolerated well. Review of Systems Review of Systems: All systems reviewed & are unremarkable except as noted in HPI and below Constitutional: Constitutional: Reports as per HPI Eyes: Eyes: Reports as per HPI ENT: Reports system reviewed and no additional complaints, except as documented and Reports as per HPI Cardiovascular: Cardiovascular: Reports as per HPI Respiratory: Respiratory: Reports as per HPI Gastrointestinal: Gastrointestinal: Reports as per HPI Genitourinary: Genitourinary: Reports as per HPI Musculoskeletal: Musculoskeletal: Reports as per HPI Exam Const: General: alert and awake; No acute distress HENMT: Head: normal to inspection and atraumatic Ears: hearing grossly normal bilaterally Face and sinus: normal facial exam Eyes: General: appearance normal, both eyes and all related structures Pupils: Equal, round and reactive pupils present EOM: EOMs intact bilaterally Neck: Neck: normal visual inspection and no JVD Chest: Chest palpation & inspection: normal inspection of the chest Resp: Effort & Inspection: normal respiratory effort and no respiratory distress Auscultation: clear to auscultation bilaterally Cardio: Jugular venous distension: no JVD Rate: regular rate Heart sounds: S1 normal heart sound present, S2 normal heart sound present and no murmurs GI: Inspection: normal to inspection Auscultation: normal bowel sounds Skin: General skin exam: normal color Neuro: Cranial nerves: Yes Equal, round and reactive pupils present Extrem: General: normal to inspection and no clubbing, cyanosis or edema Objective Data Vital Signs Vital Signs: Vital Signs - 24 hr 01/11/20 14:55 01/11/20 15:10 01/11/20 16:00 Temperature Pulse Rate 62 58 L 65 Respiratory Rate 16 16 Blood Pressure 146/73 H 130/57 L Pulse Oximetry 98 98 01/11/20 16:33 01/11/20 16:50 01/11/20 17:03 Temperature 36.6 C 36.6 C Pulse Rate 61 63 59 L Respiratory Rate 14 16 Blood Pressure 152/57 H 163/78 H 152/72 H Pulse Oximetry 100 01/11/20 17:04 01/11/20 17:15 01/11/20 17:30 Temperature 36.7 C Pulse Rate 61 57 L 60 Respiratory Rate 14 Blood Pressure 152/57 H 147/70 H 129/61 Pulse Oximetry 100 01/11/20 17:45 01/11/20 18:00 01/11/20 18:15 Temperature Pulse Rate 61 67 55 L Respiratory Rate Blood Pressure 137/68 144/73 H 130/64 Pulse Oximetry 01/11/20 18:30 01/11/20 18:45 01/11/20 19:00 Temperature Pulse Rate 65 67 68 Respiratory Rate Blood Pressure 128/69 137/72 142/68 H Pulse Oximetry 01/11/20 19:05 01/11/20 19:10 01/11/20 19:54 Temperature 36.6 C Pulse Rate 66 70 81 Respiratory Rate 16 18 Blood Pressure 137/69 135/66 Pulse Oximetry 97 01/10
--- NOTE | 2020-01-12 16:50 | PM.IMPN ---
Progress Note: A&P Assessment and Plan (1) Non-ST elevation myocardial infarction (NSTEMI): Code(s): I21.4 - Non-ST elevation (NSTEMI) myocardial infarction Status: Acute Assessment and Plan: Presented 01/07 with chest pain and elevated troponin Treated with heparin aspirin Plavix beta-danuta 01/10 left heart catheterization with successful stenting of 99% mid LAD lesion, pain free since Continue on aspirin, Brilinta, metoprolol, rosuvastatin (2) CKD (chronic kidney disease), stage IV: Code(s): N18.4 - Chronic kidney disease, stage 4 (severe) Status: Acute Assessment and Plan: Dialysis was initiated after coronary angiogram on 01/10 Tolerating well (3) Hyperkalemia: Code(s): E87.5 - Hyperkalemia Status: Acute Assessment and Plan: Resolved (4) Chronic heart failure: Qualifiers: Heart failure type: diastolic Qualified Code(s): I50.32 - Chronic diastolic (congestive) heart failure Code(s): I50.9 - Heart failure, unspecified Status: Chronic Assessment and Plan: Clinically euvolemic (5) Normocytic anemia: Code(s): D64.9 - Anemia, unspecified Status: Chronic Assessment and Plan: No signs of acute blood loss. Most likely result of chronic kidney disease/multiple myeloma. 01/11 hbg 8.5 (6) Multiple myeloma: Qualifiers: Multiple myeloma remission status: unspecified Qualified Code(s): C90.00 - Multiple myeloma not having achieved remission Code(s): C90.00 - Multiple myeloma not having achieved remission Status: Acute Assessment and Plan: Clnically stable Subjective Date/time seen: 01/12/20 16:50 Interval history: Admitted 01/07 with chest pain and acute on chronic renal failure. LH Cath 01/10 with 99% mid-LAD stenosis that was stented. 01/11 Denied pain or sob. Minimal ankle swelling, improved since admission. No chest pain. No chest pressure. No shortness of breath. No abdominal pain. No nausea or vomiting. Review of Systems Review of Systems: All systems reviewed & are unremarkable except as noted in HPI and below Exam Narrative: Exam Narrative: HEENT: EOMI, PERRL, pharyngeal mucosa pink and intact NECK: No JVD CHEST: Clear to auscultation. Normal effort. HEART: NL S1/S2, regular, no murmur ABDOMEN: BS+, soft, nontender, no mass, no bruits EXTREMITIES: No cyanosis, trace ankle edema NEUROLOGIC: CN intact and symmetric to inspection. MUSCULOSKELETAL: Tone and strength symmetric. PSYCH: Alert. Oriented to person, place, and time. Objective Data Vital Signs Vital Signs: Vital Signs - 24 hr 01/11/20 17:03 01/11/20 17:04 01/11/20 17:15 Temperature 98.0 F Pulse Rate 59 L 61 57 L Respiratory Rate 14 Blood Pressure 152/72 H 152/57 H 147/70 H Pulse Oximetry 100 01/11/20 17:30 01/11/20 17:45 01/11/20 18:00 Temperature Pulse Rate 60 61 67 Respiratory Rate Blood Pressure 129/61 137/68 144/73 H Pulse Oximetry 01/11/20 18:15 01/11/20 18:30 01/11/20 18:45 Temperature Pulse Rate 55 L 65 67 Respiratory Rate Blood Pressure 130/64 128/69 137/72 Pulse Oximetry 01/11/20 19:00 01/11/20 19:05 01/11/20 19:10 Temperature 98 F Pulse Rate 68 66 70 Respiratory Rate 16 Blood Pressure 142/68 H 137/69 135/66 Pulse Oximetry 01/11/20 19:54 01/11/20 20:00 01/11/20 21:43 Temperature 97.6 F Pulse Rate 81 72 58 L Respiratory Rate 18 118 H Blood Pressure 159/57 H Pulse Oximetry 97 97 01/11/20 23:57 01/12/20 02:00 01/12/20 03:37 Temperature 97.7 F 98.7 F Pulse Rate 55 L 55 L 76 Respiratory Rate 20 18 Blood Pressure 112/66 122/63 Pulse Oximetry 96 98 01/12/20 06:00 01/12/20 08:00 01/12/20 08:10 Temperature 98.5 F Pulse Rate 60 68 70 Respiratory Rate 18 Blood Pressure 160/58 H Pulse Oximetry 96 01/12/20 10:00 01/12/20 12:00 01/12/20 14:00 Temperature 98 F Pulse Rate 62 61 75
[2020-01-12] MEDS: ROSUVASTATIN 5 MG TABLET PO (21:03)
[2020-01-13] VITALS (9 sets, daily range): BP systolic 123–128; BP diastolic 49–62; PULSE 57–74; RESP 16–18; TEMP 36.3–36.7; O2SAT 95–99
[2020-01-13 04:36] LABS: Hematocrit 24.9 % (42.0-52.0); Mean Corpuscular HGB Conc 32.1 g/dl (32-36); Mean Corpuscular Hemoglobin 31.7 pg (26-34); Mean Corpuscular Volume 98.8 fl (80-100); Platelet Count Result 230 k/mm3 (150-375); Red Blood Count 2.52 M/mm3 (4.6-6.20); Red Cell Distribution Width 14.3 % (11.5-14.5); White Blood Count 3.6 K/mm3 (4.5-10.0)
[2020-01-13 04:49] LABS: Albumin Level 2.7 g/dL (3.5-5.1); Blood Urea Nitrogen 47 mg/dL (9-20); Calcium 7.4 mg/dL (8.4-10.2); Carbon Dioxide 25 mmol/L (22-30); Chloride 108 mmol/L (98-107); Estimated CRCL calculation 11 ml/min; Estimated Glomerular Filt Rate 10; Glucose 93 mg/dL (75-110); Phosphorus 4.1 mg/dL (2.5-4.5); Potassium 4.3 mmol/L (3.4-5.0); Sodium 137 mmol/L (137-145)
[2020-01-13] MEDS: NITROGLYCERIN OINTMENT 1 INCH DOSE 0.5 INCH TRANSDERM (06:18)
[2020-01-13] MEDS: TAMSULOSIN HCL 0.4 MG CAPSULE PO (08:21)
[2020-01-13] MEDS: METOPROLOL TARTRATE 12.5 MG TABLET PO (08:21)
[2020-01-13] MEDS: VALACYCLOVIR HCL 500 MG TABLET PO (08:21)
[2020-01-13] MEDS: ASPIRIN 81 MG ENTERIC TABLET PO (08:22)
[2020-01-13] MEDS: TICAGRELOR 90 MG TABLET PO (08:22)
--- NOTE | 2020-01-13 10:47 | PM.PNCARD ---
Progress Note: A&P Assessment and Plan (1) Non-ST elevation myocardial infarction (NSTEMI): Code(s): I21.4 - Non-ST elevation (NSTEMI) myocardial infarction Status: Acute Assessment and Plan: Cardiac catheterization revealed multiple areas of narrowing with significant calcification, 40% left main, 50% proximal LAD, 99% mid LAD stenosis, treated with stent 2.25 x 15 mm. He needs to stay on aspirin, Brilinta, with metoprolol. Continue Statin Include multiple from cardiac standpoint to be discharged home, have a follow-up with me in 1-2 weeks (2) CKD (chronic kidney disease), stage IV: Code(s): N18.4 - Chronic kidney disease, stage 4 (severe) Status: Acute Assessment and Plan: Nephrology on board. he has temporary access fo dialysis and received session after dialysis with plan for possible another treatment (3) Multiple myeloma: Qualifiers: Multiple myeloma remission status: unspecified Qualified Code(s): C90.00 - Multiple myeloma not having achieved remission Code(s): C90.00 - Multiple myeloma not having achieved remission Status: Acute Subjective Date/time seen: 01/13/20 10:47 He feels much better today, no chest pain, no shortness breath, he feels ?good energy. Exam Const: General: alert and awake; No acute distress HENMT: Head: normal to inspection and atraumatic Ears: hearing grossly normal bilaterally Face and sinus: normal facial exam Eyes: General: appearance normal, both eyes and all related structures Pupils: Equal, round and reactive pupils present EOM: EOMs intact bilaterally Neck: Neck: normal visual inspection and no JVD Chest: Chest palpation & inspection: normal inspection of the chest Resp: Effort & Inspection: normal respiratory effort and no respiratory distress Auscultation: clear to auscultation bilaterally Cardio: Jugular venous distension: no JVD Rate: regular rate Heart sounds: S1 normal heart sound present, S2 normal heart sound present and no murmurs GI: Inspection: normal to inspection Auscultation: normal bowel sounds Skin: General skin exam: normal color Neuro: Cranial nerves: Yes Equal, round and reactive pupils present Extrem: General: normal to inspection and no clubbing, cyanosis or edema Objective Data Vital Signs Vital Signs: Vital Signs - 24 hr 01/12/20 12:00 01/12/20 14:00 01/12/20 16:00 Temperature 36.6 C 37.0 C Pulse Rate 61 75 70 Respiratory Rate 16 18 Blood Pressure 157/64 H 143/55 H Pulse Oximetry 98 94 01/12/20 18:00 01/12/20 19:56 01/12/20 20:00 Temperature 36.6 C Pulse Rate 71 68 67 Respiratory Rate 16 Blood Pressure 140/57 L Pulse Oximetry 97 01/12/20 21:04 01/12/20 22:00 01/13/20 00:00 Temperature 36.6 C Pulse Rate 68 62 63 Respiratory Rate 16 Blood Pressure 128/57 L Pulse Oximetry 96 01/13/20 02:00 01/13/20 04:00 01/13/20 06:00 Temperature 36.7 C Pulse Rate 60 58 L 70 Respiratory Rate 18 Blood Pressure 123/62 Pulse Oximetry 95 01/13/20 07:52 01/13/20 08:00 01/13/20 08:21 Temperature 36.3 C L Pulse Rate 60 74 74 Respiratory Rate 18 18 Blood Pressure 126/49 L Pulse Oximetry 98 98 Intake/Output Intake/Output: Intake & Output 01/10/20 01/11/20 01/12/20 01/13/20 23:59 23:59 23:59 23:59 Intake Total 2040 145 1900 750 Output Total 1650 1800 1725 700 Balance 390 -1655 175 50 Meds/Results Medications: Active Medications Generic Name Dose Route Start Last Admin Trade Name Freq PRN Reason Stop Dose Admin Acetaminophen 500 mg 01/11/20 11:19 Tylenol Tablet PO Q6H PRN Mild Pain (1-3) or Fever Hydrocodone Bitart/Acetaminophen 1 tab 01/08/20 00:04 01/09/20 05:01 [place] 5-325 Mg PO 1 tab Q4H PRN Administration Pain Rated 4-6 Hydrocodone Bitart/Acetaminophen 1 tab 01/11/20 11:19 [place] 7.5-325 Mg PO Q4H PRN Pain Rated 7-10 Aspirin 81 mg 01/08/20 09:00 04
--- NOTE | 2020-01-13 10:50 | PM.DS ---
DS: Diagnosis Admitting Diagnosis Admitting Diagnosis: Chest pain, unspecified Discharge Diagnosis (1) Non-ST elevation myocardial infarction (NSTEMI): Code(s): I21.4 - Non-ST elevation (NSTEMI) myocardial infarction Status: Acute Assessment and Plan: Presented 01/07 with chest pain and elevated troponin Treated with heparin aspirin Plavix beta-danuta 01/10 left heart catheterization with successful stenting of 99% mid LAD lesion, pain free since Continue on aspirin, Brilinta, metoprolol, rosuvastatin (2) CKD (chronic kidney disease), stage IV: Code(s): N18.4 - Chronic kidney disease, stage 4 (severe) Status: Acute Assessment and Plan: Dialysis was initiated after coronary angiogram on 01/10 Tolerating well (3) Hyperkalemia: Code(s): E87.5 - Hyperkalemia Status: Acute Assessment and Plan: Resolved (4) Chronic heart failure: Qualifiers: Heart failure type: diastolic Qualified Code(s): I50.32 - Chronic diastolic (congestive) heart failure Code(s): I50.9 - Heart failure, unspecified Status: Chronic Assessment and Plan: Clinically euvolemic (5) Normocytic anemia: Code(s): D64.9 - Anemia, unspecified Status: Chronic Assessment and Plan: No signs of acute blood loss. Most likely result of chronic kidney disease/multiple myeloma. 01/11 hbg 8.5 (6) Multiple myeloma: Qualifiers: Multiple myeloma remission status: unspecified Qualified Code(s): C90.00 - Multiple myeloma not having achieved remission Code(s): C90.00 - Multiple myeloma not having achieved remission Status: Acute Assessment and Plan: Clnically stable DS: Summary Hospital Course Reason for hospitalization: Chest pain due to Non ST-elevation myocardial infarction Hospital Course: Patient was admitted with chest pain on January 06. Found to have elevated troponins. He was treated with aspirin heparin beta-danuta. Underwent coronary angiography with stenting of 99% mid LAD lesion successfully. He remained pain-free afterwards. Temporary dialysis catheter was placed prior to coronary angiogram. He was dialyzed after coronary angiogram. Tolerated well. Creatinine was improving. Urine output was improving. He was to follow-up with cardiology and nephrology as an outpatient. General surgery was a cm as an outpatient for removal of his dialysis catheter. Time Spent with Patient Time attestation: Total time spent providing and/or coordinating discharge services: Exam Narrative: Exam Narrative: HEENT: EOMI, PERRL, pharyngeal mucosa pink and intact NECK: No JVD CHEST: Clear to auscultation. Normal effort. HEART: NL S1/S2, regular, no murmur ABDOMEN: BS+, soft, nontender, no mass, no bruits EXTREMITIES: No cyanosis, trace ankle edema NEUROLOGIC: CN intact and symmetric to inspection. MUSCULOSKELETAL: Tone and strength symmetric. PSYCH: Alert. Oriented to person, place, and time. DS: Data Data Completed and Pending Labs on day of discharge: Labs from last 24 hours 01/13/20 01/13/20 04:13 04:13 WBC 3.6 L RBC 2.52 L Hgb 8.0 L Hct 24.9 L MCV 98.8 MCH 31.7 MCHC 32.1 RDW 14.3 Plt Count 230 MPV 10.0 Sodium 137 Potassium 4.3 Chloride 108 H Carbon Dioxide 25 BUN 47 H Creatinine 5.40 H Estim Creat Clear Calc 11 Estimated GFR 10 L Glucose 93 Calcium 7.4 L Phosphorus 4.1 Albumin 2.7 L Discharge Plan Discharge Consulting providers: Germain Avalos ; Donte Quinonez ; Pérez Marina ; Jose Ramon Lao ; Logan Perdomo ; Don Brock ; Maria Alejandra Castillo ; Wilfrido Guthrie ; Lalito Smith V. ; Merry Moeller Discharging Clinician: Josh Choudhury Patient Disposition: Home, Self-Care Activity: no straining Diet: heart healthy, renal and low sodium Discharge Instructions: Pt ok for discharge from clinical study manager. Call office for familia
--- NOTE | 2020-01-13 12:20 | PM.PNNEP ---
Progress Note: A&P Assessment and Plan (1) CKD (chronic kidney disease), stage V: Code(s): N18.5 - Chronic kidney disease, stage 5 Status: Chronic Assessment and Plan: well established diagnosis thought to be secondary to myeloma kidney in spite of advanced disease, he has no issues with volume overload or uremia has known issues with mild metabolic acidosis and elevated potassium levels though at baseline in an effort to preserve kidney function, dialysis day before yesterday following contrast exposure - kidney function relatively stable - patient is interested in peritoneal dialysis if he needs to start chronic dialysis therapy - unfortunately, he needs to be on anticoagulation for at least 6 months given stent placement -- suspect no surgery (for PD catheter) for 6 months as well by default due to necessity of anticoagulation as his kidney function is stable, I am hoping we can hold off dialysis for another 6 months (2) Chest discomfort: Code(s): R07.89 - Other chest pain Status: Acute Assessment and Plan: s/p cardiac cahteterization s/p stenting and angioplasty Cardiology following (3) Hyperkalemia: Code(s): E87.5 - Hyperkalemia Status: Acute Assessment and Plan: potassium stable dialysis treatment has helped this (4) Normocytic anemia: Code(s): D64.9 - Anemia, unspecified Status: Chronic Assessment and Plan: due to #1 and myeloma Epogen and venofer therapy (while hospitalized) follow trend of H/H (5) Multiple myeloma: Qualifiers: Multiple myeloma remission status: unspecified Qualified Code(s): C90.00 - Multiple myeloma not having achieved remission Code(s): C90.00 - Multiple myeloma not having achieved remission Status: Acute Assessment and Plan: follows with Dr. Nicolas Not opposed to discharge from renal pespective; would attempt removal of HD catheter prior to discharge (versus removal as an outpatient in the next few weeks) and I will order outpatient labs to ensure kidney function remains stable. Subjective Date/time seen: 01/13/20 12:20 Doing reasonably well; continues to make good urine output with stable electrolytes; no further chest pain at this time either; no apparent distress voiced; noted plans for discharge. Exam Narrative: Exam Narrative: General: WD/WN male in NAD Heart: normal S1 and S2; no rub Lungs: clear to auscultation Abdomen: soft, nontender, nondistended, positive bowel sounds Extremities: no cyanosis or clubbing; no edema Skin: no rash or nodules Objective Data Vital Signs Vital Signs: Vital Signs Temp Pulse Resp BP Pulse Ox 01/13/20 11:56 36.4 C L 61 17 123/58 L 99 01/13/20 10:00 62 01/13/20 08:21 74 01/13/20 08:00 74 18 98 01/13/20 07:52 36.3 C L 60 18 126/49 L 98 01/13/20 06:00 70 01/13/20 04:00 36.7 C 58 L 18 123/62 95 01/13/20 02:00 60 01/13/20 00:00 36.6 C 63 16 128/57 L 96 01/12/20 22:00 62 01/12/20 21:04 68 01/12/20 20:00 67 01/12/20 19:56 36.6 C 68 16 140/57 L 97 01/12/20 18:00 71 Intake/Output Intake/Output: Intake & Output 01/10/20 01/11/20 01/12/20 01/13/20 23:59 23:59 23:59 23:59 Intake Total 2040 145 1900 750 Output Total 1650 1800 1725 700 Balance 390 -1655 175 50 Meds/Results Medications: Active Medications Generic Name Dose Route Start Last Admin Trade Name Freq PRN Reason Stop Dose Admin Acetaminophen 500 mg 01/11/20 11:19 Tylenol Tablet PO Q6H PRN Mild Pain (1-3) or Fever Hydrocodone Bitart/Acetaminophen 1 tab 01/08/20 00:04 01/09/20 05:01 Malone 5-325 Mg PO 1 tab Q4H PRN Administration Pain Rated 4-6 Hydrocodone Bitart/Acetaminophen 1 tab 01/11/20 11:19 Malone 7.5-325 Mg PO Q4H PRN Pain Rated 7-10 Aspirin 81 mg 01/08/20 09:00
== END 2020-01-13 13:05 | disposition home or self-care (01) | DRG 247 ==
LOC: ANHED 22:22 → ANHIMU 01-08 00:26
PROVIDERS: Hospitalist; Internal Medicine Nephrology; Specialist; Surgery; Admitting Provider Family Medicine; Emergency Provider Emergency Medicine; PCP Family Medicine; Visit Provider Internal Medicine
PROC: 0JH60XZ Insertion of Tunneled Vascular Access Device into Chest Subcutaneous Tissue and Fascia, Open Approach (ICD-10-PCS; CPT 36908; principal; 2020-01-11 09:00)
PROC: 4A023N7 Measurement of Cardiac Sampling and Pressure, Left Heart, Percutaneous Approach (ICD-10-PCS; CPT 93452; principal; 2020-01-11 12:30)
PROC: 027034Z Dilation of Coronary Artery, One Artery with Drug-eluting Intraluminal Device, Percutaneous Approach (ICD-10-PCS; 2020-01-11 12:30)
PROC: 027034Z Dilation of Coronary Artery, One Artery with Drug-eluting Intraluminal Device, Percutaneous Approach (ICD-10-PCS; 2020-01-11 12:30)
DX: I21.4 Non-ST elevation (NSTEMI) myocardial infarction (principal); N18.5 Chronic kidney disease, stage 5; I50.32 Chronic diastolic (congestive) heart failure; C90.00 Multiple myeloma not having achieved remission; N17.9 Acute kidney failure, unspecified; E87.2 Acidosis; E87.5 Hyperkalemia; D63.0 Anemia in neoplastic disease; D63.1 Anemia in chronic kidney disease; Z99.2 Dependence on renal dialysis; Z96.619 Presence of unspecified artificial shoulder joint
CPT/HCPCS: 36415; 71046; 77001; 80053; 80061; 80069; 80074; 81001; 82607; 82746; 83540; 83550; 83880; 84484; 85025; 85027; 85610; 85730; 86704; 86706; 86803; 86850; 86870; 86880; 86900; 86901; 86902; 86970; 87340; 93005; 93306; 93458; 99285; A9270; C1725; C1750; C1760; C1769; C1874; C1887; C1894; C9600; G0269; G0378; J0583; J0690; J1644; J1756; J2250; J2704; J3010; J7030; J7040; J8540; Q4081

== ENCOUNTER 2020-04-29 05:42 | Inpatient (IN) | payer MEDICARE, BC, SELFPAY ==
[2020-04-29] VITALS (8 sets, daily range): BP systolic 125–144; BP diastolic 40–69; PULSE 54–70; RESP 11–20; TEMP 36.4–36.6; O2SAT 94–100; BMI 20.3
--- NOTE | ~2020-04-29 | US_ITS ---
EXAMINATION: US renal BI DATE: 04/29/2020 15:28 INDICATION: Decreased kidney function. TECHNIQUE: Multiple ultrasound grayscale images of the kidneys were obtained. COMPARISON: Kidney ultrasound 09/27/2008 FINDINGS: The right kidney measures 8.5 x 3.4 x 4.4 cm. The left kidney measures 10.4 x 3.5 x 3.9 cm. There is cortical thinning of the kidneys. The kidneys demonstrate normal parenchymal echogenicity. There are cysts in the kidneys measuring up to 3.0 cm on the right and 3.3 cm on the left. There is no hydronep hrosis. The bladder is normal. IMPRESSION: 1. Mild atrophy of the kidneys. No hydronephrosis. Reviewed, dictated and finalized at location A.
--- NOTE | ~2020-04-29 | XR_ITS ---
EXAMINATION: XR chest 1V portable EXAM DATE: 04/29/2020 07:03 INDICATION: Shortness of breath. TECHNIQUE: Portable AP frontal chest x-ray was obtained. Comparison is made to prior examination from 01/11/2020. FINDINGS: Again there are are biapical opacities, most likely scarring. No confluent consolidation, p neumothorax or pleural effusion suspected. Cardiomediastinal silhouette is normal. Moderate chronic a ppearing hyperinflation. Previously seen right-sided dialysis catheter has been removed. IMPRESSION: 1. Biapical opacities, probably scarring. 2. Hyperinflation. Reviewed, dictated and finalized at location A.
--- NOTE | 2020-04-29 06:04 | ECG_ITS ---
Measurements Intervals [place] Rate: 60 P: 43 NC: 129 QRS: -33 QRSD: 114 T: 69 QT: 417 QTc: 417 Interpretive Statements SINUS RHYTHM FREQUENT VENTRICULAR PREMATURE COMPLEXES LEFT AXIS DEVIATION INTRAVENTRICULAR CONDUCTION DELAY MINIMAL Q WAVES- HIGH LATERAL LEADS BORDERLINE ST-T WAVE ABNORMALITY- HIGH LATERAL LEADS BASELINE ARTIFACT- I, II, III, AVR, AVL, AVF, V4-V6 ABNORMAL ECG Electronically Signed On 04-29-2020 7:03:38 CDT by Jose Ramon Lao D.O.
--- NOTE | 2020-04-29 06:41 | ED.SOB ---
HPI - SOB/Dyspnea General Chief Complaint: Shortness of Breath/Dyspnea <Dawn Love MD - Last Filed: 04/30/20 04:38> Stated Complaint: sob <Dawn Love MD - Last Filed: 04/30/20 04:38> Time Seen by Provider: 04/29/20 06:02 <Dawn Love MD - Last Filed: 04/30/20 04:38> Source: patient and family <Dawn Love MD - Last Filed: 04/30/20 04:38> Mode of arrival: ambulatory <Dawn Love MD - Last Filed: 04/30/20 04:38> Limitations: no limitations <Dwan Love MD - Last Filed: 04/30/20 04:38> History of Present Illness HPI Narrative: This patient is a 80 year old male who presents for evaluation of shortness of breath. PAtient states over the past 1.5 weeks he has been having sob and fatigue with exertion. He states when he walks 1/2 block he feels like he needs to stop. He denies sob at rest. He also denies chest pain with exertion. He denies fever, cough, nausea, vomiting. He was placed on a diuretic 1 week ago for edema but he states that has resolved since they increased his dose on Saturday. His teacher aide is Dr. Guthrie, and he reports negative stress test this month. His oncologist is Dr. Nicolas for multiple myeloma. His banking center manager is Dr. Moeller and he has an appointment on Saturday. <Dawn Love MD - Last Filed: 04/30/20 04:38> MD elicited complaint: shortness of breath <Dawn Love MD - Last Filed: 04/30/20 04:38> Related Data Home Medications: Home Medications Medication Instructions Recorded Confirmed Darzalex 20 mg IV MONTHLY 01/07/20 04/29/20 Pomalyst 4 mg PO DAILY 01/07/20 04/29/20 tamsulosin 0.4 mg PO DAILY 01/07/20 04/29/20 valacyclovir 500 mg PO DAILY 01/07/20 04/29/20 dexamethasone 4 mg PO FR 01/08/20 04/29/20 calcium carbonate-vitamin D3 1 tablet PO DAILY 04/29/20 04/29/20 [Caltrate 600 plus D] furosemide 20 mg PO BID 04/29/20 04/29/20 <Dawn Love MD - Last Filed: 04/30/20 04:38> Allergies/Adverse Reactions: Allergies Allergy/AdvReac Type Severity Reaction Status Date / Time codeine AdvReac Confusion Verified 04/29/20 05:58 <Dawn Love MD - Last Filed: 04/30/20 04:38> Review of Systems Review of Systems: All systems reviewed & are unremarkable except as noted in HPI and below <Dawn Love MD - Last Filed: 04/30/20 04:38> Constitutional: Constitutional: Denies chills, Reports fatigue and Denies fever(s) <Dawn Love MD - Last Filed: 04/30/20 04:38> Cardiovascular: Cardiovascular: Denies chest pain <Dawn Loev MD - Last Filed: 04/30/20 04:38> Respiratory: Respiratory: Denies chest congestion, Denies cough, Reports dyspnea and Denies wheezing <Dawn Love MD - Last Filed: 04/30/20 04:38> Gastrointestinal: Gastrointestinal: Denies abdominal pain, Denies nausea and Denies vomiting <Dawn Love MD - Last Filed: 04/30/20 04:38> FOR[facility] Past Medical History Medical History: Medical History (Updated 04/30/20 @ 04:38 by Dawn Love MD) BPH (benign prostatic hyperplasia) Cancer CHF (congestive heart failure) His echo was performed on 01/08/2020. EF was 65-70%. CKD (chronic kidney disease), stage IV Multiple myeloma He had been in remission at 1 time but is not active. The patient takes chemotherapy. Non-ST elevation myocardial infarction (NSTEMI) Shingles now improved and the medication. Vascular dialysis catheter in place <Dawn Love MD - Last Filed: 04/30/20 04:38> Surgical History Surgical History: Surgical History (Updated 04/29/20 @ 16:28 by Melissa Gilman NP) History of arthroscopy of shoulder both shoulders Previous back surgery Stented coronary artery lad x1 <Dawn Love MD - Last Filed: 04/30/20 04:38> Family History Family History: Family History (Updated 04/29/20 @ 16:29 by Melissa Gilman NP) Mother Diabetes mellitus Acute myocardial infarction Fath
[2020-04-29 06:50] LABS: Hematocrit 26.3 % (42.0-52.0); Hemoglobin 8.9 g/dL (14.0-18.0); Immature Granulocyte Absolute 0.04 K/mm3 (0.00-0.031); Immature Granulocyte Percent A 1.1 % (0-0.5); Lymphocytes Absolute Auto 0.92 K/mm3 (0.9-3.2); Lymphocytes Percent Auto 24.3 % (18.3-44.2); Mean Corpuscular HGB Conc 33.8 g/dl (32-36); Mean Corpuscular Hemoglobin 32.8 pg (26-34); Mean Platelet Volume 10.9 fl (7.4-10.4); Monocytes Absolute Auto 0.3 K/mm3 (0.1-0.6); Monocytes Percent Auto 8.7 % (2.6-8.5); Neutrophils Absolute Auto 2.5 K/mm3 (1.3-6.7); Neutrophils Percent Auto 65.9 % (45.5-73.1); Platelet Count Result 151 k/mm3 (150-375); Red Blood Count 2.71 M/mm3 (4.6-6.20); Red Cell Distribution Width 14.2 % (11.5-14.5); White Blood Count 3.8 K/mm3 (4.5-10.0)
[2020-04-29 06:58] LABS: Alveolar/Arterial O2 Gradient 2.9 mmHg; Base Excess ABG -9.9 mEq/l (+/-2.0); Carboxyhemoglobin 0.3 % THb (0-2.0); Fractional Inspired Oxygen 21 %; HCO3 ABG 12.9 mEq/l (22.0-26.0); Methemoglobin ABG 0.3 %THb (0-1.5); Oxygen Content ABG 12.5 %vol (16.0-22.0); Oxygen Saturation ABG 98.6 % (95.0-100.0); Oxyhemoglobin 96.8 % THb (90.0-100.0); PO2 ABG 122.8 mmHg (80.0-100.0); PO2 FiO2 Ratio Arterial Blood 5.85 %; Reduced Hemoglobin 2.6 %THb (0-5.0); pH ABG 7.426 (7.350-7.450)
[2020-04-29 06:58] LABS: INR 1.1
[2020-04-29 06:59] LABS: Partial Thromboplastin Time 23.2 SECONDS (22.3-36.8)
[2020-04-29 07:00] LABS: Alanine Aminotransferase 44 U/L (4-50); Albumin Level 4.2 g/dL (3.5-5.1); Alkaline Phosphatase 60 U/L (38-126); Anion Gap 22.8 mmol/L (7-16); Aspartate Amino Transferase 20 U/L (17-59); Bilirubin,Total 0.6 mg/dL (0.2-1.3); Blood Urea Nitrogen 111 mg/dL (9-20); Calcium 7.7 mg/dL (8.4-10.2); Carbon Dioxide 17 mmol/L (22-30); Chloride 97 mmol/L (98-107); Estimated CRCL calculation 7 ml/min; Estimated Glomerular Filt Rate 6; Glucose 225 mg/dL (75-110); Potassium 3.8 mmol/L (3.4-5.0); Sodium 133 mmol/L (137-145)
[2020-04-29 07:00] LABS: Device ROOM AIR; Modified Allen's Test Pass; PCO2 ABG 20.1 mmHg (35.0-45.0); Site Drawn RIGHT RADIAL
[2020-04-29 07:09] LABS: NT Pro B Type Natriuretic Pept 4250 PG/ML (5-100)
--- NOTE | 2020-04-29 07:18 | PC.NURSE ---
Assumed care of pt, pt is alert and upright on stretcher, at bedside. Discussed POC. VSS.
[2020-04-29 07:26] LABS: Add Urine Microscopic? YES; Appearance Urine Clear (Clear); Bilirubin Urine Negative (Negative); Blood Urine 1+ (Negative); Color Urine Straw (Yellow); Glucose Urine UA 1+ mg/dL (Negative); Ketones Urine Negative (Negative); Leukocyte Esterase Ur Negative LEU/UL (Negative); Mucus Urine Rare /lpf; Nitrate Urine Negative (Negative); Protein Urine 1+ mg/dL (Negative); RBC Urine 0-2 /hpf (0-2); Specific Grav Ur 1.012 (1.001-1.035); Squamous Epithelial Cell Urine Rare /hpf (Few); Urobilinogen Urine Negative mg/dL (<2.0); WBC Urine 0-3 /hpf
--- NOTE | 2020-04-29 09:10 | ADMGEN ---
This patient, Jackson Boyer, was admitted to [facility] Surg Room 323-01. Patient/family oriented to hospital policies and general routines including ID bracelet, bed and alarms, visiting hours, pain management, procedures, bathroom and other care routines, personal items, smoking policy, room service/diet, and visiting hours. Valuables list has been completed. Information on how to activate the Rapid Response Team has been discussed. Patient/Family are encouraged to report perceived risks to care and to ask questions if they do not understand what they are told or what they should do.
[2020-04-29] MEDS: SODIUM CHLORIDE 0.9% IV 1,000 ML 75 ML IV CONT (12:06)
--- NOTE | 2020-04-29 14:35 | PM.CNNEP ---
Assessment and Plan Assessment and plan (1) Acute on chronic renal failure: Qualifiers: Acute renal failure type: unspecified Chronic kidney disease stage: stage 4 (severe) Qualified Code(s): N17.9 - Acute kidney failure, unspecified; N18.4 - Chronic kidney disease, stage 4 (severe) Code(s): N17.9 - Acute kidney failure, unspecified; N18.9 - Chronic kidney disease, unspecified Status: Acute Assessment and Plan: The patient has chronic kidney disease. This is likely on the basis of hypertension and multiple myeloma. Evaluation for that is unavailable. His creatinine has been relatively stable over the last few months. He has not had any uremic symptoms. And there was some hope that with treatment of the myeloma that his kidney function might improve. The patient has become generally weak over the last couple of weeks. It is possible that his GFR just worsened not why he became weak. Along with that he swelled and so got some diuretics. So the diuretics may have made his creatinine worse as well. This hard to know how much which affect had on this rise in creatinine from 5-8. I suspect that he may be very close to dialysis. Because his creatinine was so stable for so long I think it would be reasonable to try some IV fluids to see if that will help. He understands that he may swell a little bit but would rather swell a little bit then be on dialysis. I will also order an ultrasound , urine electrolytes, and urine eosinophils to make sure that he does not have any other reversible causes. long discussion with the patient and his . (2) Multiple myeloma: Qualifiers: Multiple myeloma remission status: unspecified Qualified Code(s): C90.00 - Multiple myeloma not having achieved remission Code(s): C90.00 - Multiple myeloma not having achieved remission Status: Acute Assessment and Plan: Patient is getting medications for this (3) Non-ST elevation myocardial infarction (NSTEMI): Code(s): I21.4 - Non-ST elevation (NSTEMI) myocardial infarction Status: Acute Assessment and Plan: he is not having any chest pain (4) CHF (congestive heart failure): Code(s): I50.9 - Heart failure, unspecified Status: Acute Assessment and Plan: his volume status looks good right now. We will watch him closely as we hydrate. History of Present Illness Reason for Consult Consult date: 04/29/20 Chief Complaint Chief complaint: Acute on chronic renal failure History of Present Illness Narrative: Jackson is a very pleasant gentleman who has chronic kidney disease stage 5 with a baseline creatinine at around 5. He also has multiple myeloma. He is getting treatment by Dr. Nicolas until about 3 months ago this was held. In the beginning of March it was restarted once again. He also has hypertension, hyperlipidemia, coronary disease status post NSTEMI, congestive heart failure. The patient has been doing fairly well considering his poor kidney function. He has been seeing Dr. Moeller in the office. Because his creatinine is so high he went for education about dialysis and chose to do peritoneal dialysis. Because he has had no symptoms he did not start on dialysis yet. In the last couple of weeks the patient has become gradually weaker. He has trouble with fatigue whenever he has any exertion. He is not having any chest pain. And it was not shortness of breath either. About a week ago the patient developed some swelling in his legs and his hands. He called Dr. Moeller who put him on some diuretics. This week the patient's weakness has gotten even worse so they called the office. We will arrange for him to have some more blood work and come see Dr. Moeller however his weakness screw worse yesterday so he came to the emergency room. In the ER he was found to have a creatinine of 8. He was given some IV fluids and admitted. Patient denies any
--- NOTE | 2020-04-29 16:14 | PM.IMHP ---
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 He also has a history of multiple myeloma which he has been receiving treatment. He received treatment in the past and was in remission but now was requiring treatment again. He sees Dr. Nicolas. in December where the patient was found to have a non STEMI. He received 1 cardiac stent at that time. He had 99% mid LAD lesion. He was continued on aspirin, Brilinta metoprolol and rosuvastatin. The patient has been complaining of increasing shortness of breath. The patient has been more short of breath over the last week and half and very fatigued with exertion. He denied any fever or chills or cough. no nausea And no vomiting. his cover inspector is Dr. nery Wang and the patient reported that he had a negative stress test this past month. He typically sees Dr. faby holcomb for his chronic renal failure and has an appointment with him this next Saturday. The patient recently saw his oncologist and is on monthly IV chemotherapy. His next appointment with the oncologist is in approximately [address] Quinonez has been consulted today and did talk with the patient. The patient may be leading towards hemodialysis in the patient is aware of this. However nephrology is looking for a reversible cause. It is felt that his renal failure is secondary to the multiple myeloma. The patient also has chronic anemia and he is at his baseline today. Arterial blood gases are within normal limits. PH is 7.426. His CO2 slough at 20.1. He is not chronically on oxygen. He is currently on room air. EKG was interpreted as normal rate sinus rhythm PVCs and left axis. Dr. Quinonez did order a renal ultrasound on the patient was read as mild atrophy of the kidneys no hydronephrosis. Chest x-ray was Read as biapical opacities, probably scarring. Hyperinflation. Patient's creatinine was 8.2 today his baseline is somewhere between 4.6 and 6.9. Patient's estimated GFR is 60 today is typically 8-10. His glucose was noted to be 225. The patient also had increased swelling to his lower extremity and was placed on diuretic 1 week ago for the edema which has resolved. However it is felt that this made his renal function worse. Patient was started on IV fluids in ED at a slow rate of 75 mL/hour. According to Dr. cummings's note he is agreeable with the gentle hydration. I have spent approximately 1 hour with this patient. Date of service 04/29/2020. Review of Systems Review of Systems: All systems reviewed & are unremarkable except as noted in HPI and below Constitutional: Constitutional: Reports as per HPI and Reports no additional constitutional complaints Eyes: Eyes: Reports as per HPI and Reports no additional eye complaints ENT: Reports system reviewed and no additional complaints, except as documented and Reports Normal hearing present Cardiovascular: Cardiovascular: Reports no additional cardiovascular complaints Respiratory: Respiratory: Reports no additional respiratory complaints and Reports no additional respiratory complaints Gastrointestinal: Gastrointestinal: Reports as per HPI and Reports no additional gastrointestinal complaints Musculoskeletal: Musculoskeletal: Reports no additional musculoskeletal complaints Integumentary/Breasts: Skin/Breast: Reports system reviewed and no additional complaints, except as docu and Reports as per HPI Neurologic: Reports system reviewed and no additional complaints, except as documented, Reports as per HPI and Reports Normal hearing present Psychiatric: Psychiatric: Reports no additional psychiatric complaints and Reports as per HPI Endocrine: Endocrine: Reports no additional endocrine complaints Hematologic/Lymphatic: Hematologic/Lymphatic: Reports no additional hematologic/lymphatic complaints Anthony
[2020-04-29 19:10] LABS: Total Protein Urine Random 42 mg/dL
[2020-04-29 19:11] LABS: Sodium Urine Random 63 meq/L
[2020-04-29] MEDS: TICAGRELOR 90 MG TABLET PO (20:49)
[2020-04-29] MEDS: ROSUVASTATIN 5 MG TABLET PO (20:49)
[2020-04-29] MEDS: METOPROLOL TARTRATE 12.5 MG TABLET PO (20:49)
--- NOTE | 2020-04-30 05:17 | PHAR ---
HOME MED: (Pomalidomide [Pomalyst] 4 MG) VERIFIED BY PHARMACY
[2020-04-30 06:00] VITALS: BP 138/46; PULSE 57; RESP 18; TEMP 36.2; O2SAT 100
[2020-04-30 06:24] LABS: Eosinophils Percent Auto 1.7 % (0-4.4); Hematocrit 22.4 % (42.0-52.0); Hemoglobin 7.8 g/dL (14.0-18.0); Immature Granulocyte Absolute 0.03 K/mm3 (0.00-0.031); Immature Granulocyte Percent A 1.7 % (0-0.5); Lymphocytes Absolute Auto 0.51 K/mm3 (0.9-3.2); Lymphocytes Percent Auto 29.5 % (18.3-44.2); Mean Corpuscular HGB Conc 34.8 g/dl (32-36); Mean Corpuscular Hemoglobin 33.3 pg (26-34); Mean Corpuscular Volume 95.7 fl (80-100); Mean Platelet Volume 10.2 fl (7.4-10.4); Monocytes Absolute Auto 0.3 K/mm3 (0.1-0.6); Monocytes Percent Auto 15.6 % (2.6-8.5); Neutrophils Absolute Auto 0.9 K/mm3 (1.3-6.7); Neutrophils Percent Auto 51.5 % (45.5-73.1); Platelet Count Result 110 k/mm3 (150-375); Red Blood Count 2.34 M/mm3 (4.6-6.20); Red Cell Distribution Width 13.9 % (11.5-14.5)
[2020-04-30 06:36] LABS: White Blood Count 1.7 K/mm3 (4.5-10.0)
[2020-04-30 06:37] LABS: Alanine Aminotransferase 33 U/L (4-50); Albumin Level 3.5 g/dL (3.5-5.1); Alkaline Phosphatase 44 U/L (38-126); Anion Gap 19.6 mmol/L (7-16); Aspartate Amino Transferase 17 U/L (17-59); Bilirubin,Total 0.4 mg/dL (0.2-1.3); Blood Urea Nitrogen 116 mg/dL (9-20); Calcium 7.4 mg/dL (8.4-10.2); Carbon Dioxide 18 mmol/L (22-30); Chloride 103 mmol/L (98-107); Estimated CRCL calculation 7 ml/min; Estimated Glomerular Filt Rate 7; Glucose 98 mg/dL (75-110); Potassium 3.6 mmol/L (3.4-5.0); Sodium 137 mmol/L (137-145)
[2020-04-30 08:31] VITALS: PULSE 75
[2020-04-30] MEDS: METOPROLOL TARTRATE 12.5 MG TABLET PO ×2 (08:31→20:55)
[2020-04-30] MEDS: TAMSULOSIN HCL 0.4 MG CAPSULE PO (08:32)
[2020-04-30] MEDS: ASPIRIN 81 MG ENTERIC TABLET PO (08:32)
[2020-04-30] MEDS: TICAGRELOR 90 MG TABLET PO ×2 (08:32→20:55)
[2020-04-30] MEDS: valACYclovir HCL 500 MG TABLET PO (08:32)
--- NOTE | 2020-04-30 09:00 | PM.PNNEP ---
Progress Note: A&P Assessment and Plan (1) Acute on chronic renal failure: Code(s): N17.9 - Acute kidney failure, unspecified; N18.9 - Chronic kidney disease, unspecified Status: Acute Assessment and Plan: The patient has chronic kidney disease. This is likely on the basis of hypertension and multiple myeloma. He has a superimposed acute on chronic process. He has been on diuretics recently. He is probably pre renal. At this point will continue IV fluids. We will see how much better his kidneys get. If he improves enough to go home without dialysis and we can get dialysis access placed as an outpatient. He was considering peritoneal dialysis. Then when he became weak he changed his mind but I think that if we can get him better he would be a good candidate for PD. Will continue to work with him on this. Long discussion with the patient. (2) Multiple myeloma: Code(s): C90.00 - Multiple myeloma not having achieved remission Status: Chronic Assessment and Plan: Patient is getting medications for this WBC a little bit low from this. (3) Non-ST elevation myocardial infarction (NSTEMI): Code(s): I21.4 - Non-ST elevation (NSTEMI) myocardial infarction Status: Acute Assessment and Plan: he is not having any chest pain (4) CHF (congestive heart failure): Code(s): I50.9 - Heart failure, unspecified Status: Chronic Assessment and Plan: his volume status looks good right now. We will watch him closely as we hydrate. Subjective Date/time seen: 04/30/20 09:00 Interval history: The patient is feeling a little bit better. He is a little bit less weak he thinks. He has not been up in a chair. He is eating well. No shortness of breath or swelling. Review of Systems Cardiovascular: Cardiovascular: Reports no additional cardiovascular complaints Respiratory: Respiratory: Reports no additional respiratory complaints Gastrointestinal: Gastrointestinal: Reports no additional gastrointestinal complaints Genitourinary: Genitourinary: Reports no additional male genitourinary complaints Exam Narrative: Exam Narrative: WDWN in NAD skin no rash head ncat lungs clear cor reg no rub abd BS+ nontender and soft ext no edema. Objective Data Vital Signs Vital Signs: Vital Signs - 24 hr 04/29/20 14:00 04/29/20 20:49 04/29/20 22:00 Temperature 36.6 C 36.4 C Pulse Rate 59 L 60 61 Respiratory Rate 18 18 Blood Pressure 137/40 L 133/59 L Pulse Oximetry 94 99 04/30/20 06:00 04/30/20 08:31 Temperature 36.2 C L Pulse Rate 57 L 75 Respiratory Rate 18 Blood Pressure 138/46 L Pulse Oximetry 100 Intake/Output Intake/Output: Intake & Output 04/27/20 04/28/20 04/29/20 04/30/20 23:59 23:59 23:59 23:59 Intake Total 1030 1250 Output Total 300 1900 Balance 730 -650 Meds/Results Medications: Active Medications Generic Name Dose Route Start Last Admin Trade Name Freq PRN Reason Stop Dose Admin Aspirin 81 mg 04/30/20 09:00 04/30/20 08:32 Aspirin Ec PO 81 mg QAM VIKAS Administration Calcium Carbonate 500 mg 04/30/20 09:00 04/30/20 08:31 Os-Edward 500 +D Tablet PO 05/30/20 09:01 500 mg DAILY VIKAS Administration Dexamethasone 4 mg 05/06/20 09:00 Dexamethasone Po PO Fr@0900 VIKAS Sodium Chloride 1,000 mls @ 75 mls/hr 04/29/20 08:05 04/30/20 00:00 Normal Saline Iv IV CONT 75 mls/hr .[id number] VIKAS Administration Metoprolol Tartrate 12.5 mg 04/29/20 21:00 04/30/20 08:31 Lopressor PO 12.5 mg Q12HR VIKAS Administration Nitroglycerin 0.4 mg 04/29/20 16:41 Nitrostat Subl 0.4 Mg (1/150) SUBLINGUAL Q5MIN PRN Chest Pain Non-Formulary Medication 20 mg 05/29/20 09:00 Daratumumab IVPB 06/28/20 09:01 MONTHLY VIKAS Rosuvastatin Calcium 5 mg 04/29/20 21:00 04/29/20 20:49 Crestor PO 5 mg HS VIKAS Administrati
--- NOTE | 2020-04-30 11:49 | PM.IMPN ---
Progress Note: A&P Assessment and Plan (1) Acute on chronic renal failure: Qualifiers: Acute renal failure type: unspecified Chronic kidney disease stage: stage 5, not on chronic dialysis Qualified Code(s): N17.9 - Acute kidney failure, unspecified; N18.5 - Chronic kidney disease, stage 5 Code(s): N17.9 - Acute kidney failure, unspecified; N18.9 - Chronic kidney disease, unspecified Status: Acute Assessment and Plan: likely due to recent diuretic use creatinine 8.2 admission, 7.8 on 04/30 continue to monitor with gentle hydration (2) CKD (chronic kidney disease), stage V: Code(s): N18.5 - Chronic kidney disease, stage 5 Status: Chronic Assessment and Plan: (3) Normocytic anemia: Code(s): D64.9 - Anemia, unspecified Status: Chronic Assessment and Plan: due to kidney disease and myeloma (4) Chronic heart failure: Qualifiers: Heart failure type: diastolic Qualified Code(s): I50.32 - Chronic diastolic (congestive) heart failure Code(s): I50.9 - Heart failure, unspecified Status: Chronic Assessment and Plan: clinically stable (5) Multiple myeloma: Qualifiers: Multiple myeloma remission status: not in remission Qualified Code(s): C90.00 - Multiple myeloma not having achieved remission Code(s): C90.00 - Multiple myeloma not having achieved remission Status: Chronic Assessment and Plan: last chemotherapy about 4 weeks ago (6) Neutropenia: Qualifiers: Neutropenia type: unspecified Qualified Code(s): D70.9 - Neutropenia, unspecified Code(s): D70.9 - Neutropenia, unspecified Status: Acute Assessment and Plan: likely due to multiple myeloma with recent therapy consider addition of Neupogen if not improving Subjective Date/time seen: 04/30/20 11:49 Interval history: Admitted for generalized weakness, sob. Started furosemide one week [employer] [employer]. Last chemo for MM about 03/30. Feels better today. states he looks more like himself . Denied pain or swelling or sob. Tolerated PT/OT well. Review of Systems Review of Systems: All systems reviewed & are unremarkable except as noted in HPI and below Exam Narrative: Exam Narrative: HEENT: EOMI, PERRL, sclerae nonicteric, pharyngeal mucosa pink and intact NECK: No JVD, adenopathy, or thyromegaly CHEST: Clear to auscultation. Normal effort. HEART: NL S1/S2, regular, no murmur ABDOMEN: BS+, soft, nontender, no mass, no bruits EXTREMITIES: No cyanosis, edema, or clubbing NEUROLOGIC: CN intact and symmetric to inspection. MUSCULOSKELETAL: Tone and strength symmetric. PSYCH: Alert. Oriented to person, place, and time. Objective Data Vital Signs Vital Signs: Vital Signs - 24 hr 04/29/20 14:00 04/29/20 20:49 04/29/20 22:00 Temperature 97.8 F 97.6 F Pulse Rate 59 L 60 61 Respiratory Rate 18 18 Blood Pressure 137/40 L 133/59 L Pulse Oximetry 94 99 04/30/20 06:00 04/30/20 08:31 Temperature 97.1 F L Pulse Rate 57 L 75 Respiratory Rate 18 Blood Pressure 138/46 L Pulse Oximetry 100 Intake/Output Intake/Output: Intake & Output 04/27/20 04/28/20 04/29/20 04/30/20 23:59 23:59 23:59 23:59 Intake Total 1030 1730 Output Total 300 1900 Balance 730 -170 Meds/Results Medications: Active Medications Generic Name Dose Route Start Last Admin Trade Name Freq PRN Reason Stop Dose Admin Aspirin 81 mg 04/30/20 09:00 04/30/20 08:32 Aspirin Ec PO 81 mg QAM VIKAS Administration Calcium Carbonate 500 mg 04/30/20 09:00 04/30/20 08:31 Os-Edward 500 +D Tablet PO 05/30/20 09:01 500 mg DAILY VIKAS Administration Dexamethasone 4 mg 05/06/20 09:00 Dexamethasone Po PO Fr@0900 VIKAS Sodium Chloride 1,000 mls @ 75 mls/hr 04/29/20 08:05 04/30/20 00:00 Normal Saline Iv IV CONT 75 mls/hr .[id number] VIKAS Administration Metoprolol Tartrate 12.5 mg
[2020-04-30 14:00] VITALS: BP 126/64; PULSE 69; RESP 16; TEMP 36.6; O2SAT 97
[2020-04-30] MEDS: SODIUM CHLORIDE 0.9% IV 1,000 ML 75 ML IV CONT ×2 (17:59)
[2020-04-30 20:55] VITALS: PULSE 64
[2020-04-30] MEDS: HOME MEDICATION 1 EACH PO (20:55)
[2020-04-30] MEDS: ROSUVASTATIN 5 MG TABLET PO (20:55)
[2020-04-30 22:00] VITALS: BP 121/65; PULSE 70; RESP 18; TEMP 36; O2SAT 99
[2020-05-01 06:00] VITALS: BP 147/56; PULSE 65; RESP 16; TEMP 36.4; O2SAT 99
[2020-05-01] MEDS: SODIUM CHLORIDE 0.9% IV 1,000 ML 75 ML IV CONT ×2 (06:06→16:55)
[2020-05-01 06:20] LABS: Eosinophils Absolute Auto 0.1 K/mm3 (0-0.3); Eosinophils Percent Auto 3.6 % (0-4.4); Hemoglobin 7.5 g/dL (14.0-18.0); Immature Granulocyte Absolute 0.05 K/mm3 (0.00-0.031); Immature Granulocyte Percent A 3.6 % (0-0.5); Lymphocytes Absolute Auto 0.41 K/mm3 (0.9-3.2); Lymphocytes Percent Auto 29.5 % (18.3-44.2); Mean Corpuscular HGB Conc 34.1 g/dl (32-36); Mean Corpuscular Hemoglobin 33.3 pg (26-34); Mean Corpuscular Volume 97.8 fl (80-100); Mean Platelet Volume 10.4 fl (7.4-10.4); Monocytes Absolute Auto 0.2 K/mm3 (0.1-0.6); Monocytes Percent Auto 16.5 % (2.6-8.5); Neutrophils Absolute Auto 0.7 K/mm3 (1.3-6.7); Neutrophils Percent Auto 46.8 % (45.5-73.1); Platelet Count Result 108 k/mm3 (150-375); Red Blood Count 2.25 M/mm3 (4.6-6.20); Red Cell Distribution Width 14.2 % (11.5-14.5)
[2020-05-01 06:40] LABS: Albumin Level 3.1 g/dL (3.5-5.1); Anion Gap 14.5 mmol/L (7-16); Blood Urea Nitrogen 106 mg/dL (9-20); Calcium 7.3 mg/dL (8.4-10.2); Carbon Dioxide 19 mmol/L (22-30); Chloride 107 mmol/L (98-107); Estimated CRCL calculation 8 ml/min; Estimated Glomerular Filt Rate 8; Glucose 88 mg/dL (75-110); Phosphorus 7.1 mg/dL (2.5-4.5); Potassium 3.5 mmol/L (3.4-5.0); Sodium 137 mmol/L (137-145)
[2020-05-01 07:02] LABS: White Blood Count 1.4 K/mm3 (4.5-10.0)
[2020-05-01 07:03] LABS: Hypochromasia 1+ (NORMAL); Microcytosis 2+ (NORMAL); Platelet Estimate Adequate (Adequate)
[2020-05-01 07:04] LABS: Ovalocytes 2+ (NORMAL)
[2020-05-01 08:00] VITALS: PULSE 65; RESP 16; O2SAT 99
[2020-05-01] MEDS: METOPROLOL TARTRATE 12.5 MG TABLET PO ×2 (09:04→21:05)
[2020-05-01] MEDS: TICAGRELOR 90 MG TABLET PO ×2 (09:04→21:05)
[2020-05-01] MEDS: TAMSULOSIN HCL 0.4 MG CAPSULE PO (09:04)
[2020-05-01] MEDS: valACYclovir HCL 500 MG TABLET PO (09:05)
[2020-05-01] MEDS: ASPIRIN 81 MG ENTERIC TABLET PO (09:05)
--- NOTE | 2020-05-01 09:52 | PM.PNNEP ---
Progress Note: A&P Assessment and Plan (1) Acute on chronic renal failure: Qualifiers: Acute renal failure type: unspecified Chronic kidney disease stage: stage 5, not on chronic dialysis Qualified Code(s): N17.9 - Acute kidney failure, unspecified; N18.5 - Chronic kidney disease, stage 5 Code(s): N17.9 - Acute kidney failure, unspecified; N18.9 - Chronic kidney disease, unspecified Status: Acute Assessment and Plan: The patient has chronic kidney disease. This is likely on the basis of hypertension and multiple myeloma. He has a superimposed acute on chronic process. He has been on diuretics recently. He is probably pre renal. his creatinine is improving with the IV fluids he is also feeling stronger. Will go 1 more day on the IV fluids and he probably can be discharged to follow up with Dr. Moeller to plan dialysis. He is starting to lean back toward peritoneal dialysis again. (2) Multiple myeloma: Qualifiers: Multiple myeloma remission status: not in remission Qualified Code(s): C90.00 - Multiple myeloma not having achieved remission Code(s): C90.00 - Multiple myeloma not having achieved remission Status: Chronic Assessment and Plan: Patient is getting medications for this WBC a little bit low from this. (3) Non-ST elevation myocardial infarction (NSTEMI): Code(s): I21.4 - Non-ST elevation (NSTEMI) myocardial infarction Status: Acute Assessment and Plan: he is not having any chest pain (4) CHF (congestive heart failure): Qualifiers: Heart failure chronicity: chronic Heart failure type: systolic Qualified Code(s): I50.22 - Chronic systolic (congestive) heart failure Code(s): I50.9 - Heart failure, unspecified Status: Chronic Assessment and Plan: his volume status looks good right now. We will watch him closely as we hydrate. No signs of fluid overload Subjective Date/time seen: 05/01/20 09:52 Interval history: The patient is feeling a little bit better. He has been working with physical therapy and feels stronger. appetite is good Review of Systems Cardiovascular: Cardiovascular: Reports no additional cardiovascular complaints Respiratory: Respiratory: Reports no additional respiratory complaints Gastrointestinal: Gastrointestinal: Reports no additional gastrointestinal complaints Genitourinary: Genitourinary: Reports no additional male genitourinary complaints Exam Narrative: Exam Narrative: WDWN in NAD skin no rash head ncat lungs clear bilaterally cor reg no rub or gallop abd BS+ nontender and soft ext no edema. Objective Data Vital Signs Vital Signs: Vital Signs - 24 hr 04/30/20 14:00 04/30/20 20:55 04/30/20 22:00 Temperature 36.6 C 36.0 C L Pulse Rate 69 64 70 Respiratory Rate 16 18 Blood Pressure 126/64 121/65 Pulse Oximetry 97 99 05/01/20 06:00 Temperature 36.4 C Pulse Rate 65 Respiratory Rate 16 Blood Pressure 147/56 H Pulse Oximetry 99 Intake/Output Intake/Output: Intake & Output 04/28/20 04/29/20 04/30/20 05/01/20 23:59 23:59 23:59 23:59 Intake Total 1030 3220 1200 Output Total 300 2600 600 Balance 730 620 600 Meds/Results Medications: Active Medications Generic Name Dose Route Start Last Admin Trade Name Freq PRN Reason Stop Dose Admin Aspirin 81 mg 04/30/20 09:00 05/01/20 09:05 Aspirin Ec PO 81 mg QAM VIKAS Administration Calcium Carbonate 500 mg 04/30/20 09:00 05/01/20 09:04 Os-Edward 500 +D Tablet PO 05/30/20 09:01 500 mg DAILY VIKAS Administration Dexamethasone 4 mg 05/06/20 09:00 Dexamethasone Po PO Fr@0900 VIKAS Sodium Chloride 1,000 mls @ 75 mls/hr 04/29/20 08:05 05/01/20 06:06 Normal Saline Iv IV CONT 75 mls/hr .[id number] VIKAS Administration Metoprolol Tartrate 12.5 mg 04/29/20 21:00 05/01/20 09:04 Lopressor PO 12.5 mg Q12HR VIKAS
[2020-05-01 15:00] VITALS: BP 118/57; PULSE 72; RESP 16; TEMP 36.8; O2SAT 97
--- NOTE | 2020-05-01 16:31 | PM.IMPN ---
Progress Note: A&P Assessment and Plan (1) Acute on chronic renal failure: Qualifiers: Acute renal failure type: unspecified Chronic kidney disease stage: stage 5, not on chronic dialysis Qualified Code(s): N17.9 - Acute kidney failure, unspecified; N18.5 - Chronic kidney disease, stage 5 Code(s): N17.9 - Acute kidney failure, unspecified; N18.9 - Chronic kidney disease, unspecified Status: Acute Assessment and Plan: felt to be due to hypertension and multiple myeloma, acutely worsened by recent diuretic use which has been discontinued. Creatinine was 8.2 at admission and has improved to 6.5 today. Continue gentle IV hydration Renally dose medications and avoid nephrotoxic agents (2) CKD (chronic kidney disease), stage V: Code(s): N18.5 - Chronic kidney disease, stage 5 Status: Chronic Assessment and Plan: [place] to be secondary to hypertension and multiple myeloma as above. renal ultrasound shows mild atrophy of the kidneys without hydronephrosis. Nephrology has been consulted recommendations are greatly appreciated. It seems he is planning to pursue peritoneal dialysis and he will need to follow-up with Dr. Moeller for this (3) Normocytic anemia: Code(s): D64.9 - Anemia, unspecified Status: Chronic Assessment and Plan: Secondary to CKD and multiple myeloma. H&H has declined, which may be dilutional given IV fluids. Epogen was ordered today following discussion with Dr. Quinonez, however patient refused, stating that his oncologist told him to avoid this medication. Continue to monitor H&H closely Transfuse as needed (4) Neutropenia: Qualifiers: Neutropenia type: unspecified Qualified Code(s): D70.9 - Neutropenia, unspecified Code(s): D70.9 - Neutropenia, unspecified Status: Acute Assessment and Plan: Likely due to multiple myeloma with recent therapy. Absolute neutrophils are low and WBC is 1.4. Consider addition of Neupogen if not improving Will plan to discuss with Dr. Nicolas tomorrow to determine best course of therapy. Monitor levels closely. (5) Multiple myeloma: Qualifiers: Multiple myeloma remission status: not in remission Qualified Code(s): C90.00 - Multiple myeloma not having achieved remission Code(s): C90.00 - Multiple myeloma not having achieved remission Status: Chronic Assessment and Plan: He is established with Dr. Nicolas. He last received chemotherapy on 03/30/2020. He will need to follow-up with Dr. Nicolas for his next appointment. (6) Chronic heart failure: Qualifiers: Heart failure type: diastolic Qualified Code(s): I50.32 - Chronic diastolic (congestive) heart failure Code(s): I50.9 - Heart failure, unspecified Status: Chronic Assessment and Plan: appears clinically compensated. Continue current medication regimen Subjective Date/time seen: 05/01/20 16:31 Interval history: Date of service: 05/01/2020 Assuming care for Mr. Boyer who was hospitalized for acute on chronic kidney disease and has a history of multiple myeloma. He reports he is feeling well today. He has no complaints at this time. His appetite has been good. He has been getting up and walking around. He participated with therapy earlier and felt that he did well and he is regaining some of his strength. He denies fevers, chills, nausea, abdominal pain, diarrhea, dizziness, lightheadedness, shortness of breath, palpitations, cough, chest pain, Headache, confusion, bleeding or bruising. Review of Systems Review of Systems: Narrative: a 12 point review of systems was reviewed with pertinent positives and negatives as per HPI. Exam Narrative: Exam Narrative: Mr. Boyer is examined alone today. He is a well-nourished 80-year-old male who is lying supine in bed. He appears comfortable and is in no acute respi
[2020-05-01 19:35] LABS: Hematocrit 21.2 % (42.0-52.0); Hemoglobin 7.1 g/dL (14.0-18.0)
[2020-05-01 20:00] VITALS: PULSE 70; RESP 16; O2SAT 97
[2020-05-01 21:05] VITALS: PULSE 70
[2020-05-01] MEDS: ROSUVASTATIN 5 MG TABLET PO (21:05)
[2020-05-01] MEDS: HOME MEDICATION 1 EACH PO (21:06)
[2020-05-01 22:00] VITALS: BP 129/60; PULSE 71; RESP 18; TEMP 37.2; O2SAT 99
[2020-05-02] VITALS (13 sets, daily range): BP systolic 107–137; BP diastolic 53–66; PULSE 65–83; RESP 16–18; TEMP 36.7–36.9; O2SAT 98–100
[2020-05-02 02:25] LABS: Eosinophils Absolute Auto 0.1 K/mm3 (0-0.3); Eosinophils Percent Auto 5.8 % (0-4.4); Immature Granulocyte Absolute 0.09 K/mm3 (0.00-0.031); Immature Granulocyte Percent A 6.6 % (0-0.5); Lymphocytes Absolute Auto 0.36 K/mm3 (0.9-3.2); Lymphocytes Percent Auto 26.3 % (18.3-44.2); Mean Corpuscular HGB Conc 34.2 g/dl (32-36); Mean Corpuscular Hemoglobin 33.3 pg (26-34); Mean Corpuscular Volume 97.5 fl (80-100); Mean Platelet Volume 10.5 fl (7.4-10.4); Monocytes Absolute Auto 0.2 K/mm3 (0.1-0.6); Monocytes Percent Auto 13.9 % (2.6-8.5); Neutrophils Absolute Auto 0.7 K/mm3 (1.3-6.7); Neutrophils Percent Auto 47.4 % (45.5-73.1); Platelet Count Result 103 k/mm3 (150-375); Red Blood Count 2.04 M/mm3 (4.6-6.20); Red Cell Distribution Width 14.3 % (11.5-14.5)
[2020-05-02 02:47] LABS: Albumin Level 2.7 g/dL (3.5-5.1); Anion Gap 10.5 mmol/L (7-16); Blood Urea Nitrogen 92 mg/dL (9-20); Calcium 7.2 mg/dL (8.4-10.2); Carbon Dioxide 19 mmol/L (22-30); Chloride 110 mmol/L (98-107); Estimated CRCL calculation 9 ml/min; Estimated Glomerular Filt Rate 10; Glucose 102 mg/dL (75-110); Potassium 3.5 mmol/L (3.4-5.0); Sodium 136 mmol/L (137-145)
[2020-05-02 02:55] LABS: Hematocrit 19.9 % (42.0-52.0); Hemoglobin 6.8 g/dL (14.0-18.0); White Blood Count 1.4 K/mm3 (4.5-10.0)
[2020-05-02 02:56] LABS: Hypochromasia 1+ (NORMAL); Microcytosis 1+ (NORMAL)
[2020-05-02 02:57] LABS: Ovalocytes 1+ (NORMAL)
[2020-05-02] MEDS: SODIUM CHLORIDE 0.9% IV 1,000 ML 75 ML IV CONT (06:22)
--- NOTE | 2020-05-02 09:52 | PM.PNNEP ---
Progress Note: A&P Assessment and Plan (1) Acute on chronic renal failure: Qualifiers: Acute renal failure type: unspecified Chronic kidney disease stage: stage 5, not on chronic dialysis Qualified Code(s): N17.9 - Acute kidney failure, unspecified; N18.5 - Chronic kidney disease, stage 5 Code(s): N17.9 - Acute kidney failure, unspecified; N18.9 - Chronic kidney disease, unspecified Status: Acute Assessment and Plan: The patient has chronic kidney disease. This is likely on the basis of hypertension and multiple myeloma. He has a superimposed acute on chronic process. He has been on diuretics recently. He is probably pre renal. he is eating well. We can stop the fluids today. He can be discharged any time from kidney standpoint. (2) Multiple myeloma: Qualifiers: Multiple myeloma remission status: not in remission Qualified Code(s): C90.00 - Multiple myeloma not having achieved remission Code(s): C90.00 - Multiple myeloma not having achieved remission Status: Chronic Assessment and Plan: Patient is getting medications for this WBC a little bit low from this. He is anemic as well. He is going to get a unit of blood. (3) Non-ST elevation myocardial infarction (NSTEMI): Code(s): I21.4 - Non-ST elevation (NSTEMI) myocardial infarction Status: Acute Assessment and Plan: he is not having any chest pain (4) CHF (congestive heart failure): Qualifiers: Heart failure chronicity: chronic Heart failure type: systolic Qualified Code(s): I50.22 - Chronic systolic (congestive) heart failure Code(s): I50.9 - Heart failure, unspecified Status: Chronic Assessment and Plan: his volume status looks good right now. We will watch him closely as we hydrate. No signs of fluid overload Subjective Date/time seen: 05/02/20 09:52 Interval history: The patient is feeling good. He has been working with physical therapy and feels stronger. appetite is good Eager for discharge. Review of Systems Cardiovascular: Cardiovascular: Reports no additional cardiovascular complaints Respiratory: Respiratory: Reports no additional respiratory complaints Gastrointestinal: Gastrointestinal: Reports no additional gastrointestinal complaints Genitourinary: Genitourinary: Reports no additional male genitourinary complaints Exam Narrative: Exam Narrative: WDWN in NAD skin no rash or subcu nodules head ncat lungs clear bilaterally cor reg no rub or gallop abd BS+ nontender and soft ext no edema Or cyanosis. Objective Data Vital Signs Vital Signs: Vital Signs - 24 hr 05/01/20 15:00 05/01/20 20:00 05/01/20 21:05 Temperature 36.8 C Pulse Rate 72 70 70 Respiratory Rate 16 16 Blood Pressure 118/57 L Pulse Oximetry 97 97 05/01/20 22:00 05/02/20 06:00 Temperature 37.2 C 36.9 C Pulse Rate 71 67 Respiratory Rate 18 18 Blood Pressure 129/60 118/64 Pulse Oximetry 99 98 Intake/Output Intake/Output: Intake & Output 04/29/20 04/30/20 05/01/20 05/02/20 23:59 23:59 23:59 23:59 Intake Total 1030 3220 3760 1300 Output Total 300 2600 1250 1200 Balance 359 745 4494 100 Meds/Results Medications: Active Medications Generic Name Dose Route Start Last Admin Trade Name Freq PRN Reason Stop Dose Admin Aspirin 81 mg 04/30/20 09:00 05/01/20 09:05 Aspirin Ec PO 81 mg QAM VIKAS Administration Calcium Carbonate 500 mg 04/30/20 09:00 05/01/20 09:04 Os-Edward 500 +D Tablet PO 05/30/20 09:01 500 mg DAILY VIKAS Administration Dexamethasone 4 mg 05/06/20 09:00 Dexamethasone Po PO Fr@0900 VIKAS Filgrastim 480 mcg 05/02/20 09:00 Neupogen SUB-Q QAM VIKAS Sodium Chloride 1,000 mls @ 75 mls/hr 04/29/20 08:05 05/02/20 06:22 Normal Saline Iv IV CONT 75 mls/hr .[id number] VIKAS Administration Sodium Chloride 250 mls @ 30 mls/hr
--- NOTE | 2020-05-02 09:53 | PC.NURSE ---
Notified Keisha Laguna that blood bacnk said RBC unit will not be ready for a few hours do to sending out blood sample for type and cross.
[2020-05-02] MEDS: valACYclovir HCL 500 MG TABLET PO (10:20)
[2020-05-02] MEDS: METOPROLOL TARTRATE 12.5 MG TABLET PO ×2 (10:20→20:07)
[2020-05-02] MEDS: TAMSULOSIN HCL 0.4 MG CAPSULE PO (10:20)
[2020-05-02] MEDS: ASPIRIN 81 MG ENTERIC TABLET PO (10:20)
[2020-05-02] MEDS: TICAGRELOR 90 MG TABLET PO ×2 (10:20→20:07)
[2020-05-02] MEDS: FILGRASTIM 480 MCG/1.6 ML VIAL SUB-Q (10:25)
--- NOTE | 2020-05-02 16:27 | PM.IMPN ---
Progress Note: A&P Assessment and Plan (1) Acute on chronic renal failure: Qualifiers: Acute renal failure type: unspecified Chronic kidney disease stage: stage 5, not on chronic dialysis Qualified Code(s): N17.9 - Acute kidney failure, unspecified; N18.5 - Chronic kidney disease, stage 5 Code(s): N17.9 - Acute kidney failure, unspecified; N18.9 - Chronic kidney disease, unspecified Status: Acute Assessment and Plan: [place] to be due to hypertension and multiple myeloma, acutely worsened by recent diuretic use which has been discontinued. He has stage 5 CKD. Renal ultrasound shows mild atrophy of the kidneys without hydronephrosis. Creatinine was 8.2 at admission and has improved to 5.8 today. Nephrology has been consulted and recommendations are greatly appreciated. Discontinue IV fluids. He is tolerating oral intake. Renally dose medications and avoid nephrotoxic agents It seems he is planning to pursue peritoneal dialysis and he will need to follow-up with Dr. Moeller for this (2) Normocytic anemia: Code(s): D64.9 - Anemia, unspecified Status: Chronic Assessment and Plan: Secondary to CKD and multiple myeloma. H&H has declined and was low at 6.8 and 19.9 early this morning. He is awaiting transfusion of 1 unit pRBC. Blood is coming from outside facility. Continue to monitor H&H closely following transfusion. Will check H&H q6h one hour following transfusion. Spoke with his oncologist Dr. Nicolas who plans to begin Epogen as an outpatient in the near future. (3) Neutropenia: Qualifiers: Neutropenia type: unspecified Qualified Code(s): D70.9 - Neutropenia, unspecified Code(s): D70.9 - Neutropenia, unspecified Status: Acute Assessment and Plan: Likely due to multiple myeloma with recent therapy. Absolute neutrophils are low and WBC is 1.4. Administer Neupogen 480 mcg subq daily per recommendations from Dr. Nicolas. Will d/c if ANC increases to >1000. Continue to hold patients multiple myeloma medications per Dr. Nicolas. Patient has been instructed not to take these medications upon discharge until further follow up with Dr. Nicolas. Continue to monitor levels closely. (4) Multiple myeloma: Qualifiers: Multiple myeloma remission status: not in remission Qualified Code(s): C90.00 - Multiple myeloma not having achieved remission Code(s): C90.00 - Multiple myeloma not having achieved remission Status: Chronic Assessment and Plan: He is established with Dr. Nicolas. He last received chemotherapy on 03/30/2020. He will need to follow-up with Dr. Nicolas for his next appointment. Hold myeloma medications as above. (5) Chronic heart failure: Qualifiers: Heart failure type: diastolic Qualified Code(s): I50.32 - Chronic diastolic (congestive) heart failure Code(s): I50.9 - Heart failure, unspecified Status: Chronic Assessment and Plan: Appears clinically compensated. Continue current medication regimen Subjective Date/time seen: 05/02/20 16:27 Interval history: Date of service: 05/02/2020 Mr. Boyer is feeling well today. He complains of feeling fatigued and a bit weak. He had a harder time doing his usual exercises today. He denies dizziness, lightheadedness, shortness of breath, or palpitations. His appetite has been good. He had a formed BM this afternoon. He denies dysuria or hematuria. He denies fever, chills, nausea, vomiting, abdominal pain, headache, or confusion. He was having some bleeding at a blood draw site but this has stopped. He has no additional concerns. Review of Systems Review of Systems: Narrative: A 12 point review of systems was reviewed with pertinent positives and negatives as per HPI. Exam Narrative: Exam Narrative: Mr. Boyer is examined alone today. He is a well-nourished 80-year-old male who is lying zuluaga
[2020-05-02] MEDS: ROSUVASTATIN 5 MG TABLET PO (20:07)
[2020-05-02] MEDS: HOME MEDICATION 1 EACH PO (20:09)
[2020-05-02 21:18] LABS: Hematocrit 23.3 % (42.0-52.0)
[2020-05-03 06:00] VITALS: BP 145/58; PULSE 63; RESP 18; TEMP 36.4; O2SAT 99
[2020-05-03 06:33] LABS: Basophils Percent Auto 0.3 % (0.2-1.2); Eosinophils Absolute Auto 0.2 K/mm3 (0-0.3); Eosinophils Percent Auto 3.9 % (0-4.4); Hematocrit 24.9 % (42.0-52.0); Hemoglobin 8.3 g/dL (14.0-18.0); Immature Granulocyte Absolute 0.25 K/mm3 (0.00-0.031); Immature Granulocyte Percent A 6.5 % (0-0.5); Lymphocytes Absolute Auto 0.45 K/mm3 (0.9-3.2); Lymphocytes Percent Auto 11.7 % (18.3-44.2); Mean Corpuscular HGB Conc 33.3 g/dl (32-36); Mean Corpuscular Hemoglobin 32.2 pg (26-34); Mean Corpuscular Volume 96.5 fl (80-100); Monocytes Absolute Auto 0.3 K/mm3 (0.1-0.6); Neutrophils Absolute Auto 2.7 K/mm3 (1.3-6.7); Neutrophils Percent Auto 69.6 % (45.5-73.1); Platelet Count Result 115 k/mm3 (150-375); Red Blood Count 2.58 M/mm3 (4.6-6.20); Red Cell Distribution Width 15.6 % (11.5-14.5); White Blood Count 3.9 K/mm3 (4.5-10.0)
[2020-05-03 07:20] LABS: Albumin Level 2.8 g/dL (3.5-5.1); Anion Gap 10.9 mmol/L (7-16); Blood Urea Nitrogen 81 mg/dL (9-20); Calcium 7.9 mg/dL (8.4-10.2); Carbon Dioxide 19 mmol/L (22-30); Chloride 113 mmol/L (98-107); Estimated CRCL calculation 10 ml/min; Estimated Glomerular Filt Rate 11; Glucose 96 mg/dL (75-110); Phosphorus 5.3 mg/dL (2.5-4.5); Potassium 3.9 mmol/L (3.4-5.0); Sodium 139 mmol/L (137-145)
--- NOTE | 2020-05-03 07:39 | PC.NURSE ---
Spoke with Keisha MOREIRA about patients bloody nose. patient says he has had a bloody nose since 4am off and on.
[2020-05-03 08:23] VITALS: PULSE 65
[2020-05-03] MEDS: METOPROLOL TARTRATE 12.5 MG TABLET PO (08:23)
[2020-05-03] MEDS: ASPIRIN 81 MG ENTERIC TABLET PO (08:25)
[2020-05-03] MEDS: valACYclovir HCL 500 MG TABLET PO (08:25)
[2020-05-03] MEDS: TAMSULOSIN HCL 0.4 MG CAPSULE PO (08:25)
--- NOTE | 2020-05-03 10:03 | PM.IMPN ---
Progress Note: A&P Assessment and Plan (1) Acute on chronic renal failure: Qualifiers: Acute renal failure type: unspecified Chronic kidney disease stage: stage 5, not on chronic dialysis Qualified Code(s): N17.9 - Acute kidney failure, unspecified; N18.5 - Chronic kidney disease, stage 5 Code(s): N17.9 - Acute kidney failure, unspecified; N18.9 - Chronic kidney disease, unspecified Status: Acute Assessment and Plan: [place] to be due to hypertension and multiple myeloma, acutely worsened by recent diuretic use which has been discontinued. He has stage 5 CKD. Renal ultrasound shows mild atrophy of the kidneys without hydronephrosis. Creatinine was 8.2 at admission and has improved to 5.3 today. Nephrology has been consulted and recommendations are greatly appreciated. IV fluids have been discontinued. He is tolerating oral intake. Renally dose medications and avoid nephrotoxic agents It seems he is planning to pursue peritoneal dialysis and he will need to follow-up with Dr. Moeller for this (2) Neutropenia: Qualifiers: Neutropenia type: unspecified Qualified Code(s): D70.9 - Neutropenia, unspecified Code(s): D70.9 - Neutropenia, unspecified Status: Acute Assessment and Plan: Likely due to multiple myeloma with recent therapy. WBC was as low as 1.4 with low ANC. Improved with neupogen. WBC is 3.9 and ANC is 2700. Hold Neupogen 480 mcg subq daily per recommendations from Dr. Nicolas as ANC increased to >1000. Continue to hold patients multiple myeloma medications per Dr. Nicolas. Patient has been instructed not to take these medications upon discharge until further follow up with Dr. Nicolas. Continue to monitor levels closely. (3) Normocytic anemia: Code(s): D64.9 - Anemia, unspecified Status: Chronic Assessment and Plan: Secondary to CKD and multiple myeloma. He underwent transfusion of 1 unit pRBC on 05/02. H&H stable since that time. Continue to monitor H&H q6h Spoke with his oncologist Dr. Nicolas who plans to begin Epogen as an outpatient in the near future. (4) Epistaxis: Code(s): R04.0 - Epistaxis Status: Acute Assessment and Plan: Episode of epistaxis this morning. Approximately 4 long clot released from left nare. H&H has remained stable. Continue to apply nasal pressure. Sit upright with head forward. Administer Afrin Monitor H&H q6H Hold brilinta Consider applying packing if no improvement. (5) Multiple myeloma: Qualifiers: Multiple myeloma remission status: not in remission Qualified Code(s): C90.00 - Multiple myeloma not having achieved remission Code(s): C90.00 - Multiple myeloma not having achieved remission Status: Chronic Assessment and Plan: He is established with Dr. Nicolas. He last received chemotherapy on 03/30/2020. He will need to follow-up with Dr. Nicolas for his next appointment in approximately 1 week. Hold myeloma medications as above. (6) Chronic heart failure: Qualifiers: Heart failure type: diastolic Qualified Code(s): I50.32 - Chronic diastolic (congestive) heart failure Code(s): I50.9 - Heart failure, unspecified Status: Chronic Assessment and Plan: Appears clinically compensated. Continue current medication regimen Subjective Date/time seen: 05/03/20 10:03 Interval history: Date of service: 05/03/2020 I was called about Mr. alonso this morning because he was having a nose bleed. He had been having a slow trickle of blood since approximately 4:00 a.m. A dark red clot was removed that was approximately 4 inches long. He has several tissues with spots of bright red blood but no tissues are saturated. Nursing staff has applied pressure and his head is bent forward. He denies any discomfort. He reports he has very light nose bleeds occasionally, although his last one has been mon
--- NOTE | 2020-05-03 10:30 | PM.PNNEP ---
Progress Note: A&P Assessment and Plan (1) Acute on chronic renal failure: Qualifiers: Acute renal failure type: unspecified Chronic kidney disease stage: stage 5, not on chronic dialysis Qualified Code(s): N17.9 - Acute kidney failure, unspecified; N18.5 - Chronic kidney disease, stage 5 Code(s): N17.9 - Acute kidney failure, unspecified; N18.9 - Chronic kidney disease, unspecified Status: Acute Assessment and Plan: The patient has chronic kidney disease. This is likely on the basis of hypertension and multiple myeloma. He has a superimposed acute on chronic process. He has been on diuretics recently. his creatinine has improved with fluids. His fluids were discontinued. He is eating well. His creatinine has improved to his former baseline. I am okay with discharge in time ready for from everybody else's standpoint. (2) Multiple myeloma: Qualifiers: Multiple myeloma remission status: not in remission Qualified Code(s): C90.00 - Multiple myeloma not having achieved remission Code(s): C90.00 - Multiple myeloma not having achieved remission Status: Chronic Assessment and Plan: Patient is getting medications for this WBC a little bit low from this. He is anemic as well. He is going to get a unit of blood. (3) Non-ST elevation myocardial infarction (NSTEMI): Code(s): I21.4 - Non-ST elevation (NSTEMI) myocardial infarction Status: Acute Assessment and Plan: he is not having any chest pain (4) CHF (congestive heart failure): Qualifiers: Heart failure chronicity: chronic Heart failure type: systolic Qualified Code(s): I50.22 - Chronic systolic (congestive) heart failure Code(s): I50.9 - Heart failure, unspecified Status: Chronic Assessment and Plan: his volume status looks good right now. No signs of fluid overload Subjective Date/time seen: 05/03/20 10:30 Interval history: The patient is feeling good. Today he has a nose bleed. No chest pain or shortness of breath. Review of Systems Cardiovascular: Cardiovascular: Reports no additional cardiovascular complaints Respiratory: Respiratory: Reports no additional respiratory complaints Gastrointestinal: Gastrointestinal: Reports no additional gastrointestinal complaints Genitourinary: Genitourinary: Reports no additional male genitourinary complaints Exam Narrative: Exam Narrative: WDWN in NAD skin no rash or subcu nodules head ncat lungs Clear to auscultation cor reg no rub or gallop abd BS+ nontender and soft Extremities no edema. Objective Data Vital Signs Vital Signs: Vital Signs - 24 hr 05/02/20 14:00 05/02/20 16:33 05/02/20 16:49 Temperature 36.9 C 36.8 C 36.7 C Pulse Rate 83 74 67 Respiratory Rate 18 16 16 Blood Pressure 119/57 L 113/53 L 107/54 L Pulse Oximetry 99 99 100 05/02/20 17:49 05/02/20 17:50 05/02/20 18:49 Temperature 36.7 C 36.7 C 36.7 C Pulse Rate 66 66 76 Respiratory Rate 18 18 16 Blood Pressure 128/66 128/66 137/54 L Pulse Oximetry 99 99 100 05/02/20 18:50 05/02/20 19:32 05/02/20 19:49 Temperature 36.7 C 36.8 C 36.9 C Pulse Rate 76 73 73 Respiratory Rate 18 18 18 Blood Pressure 137/54 L 130/63 128/59 L Pulse Oximetry 100 100 100 05/02/20 20:07 05/02/20 22:00 05/03/20 06:00 Temperature 36.7 C 36.4 C Pulse Rate 73 65 63 Respiratory Rate 18 18 Blood Pressure 131/57 L 145/58 H Pulse Oximetry 99 99 05/03/20 08:23 Temperature Pulse Rate 65 Respiratory Rate Blood Pressure Pulse Oximetry Intake/Output Intake/Output: Intake & Output 04/30/20 05/01/20 05/02/20 05/03/20 23:59 23:59 23:59 23:59 Intake Total 3220 3760 2410 250 Output Total 2600 1250 1550 300 Balance 620 2510 860 -50 Meds/Results Medications: Active Medications Generic Name Dose Route Start Last Admin Trade Name Freq PRN Reason Stop Dose Admin As
[2020-05-03] MEDS: OXYMETAZOLINE HCL 0.05% NAS 15 ML BTL (*BKC) 1 SPRAY NASAL (11:33)
[2020-05-03 12:01] LABS: Hematocrit 24.7 % (42.0-52.0); Hemoglobin 8.5 g/dL (14.0-18.0)
[2020-05-03 13:31] VITALS: BP 132/54; PULSE 56; RESP 18; TEMP 36.7; O2SAT 98
--- NOTE | 2020-05-03 14:20 | PM.DS ---
DS: Admitting Diagnosis Admitting Diagnosis Admitting Diagnosis: Acute kidney failure, unspecified DS: Discharge Diagnosis Discharge Diagnosis (1) Acute on chronic renal failure: Qualifiers: Acute renal failure type: unspecified Chronic kidney disease stage: stage 5, not on chronic dialysis Qualified Code(s): N17.9 - Acute kidney failure, unspecified; N18.5 - Chronic kidney disease, stage 5 Code(s): N17.9 - Acute kidney failure, unspecified; N18.9 - Chronic kidney disease, unspecified Status: Acute Assessment and Plan: [place] to be due to hypertension and multiple myeloma, acutely worsened by recent diuretic use which has been discontinued. He has stage 5 CKD. Renal ultrasound showed mild atrophy of the kidneys without hydronephrosis. He was seen in consultation by nephrology and given IV fluids. Creatinine was 8.2 at admission and improved to 5.3 at discharge. He was seen in consultation by nephrology. It seems he is planning to pursue peritoneal dialysis and he will need to follow-up with Dr. Moeller. He will repeat BMP in 3 days. (2) Neutropenia: Qualifiers: Neutropenia type: unspecified Qualified Code(s): D70.9 - Neutropenia, unspecified Code(s): D70.9 - Neutropenia, unspecified Status: Acute Assessment and Plan: Likely due to multiple myeloma with recent therapy. WBC was as low as 1.4 with low ANC. I discussed the case with his oncologist Dr. Nicolas who recommended Neupogen. He had improvement with one dose and was discontinued because ANC increased to >1000. WBC was 3.9 and ANC was 2700 at discharge. Patient has been instructed not to take his myeloma medications upon discharge until further follow up with Dr. Nicolas. Outpatient appointment in 1 week. Repeat CBCd in 3 days. (3) Normocytic anemia: Code(s): D64.9 - Anemia, unspecified Status: Chronic Assessment and Plan: Secondary to CKD and multiple myeloma. He underwent transfusion of 1 unit pRBC on 05/02 and H&H remained stable following. Spoke with his oncologist Dr. Nicolas who plans to begin Epogen as an outpatient in the near future. Repeat labs as above. (4) Epistaxis: Code(s): R04.0 - Epistaxis Status: Acute Assessment and Plan: He had an episode of epistaxis early am on 05/03 with approximately 4 long clot released from left nare. Bleeding stopped with firm nasal pressure, upright position, and Afrin. Upon re-examination, the nares were clear with evidence of dried blood. H&H remained stable. He was educated on how to manage a possible subsequent nosebleed at home and encouraged to return to the ED if he experienced persistent bleeding. He was also given ENT office information for follow up if epistaxis persisted. (5) Multiple myeloma: Qualifiers: Multiple myeloma remission status: not in remission Qualified Code(s): C90.00 - Multiple myeloma not having achieved remission Code(s): C90.00 - Multiple myeloma not having achieved remission Status: Chronic Assessment and Plan: He is established with Dr. Nicolas. He last received chemotherapy on 03/30/2020. He has a follow up appointment in 1 week. Hold myeloma medications as above. (6) Chronic heart failure: Qualifiers: Heart failure type: diastolic Qualified Code(s): I50.32 - Chronic diastolic (congestive) heart failure Code(s): I50.9 - Heart failure, unspecified Status: Chronic Assessment and Plan: Clinically compensated. Continue current medication regimen (7) Antiplatelet or antithrombotic long-term use: Code(s): Z79.02 - penitentiary (current) use of antithrombotics/antiplatelets Status: Acute Assessment and Plan: Brilinta was held on morning of 05/03 given acute bleeding, but was resumed upon discharge given his recent cardiac stent in December 2019. He was educated regarding risk of bleeding with this medication and will monitor.
--- NOTE | 2020-05-03 15:55 | PCOTNOTE ---
The OT treatment was unable to be completed this date. Will continue plan of care tomorrow, 05/04/2020.
== END 2020-05-03 16:00 | disposition home or self-care (01) | DRG 683 ==
LOC: ANHED 06:32 → ANH3MEDSUR 08:29
PROVIDERS: Internal Medicine; Internal Medicine Nephrology; Physician Assistant; Admitting Provider Family Medicine; Emergency Provider General Practice; PCP Family Medicine; Visit Provider Family Medicine
DX: N17.9 Acute kidney failure, unspecified (principal); C90.00 Multiple myeloma not having achieved remission; I50.32 Chronic diastolic (congestive) heart failure; N18.5 Chronic kidney disease, stage 5; D63.0 Anemia in neoplastic disease; D63.1 Anemia in chronic kidney disease; E78.5 Hyperlipidemia, unspecified; N40.0 Benign prostatic hyperplasia without lower urinary tract symptoms; R04.0 Epistaxis; D70.2 Other drug-induced agranulocytosis; T45.1X5A Adverse effect of antineoplastic and immunosuppressive drugs, initial encounter; Z95.5 Presence of coronary angioplasty implant and graft; Z79.02 Long term (current) use of antithrombotics/antiplatelets; I25.2 Old myocardial infarction
CPT/HCPCS: 36415; 36430; 36600; 71045; 76775; 80053; 80069; 81001; 82375; 82570; 82805; 83050; 83880; 84156; 84300; 85014; 85018; 85025; 85610; 85730; 85999; 86850; 86870; 86880; 86900; 86901; 86902; 86920; 86970; 93005; 96360; 96361; 97110; 97116; 97161; 97166; 97530; 97535; 99291; A9270; G0378; J1442; J7030; P9016

== ENCOUNTER 2020-07-11 07:46 | Outpatient (RCR) | payer MEDICARE, BC, SELFPAY ==
[2020-05-25 12:40] LABS: Hematocrit 23.4 % (42.0-52.0); Hemoglobin 7.7 g/dL (14.0-18.0)
[2020-05-25 13:15] VITALS: BP 122/53; PULSE 100; RESP 18; TEMP 37; O2SAT 100
[2020-05-25] MEDS: diphenhydrAMINE HCl CAP 25 MG CAPSULE PO (14:16)
[2020-05-25] MEDS: ACETAMINOPHEN 325 MG TABLET 650 MG PO (14:16)
--- NOTE | 2020-05-25 14:30 | PC.NURSE ---
BLOOD UNIT NOT READY PER BLOOD BANK. PT. UPDATED.
--- NOTE | 2020-05-25 15:50 | PC.NURSE ---
NOTIFIED BY BLOOD BANK THAT PT. WILL REQUIRE AN EXTENDED ANTIBODY SCREEN ON BLOOD BEFORE UNIT CAN BE ISSUED FOR TRANSFUSION. THIS RN INSTRUCTED BY BLOOD BANK TO COLLECT 4 PINK TOP TUBES OF BLOOD AND SEND TO LAB. THIS RN INFORMED THAT BLOOD UNIT WILL NOT BE READY TO ISSUE TODAY AND PT. WILL NEED TO RETURN IN AM 05/26/20 FOR 1 UNIT PRBC TRANSFUSION. DISCUSSED THIS INFORMATION WITH PT. PT. VOICED UNDERSTANDING AND STATES WILL RETURN FOR BLOOD TRANSFUSION IN AM AT 0730. INSTRUCTED PT. TO KEEP PT. ID BAND IN PLACE ON WRIST FOR REVISIT TOMORROW. WILL DISCONTINUE IV SITE PRIOR TO RELEASING PT. TO GO HOME.
--- NOTE | 2020-05-25 16:45 | PC.NURSE ---
4 PINK TOP TUBES OF BLOOD SENT TO LAB FOR EXTENDED ANTIBODY SCREEN REQUESTED. IV SITE R. FOREARM DISCONTINUED INTACT AND SITE DRESSED. BRANT WELL. SENT HOME, OUT AMBULATORY W/ TO CAR. WILL RETURN IN AM AT 0730 AFTER SCREEN COMPLETE AND BLOOD READY TO BE ISSUED FOR TRANSFUSION. VOICES NO C/O.
--- NOTE | 2020-05-26 07:54 | PC.NURSE ---
Pt. returns for blood transfusion. Blood bank notified and transfusion to begin. Pt. ambulatory and arrives to [facility] with spouse Ludy.
[2020-05-26] MEDS: ACETAMINOPHEN 325 MG TABLET 650 MG PO (07:58)
[2020-05-26] MEDS: diphenhydrAMINE HCl CAP 25 MG CAPSULE PO (07:58)
[2020-05-26 08:15] VITALS: BP 100/55; PULSE 62; RESP 18; TEMP 37; O2SAT 100
[2020-05-26 08:30] VITALS: BP 103/52; PULSE 60; RESP 14; TEMP 37; O2SAT 100
[2020-05-26 09:30] VITALS: BP 101/46; PULSE 60; RESP 16; TEMP 36.8; O2SAT 100
[2020-05-26 10:30] VITALS: BP 106/54; BP 110/51; PULSE 55; PULSE 56; RESP 16; TEMP 36.4; TEMP 36.8; O2SAT 100; O2SAT 99
--- NOTE | 2020-05-26 11:12 | PC.NURSE ---
Pt. and spouse given discharge education on post-transfusion reactions. Pt. and spouse verbalize understanding of discharge education. Pt. discharged home following blood transfusion. Vital signs stable and no sign of allergic reaction upon departure.
[2020-07-11 08:07] VITALS: TEMP 36.7
[2020-07-11] MEDS: ACETAMINOPHEN 325 MG TABLET 650 MG PO (08:07)
[2020-07-11] MEDS: diphenhydrAMINE HCl CAP 25 MG CAPSULE PO (08:07)
--- NOTE | 2020-07-11 08:22 | PC.NURSE ---
Patient arrives ambulatory to [facility] room 2. Patient denies pain and is A & O x 4. Consent obtained and signed by patient. IV access initiated in right forearm. Premedications including 650 mg Tylenol and 25 mg Benadryl administered as ordered. Patient updated on plan of care and verbalizes understanding. Will continue to monitor.
[2020-07-11 08:30] LABS: Hematocrit 21.8 % (42.0-52.0); Hemoglobin 7.1 g/dL (14.0-18.0)
[2020-07-11 08:44] VITALS: BP 114/48; PULSE 53; RESP 14; TEMP 36.6; O2SAT 99
[2020-07-11 09:00] VITALS: BP 119/60; PULSE 55; RESP 16; TEMP 36.4; O2SAT 100
[2020-07-11 10:00] VITALS: BP 114/64; PULSE 55; RESP 15; TEMP 36.3; O2SAT 100
[2020-07-11 10:45] VITALS: BP 122/41; PULSE 62; RESP 16; TEMP 36.6; O2SAT 100
== END 2020-08-23 23:59 | disposition home or self-care (01) ==
LOC: ANHCPCTRAN 07:46
PROVIDERS: PCP Family Medicine; Visit Provider Internal Medicine Medical Oncology
DX: C90.00 Multiple myeloma not having achieved remission (principal); N18.3 Chronic kidney disease, stage 3 (moderate); D63.1 Anemia in chronic kidney disease
CPT/HCPCS: 36415; 36430; 85014; 85018; 86850; 86870; 86880; 86900; 86901; 86902; 86920; 86970; A9270; J7050; P9016

== ENCOUNTER 2021-06-13 20:43 | Inpatient (IN) | payer MEDICARE, BC, SELFPAY ==
--- NOTE | ~2021-06-13 | US_ITS ---
EXAMINATION: US venous doppler LE EXAM DATE: 06/14/2021 16:36 INDICATION: Bilateral leg swelling and pain. TECHNIQUE: Multiple grayscale, color flow and Doppler images of the lower extremity deep venous syste ms bilaterally were obtained and reviewed. There is no prior study for comparison. FINDINGS: Right side: The right common femoral, femoral and profunda veins demonstrate normal color flow, respi ratory variation, augmentation and compressibility. Compressibility, color flow confirmed within the right popliteal, posterior tibial, peroneal, and greater saphenous veins. Left side: The left common femoral, femoral and profunda veins demonstrate normal color flow, respira tory variation, augmentation and compressibility. Compressibility, color flow confirmed within the l eft popliteal, posterior tibial, peroneal, and greater saphenous veins. IMPRESSION: 1. No lower extremity deep venous thrombosis bilaterally. Reviewed, dictated and finalized at location B.
--- NOTE | ~2021-06-13 | XR_ITS ---
EXAMINATION: XR chest 1V portable DATE: 06/16/2021 10:52 INDICATION: Shortness of breath TECHNIQUE: frontal view of the chest was obtained. COMPARISON: Chest radiograph dated 06/13/2021 FINDINGS: Unchanged mild biapical pleural-parenchymal scarring. Persistent opacity in the left mid to lower kolby g zone consistent with small to moderate-sized left pleural effusion with associated basilar atelecta sis and/or pneumonia. No pulmonary edema, pneumothorax or right-sided pleural effusion. The cardiomed iastinal silhouette is normal. Calcified right hilar lymph nodes consistent with old granulomatous di sease. IMPRESSION: 1. Significant change in a small to moderate left pleural effusion with left basilar atelectasis and/ or pneumonia. Reviewed, dictated and finalized at location A. IMPRESSION: 1. Significant change in a small to moderate left pleural effusion with left ba silar atelectasis and/or pneumonia.
--- NOTE | ~2021-06-13 | XR_ITS ---
XR chest 2V DATE: 06/13/2021 21:14 INDICATION: Generalized chest pain on exertion. History of stent in December,. Congestive heart brandon lure. TECHNIQUE: PA and lateral views COMPARISON: 04/29/2020 portable AP chest FINDINGS: There are bilateral predominantly lower lung infiltrates and pleural effusions, the infiltr ate and effusion greater on the left. Bilateral apical capping. Borderline heart size. Aortic arch calcification. No hilar or mediastinal enlargement is evident. Diffuse osteopenia. Degenerative changes of the thoracic and lumbar spine. IMPRESSION: Bilateral predominantly lower lung infiltrates and mild pleural effusions, greater on the left Reviewed, dictated and finalized at location A. IMPRESSION: Bilateral predominantly lower lung infiltrates and mild pleural eff usions, greater on the left
--- NOTE | ~2021-06-13 | CT_ITS ---
EXAMINATION: CT chest high resolution [facility] DATE: 06/14/2021 14:25 INDICATION: Pleural effusion, chest pain TECHNIQUE: Computed tomography (CT) of the abdomen and pelvis was performed without intravenous contr ast. The dose-length product (DLP) was 153.93 mGy-cm. Automated exposure control and iterative recons truction technique were employed. COMPARISON: None FINDINGS: There are moderate-sized left and small right pleural effusions. There is passive dependent atelectasis of the lungs. No pneumothorax is identified. Cardiomegaly is noted. There are no patholo gically enlarged thoracic lymph nodes. Calcified coronary artery atherosclerosis is noted. IMPRESSION: 1. Moderate-sized left and small right pleural effusion with passive dependent atelectasis of the kolby gs. 2. Cardiomegaly. Reviewed, dictated and finalized at location A. IMPRESSION: 1. Moderate-sized left and small right pleural effusion with passive dependent atelectasis of the lungs. 2. Cardiomegaly.
--- NOTE | ~2021-06-13 | NM_ITS ---
EXAMINATION: NM pulmonary perfusion DATE: 06/14/2021 12:57 INDICATION: Shortness of breath TECHNIQUE: 5.3 mCi Tc-99m MAA was administered IV. Scintigraphic images of the chest were obtained. COMPARISON: Chest radiograph dated 06/13/2021 FINDINGS: Perfusion defect at the left lung base and extending posterior to the left lung with attenuation and the posterior projection consistent with small to moderate-sized layering pleural effusion as seen on the CT from one day prior. There is otherwise homogeneous perfusion throughout the lungs with no oth er perfusion defects identified. IMPRESSION: 1. Intermediate probability for pulmonary embolism with small to moderate-sized left pleural effusio n but no other evident perfusion defects. Reviewed, dictated and finalized at location A. IMPRESSION: 1. Intermediate probability for pulmonary embolism with small to moderate-size d left pleural effusion but no other evident perfusion defects.
--- NOTE | 2021-06-13 20:45 | ECG_ITS ---
Measurements Intervals [place] Rate: 97 P: 42 FL: 125 QRS: -31 QRSD: 90 T: 69 QT: 335 QTc: 427 Interpretive Statements SINUS RHYTHM WITH SINUS ARRHYTHMIA LEFT AXIS DEVIATION EARLY PRECORDIAL R/S TRANSITION MINIMAL Q WAVES- HIGH LATERAL LEADS BASELINE WANDER- V1-V2 BORDERLINE ECG Electronically Signed On 06-14-2021 6:54:49 CDT by Jose Ramon Lao D.O.
[2021-06-13 20:54] VITALS: BP 149/68; PULSE 92; RESP 20; TEMP 36.3; O2SAT 98
[2021-06-13 21:09] LABS: Basophils Percent Auto 0.1 % (0.2-1.2); Hematocrit 27.7 % (42.0-52.0); Hemoglobin 8.6 g/dL (14.0-18.0); Immature Granulocyte Absolute 0.22 K/mm3 (0.00-0.031); Immature Platelet Fraction Pct 5.5 % (0.9-11.2); Lymphocytes Percent Auto 6.4 % (18.3-44.2); Mean Corpuscular Hemoglobin 29.6 pg (26-34); Mean Corpuscular Volume 95.2 fl (80-100); Monocytes Absolute Auto 0.2 K/mm3 (0.1-0.6); Monocytes Percent Auto 1.4 % (2.6-8.5); Neutrophils Absolute Auto 9.8 K/mm3 (1.3-6.7); Neutrophils Percent Auto 90.1 % (45.5-73.1); Nucleated Red Blood Cells Absolute Auto 0.1 K/mm3 (0.0-0.012); Nucleated Red Blood Cells Perc 1.1 % (0.0-0.2); Platelet Count Result 67 k/mm3 (150-375); Red Blood Count 2.91 M/mm3 (4.6-6.20); Red Cell Distribution Width 18.1 % (11.5-14.5); White Blood Count 10.9 K/mm3 (4.5-10.0)
[2021-06-13 21:17] LABS: INR 1.1; Prothrombin Time 14.5 Seconds (11.1-14.7)
[2021-06-13 21:18] LABS: Partial Thromboplastin Time 25.7 SECONDS (22.3-36.8)
[2021-06-13 21:19] LABS: Anion Gap 13 mmol/L (8-16); Blood Urea Nitrogen 61 mg/dL (9-20); Carbon Dioxide 11 mmol/L (22-30); Chloride 115 mmol/L (98-107); Estimated CRCL calculation 10 ml/min; Estimated Glomerular Filt Rate 9; Glucose 266 mg/dL (65-110); Ovalocytes 1+ (NORMAL); Platelet Estimate Decreased (Adequate); Potassium 4.7 mmol/L (3.4-5.0); Sodium 139 mmol/L (137-145)
[2021-06-13 21:31] LABS: Troponin I 0.015 ng/mL (0.000-0.034)
[2021-06-13 21:58] VITALS: O2SAT 100
--- NOTE | 2021-06-13 22:08 | ED.GENADULT ---
HPI - General Adult General Chief complaint: Chest Pain Stated complaint: CP Time Seen by Provider: 06/13/21 21:54 Source: patient History of Present Illness HPI narrative: Patient is a 81 y/o male complaining of mid sternal chest pain starting about 12:00 noon (10 hours ago) today. He describes his pain as a pressure and rates it as 9/10. There is no pain radiation. There is no alleviating or exacerbating factor. Related Data Home Medications Medication Instructions Recorded Confirmed Darzalex 20 mg IV MONTHLY 01/07/20 07/13/20 Pomalyst 4 mg PO HS 01/07/20 07/13/20 tamsulosin 0.4 mg PO DAILY 01/07/20 07/13/20 valacyclovir 500 mg PO DAILY 01/07/20 07/13/20 dexamethasone 4 mg PO FR 01/08/20 07/13/20 Caltrate 600 plus D 1 tablet PO DAILY 04/29/20 07/13/20 furosemide 20 mg PO BID 04/29/20 07/13/20 Allergies Allergy/AdvReac Type Severity Reaction Status Date / Time codeine AdvReac Confusion Verified 04/29/20 05:58 hydrocodone AdvReac Nausea and Verified 06/13/21 22:04 Vomiting Review of Systems Constitutional: Constitutional: Denies chills, Denies fever(s), Denies headache(s) and Denies weakness Eyes: Eyes: Denies blurry vision ENT: Denies headache(s) and Denies neck pain Cardiovascular: Cardiovascular: Reports chest pain and Reports dyspnea Respiratory: Respiratory: Denies cough and Reports dyspnea Gastrointestinal: Gastrointestinal: Denies abdominal pain, Denies diarrhea, Denies nausea and Denies vomiting Genitourinary: Genitourinary: Denies hematuria and Denies dysuria Musculoskeletal: Musculoskeletal: Denies back pain and Denies neck pain Neurologic: Denies headache(s) and Denies weakness [facility] Past Medical History Medical History Arthritis of left hand BPH (benign prostatic hyperplasia) Cancer CHF (congestive heart failure) His echo was performed on 01/08/2020. EF was 65-70%. CKD (chronic kidney disease), stage IV Multiple myeloma He had been in remission at 1 time but is not active. The patient takes chemotherapy. Non-ST elevation myocardial infarction (NSTEMI) Shingles now improved and the medication. Vascular dialysis catheter in place Surgical History Surgical History History of arthroscopy of shoulder both shoulders Previous back surgery Stented coronary artery lad x1 Family History Family History Mother Diabetes mellitus Acute myocardial infarction Father Lung cancer Social History Social History Social History: the patient has 3 children. He lives with his . He dominates her to be the durable power real estate attorney for healthcare. The patient would like to be a full code. Patient is retired from [email or web address]. The patient is a lifelong nonsmoker. He does use alcohol or marijuana or any illicit drugs. Smoking status: Never smoker Second hand tobacco smoke exposure: No Alcohol intake: never Substance use: never Substance use type: does not use Gender identity (if verbalized by the patient): Male Spiritual care concerns: No Agree to blood products: Yes Exam Const: General: no acute distress and ill appearing Orientation/consciousness: oriented to person, oriented to place, oriented to time and patient oriented x3 HENMT: Head: normocephalic Ears: external ears normal General nose exam: Normal external nose present Eyes: General: appearance normal, both eyes and all related structures Conjunctivae: conjunctivae normal Neck: Neck: normal visual inspection and full ROM Chest: Chest palpation & inspection: normal inspection of the chest and no tenderness Resp: Effort & Inspection: normal respiratory effort Auscultation: clear to auscultation bilaterally Cardio: Rate: regular rate Rhythm: regular rhythm GI: GI Palp: No abdominal t
[2021-06-13 23:35] VITALS: BP 167/86; PULSE 70; RESP 20; O2SAT 99
[2021-06-14] VITALS (17 sets, daily range): BP systolic 142–160; BP diastolic 64–96; PULSE 46–115; RESP 18–22; TEMP 35.9–36.6; O2SAT 97–99; BMI 21.5
--- NOTE | 2021-06-14 | ECHO_ITS ---
Patient Info Name: Jackson Boyer Age: 81 years : 1940 Gender: Male Ht: 72 in Wt: 156 lbs BSA: 1.89 m2 HR: 73 bpm BP: 160 / 83 mmHg Heart Rhythm: Sinus Rhythm Technical Quality: Good Exam Date: 06/14/2021 10:53 AM Exam Location: [facility] Pulmonary Exam Room: [facility] Patient Status: Outpatient Admit Date: 06/14/2021 Staff Ordering Physician: Wilmer Underwood MD Engineer [employer]: Felicitas Braun RDCS Attending Provider: Wilmer Underwood MD Referring Physician: Kj KIM; Exam Type: CA echo doppler color flow Study Info Indications - pleural effusion Complete two-dimensional, color flow and Doppler transthoracic echocardiogram is performed. Summary 1. Complete two-dimensional, color flow and Doppler transthoracic echocardiogram is performed. 2. Left ventricular chamber dimension is mildly enlarged. 3. Left ventricular systolic function is mildly reduced, estimated at 50-55%. 4. There is mildly increased left ventricular wall thickness. 5. The left ventricular diastolic function is grade I diastolic dysfunction. 6. There is mild to moderate aortic valve regurgitation. 7. There is mild mitral valve regurgitation. 8. There is moderate tricuspid valve regurgitation. 9. Severe pulmonary hypertension, estimated pulmonary arterial systolic pressure is 76 mmHg. 10. There is mild pulmonic regurgitation. 11. There is small pericardial effusion. 12. pleural effusion and ascites is seen. Left Ventricle Left ventricular chamber dimension is mildly enlarged. Left ventricular systolic function is mildly reduced, estimated at 50-55%. There is mildly increased left ventricular wall thickness. The left ventricular diastolic function is grade I diastolic dysfunction. Right Ventricle Right ventricular chamber dimension is normal. Right ventricular systolic function is normal. Left Atria Left atrial chamber dimension is moderately enlarged. Right Atria Right atrial chamber dimension is mildly enlarged. Atrial Septum Intact interatrial septum visualized by color flow imaging. Aortic Valve The aortic valve is trileaflet. There is mild aortic valve sclerosis. There is no aortic valve stenosis. There is mild to moderate aortic valve regurgitation. Pulmonic Valve The pulmonic valve is normal. There is no pulmonic valve stenosis. There is mild pulmonic regurgitation. Mitral Valve The mitral valve has thickened leaflets. There is no mitral valve stenosis. There is mild mitral valve regurgitation. Tricuspid Valve The tricuspid valve leaflets are normal. There is no significant tricuspid valve stenosis. There is moderate tricuspid valve regurgitation. Severe pulmonary hypertension, estimated pulmonary arterial systolic pressure is 76 mmHg. Pericardium/Pleural The pericardium appears thickened pericardium. There is small pericardial effusion. pleural effusion and ascites is seen. Inferior Vena Cava Dilated inferior vena cava with <50% collapse upon inspiration consistent with elevated right atrial pressure, 15 mmHg. Aorta The aortic root size at the sinus of Valsalva is normal. The prox ascending aorta size is normal. Left Ventricular Outflow Tract Name Value Normal LVOT 2D
[2021-06-14 00:24] LABS: Troponin I 0.024 ng/mL (0.000-0.034)
--- NOTE | 2021-06-14 01:15 | PC.NURSE ---
Called lab and spoke to Cherry to add on BNP
[2021-06-14 01:47] LABS: NT Pro B Type Natriuretic Pept 23600 pg/mL (5-100)
--- NOTE | 2021-06-14 02:22 | PM.IMHP ---
H&P: HPI History of Present Illness Date/Time: 06/14/21 02:22 Chief Complaint: Shortness of breath Narrative: This is a 81-year-old male with past medical history significant for multiple myeloma has never achieved remission, chronic kidney disease, hypertension. Patient is currently undergoing chemotherapy for his multiple myeloma. He comes in today after he had his chemotherapy treatment a day before due to worsening shortness of breath with the in 20 ft distance in the house which he is usually capable of doing he noticed that he was not able to do his usual activities without getting very short of breath and presented to the emergency room. He also complains of chest pain which is localized to the right base with radiates ortiz around to the back on related to inspiration. Patient was found to have bilateral pleural effusions on preliminary workup troponin was nondetected. Patient denies any fevers ,any rigors, any chills, any cough, any sputum production, no nausea ,no vomiting ,no abdominal pain ,no diarrhea ,no pain or burning with urination he has had poor appetite. Review of Systems Review of Systems: Worsening shortness of breath Constitutional: Constitutional: Denies chills, Reports fatigue, Denies fever(s), Reports lethargy, Denies malaise, Denies night sweats, Reports poor appetite and Denies weakness Eyes: Eyes: Denies change in vision ENT: Denies dysphagia, Denies nasal congestion, Denies nasal discharge, Denies nasal obstruction and Denies odynophagia Cardiovascular: Cardiovascular: Denies chest pain at rest, Denies rapid heart rate, Denies edema, Denies irregular heart rhythm, Denies lightheadedness, Denies radiating jaw, neck or arm pain, Denies palpitations, Reports dyspnea, Reports dyspnea on exertion and Denies orthopnea Respiratory: Respiratory: Denies chest congestion, Denies cough, Denies excessive phlegm production, Reports dyspnea on exertion and Denies wheezing Gastrointestinal: Gastrointestinal: Denies abdominal pain, Denies nausea and Denies vomiting Genitourinary: Genitourinary: Reports no additional male genitourinary complaints Musculoskeletal: Musculoskeletal: Reports no additional musculoskeletal complaints Integumentary/Breasts: Skin/Breast: Reports system reviewed and no additional complaints, except as docu Neurologic: Reports system reviewed and no additional complaints, except as documented Psychiatric: Psychiatric: Reports no additional psychiatric complaints Endocrine: Endocrine: Reports no additional endocrine complaints Hematologic/Lymphatic: Hematologic/Lymphatic: Reports no additional hematologic/lymphatic complaints Allergic/Immunologic: Allergic/Immunologic: Reports no additional allergic/immunologic complaints [facility] Past Medical History Medical History Arthritis of left hand BPH (benign prostatic hyperplasia) Cancer CHF (congestive heart failure) His echo was performed on 01/08/2020. EF was 65-70%. CKD (chronic kidney disease), stage IV Multiple myeloma He had been in remission at 1 time but is not active. The patient takes chemotherapy. Non-ST elevation myocardial infarction (NSTEMI) Shingles now improved and the medication. Vascular dialysis catheter in place Surgical History Surgical History History of arthroscopy of shoulder both shoulders Previous back surgery Stented coronary artery lad x1 Family History Family History Mother Diabetes mellitus Acute myocardial infarction Father Lung cancer Social History Social History Social History: the patient has 3 children. He lives with his . He dominates her to be the durable power research attorney for healthcare. The patient would like to be a full code. Patient is retired from [email or web address]. The patient is a lif
--- NOTE | 2021-06-14 02:25 | ADMGEN ---
This patient, Jackson Boyer, was admitted to IMU Room 205-01. Patient/family oriented to hospital policies and general routines including ID bracelet, bed and alarms, visiting hours, pain management, procedures, bathroom and other care routines, personal items, smoking policy, room service/diet, and visiting hours. Information on how to activate the Rapid Response Team has been discussed. Patient/Family are encouraged to report perceived risks to care and to ask questions if they do not understand what they are told or what they should do.
[2021-06-14 05:21] LABS: Troponin I 0.031 ng/mL (0.000-0.034)
--- NOTE | 2021-06-14 07:48 | PM.IMPN ---
Progress Note: A&P Assessment and Plan (1) SOB (shortness of breath): Code(s): R06.02 - Shortness of breath Status: Acute Assessment and Plan: presenting complaint, subjective SOB but not hypoxic unclear etiology, noted pt has been started on broad spectrum abx incl [place]anc[place] [id number], though should be noted pt has advanced ckd in setting of multiple myeloma echo & CT high contrast are pending CXR does look edematous, but will correlate with physical exam for need for diuresis there is a small pleural effusion on left side, but may be related to fluid If symptoms not improving with diuresis +/- abx, may need neb treatments & pulm consult as necessary (2) CKD (chronic kidney disease): Qualifiers: Chronic kidney disease stage: unspecified stage Qualified Code(s): N18.9 - Chronic kidney disease, unspecified Code(s): N18.9 - Chronic kidney disease, unspecified Status: Acute Assessment and Plan: related to multiple myeloma most likely cause of nongap acidosis with bicarb to 11 - pt may benefit from bicarb supplement outpatient? also most likely cause of normocytic anemia, along with multiple myeloma nephrology is on consult, appreciate further recommendations (3) Multiple myeloma: Qualifiers: Multiple myeloma remission status: not in remission Qualified Code(s): C90.00 - Multiple myeloma not having achieved remission Code(s): C90.00 - Multiple myeloma not having achieved remission Status: Chronic Assessment and Plan: Undergoing chemotherapy Follow-up in outpatient setting Supportive care Additional Plan follow chest ct & echo correlate bnp & pl effusions with physical exam - may need to add diuresis evaluate necessity of antibiotics nephro consult has been ordered overnight Time Spent With Patient Time with patient: less than 15 minutes Subjective Date/time seen: 06/14/21 07:48 still some subjective sob no fevers or chills Review of Systems Review of Systems: All systems reviewed & are unremarkable except as noted in HPI and below Exam Const: General: no acute distress Neck: Neck: no JVD Resp: Effort & Inspection: normal respiratory effort Other: some diffuse crackles Cardio: Rate: regular rate Rhythm: regular rhythm Objective Data Vital Signs Vital Signs: Vital Signs - 24 hr 06/13/21 20:54 06/13/21 21:58 06/13/21 23:35 Temperature 97.4 F L Pulse Rate 92 70 Respiratory Rate 20 20 Blood Pressure 149/68 H 167/86 H Pulse Oximetry 98 100 99 06/14/21 00:41 06/14/21 02:31 06/14/21 04:00 Temperature 97.9 F 97.9 F Pulse Rate 104 H 115 H 110 H Respiratory Rate 22 H 22 H 20 Blood Pressure 142/69 H 159/93 H 160/83 H Pulse Oximetry 98 97 97 06/14/21 06:00 Temperature Pulse Rate 73 Respiratory Rate Blood Pressure Pulse Oximetry Intake/Output Intake/Output: Intake & Output 06/11/21 06/12/21 06/13/21 06/14/21 23:59 23:59 23:59 23:59 Intake Total 100 Output Total 100 Balance 0 Meds/Results Medications: Active Medications Generic Name Dose Route Start Last Admin Trade Name Freq PRN Reason Stop Dose Admin Dexamethasone 4 mg 06/16/21 08:00 Dexamethasone 4 Mg Tablet PO Fr@0800 [facility] Cefepime HCl 1 gm in 50 mls @ 100 mls/hr 06/15/21 07:00 Maxipime 1 Gm/D5w 50 Ml IVPB Q24H [facility] Azithromycin 500 mg in 250 mls @ 250 mls/hr 06/14/21 03:45 06/14/21 05:02 Zithromax IVPB 250 mls/hr DAILY@0600 [facility] Administration Vancomycin HCl 1,000 mg in 250 mls @ 250 mls/hr 06/14/21 06:14 Vancomycin 1,000 Mg/D5w 250 Ml IVPB PRN PRN Kinetics Consult Metoprolol Tartrate 12.5 mg 06/14/21 09:00 Metoprolol Tartrate 12.5 Mg Tablet PO Q12HR [facility] Tamsulosin HCl 0.4 mg 06/14/21 09:00 Tamsulosin Hcl 0.4 Mg Capsule PO DAILY [facility] Ticagrelor 90 mg 06/14/21 09:00 Ticagrelor 90 Mg Tablet PO Q12HR [facility] Valacyclovir HCl 500
[2021-06-14] MEDS: TAMSULOSIN HCL 0.4 MG CAPSULE PO (09:08)
[2021-06-14] MEDS: valACYclovir HCL 500 MG TABLET PO (09:08)
[2021-06-14] MEDS: METOPROLOL TARTRATE 12.5 MG TABLET PO (09:08)
[2021-06-14] MEDS: TICAGRELOR 90 MG TABLET PO ×2 (09:08→21:26)
[2021-06-14] MEDS: SODIUM BICARBONATE TAB 650 MG TABLET 1300 MG PO ×2 (13:14→17:16)
--- NOTE | 2021-06-14 14:57 | PC.NURSE ---
On 06/14/21, the student, Funmilayo [employer]mon[employer] student, provided care and completed [facility] documentation on this patient. I have reviewed the student's documentation and agree with the findings.
--- NOTE | 2021-06-14 16:12 | PM.CNNEP ---
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), hypertension and CAD may be playing a role as well his creatinine has fluctuated around 4.5 - 6.5mg/dl in the last few years despite advanced kidney disease, has never had issues with uremia, hyperkalemia, acidosis, or volume overload (although he was on diuretics PRN for LE edema) (2) SOB (shortness of breath): Code(s): R06.02 - Shortness of breath Status: Acute Assessment and Plan: presumably secondary to pleural effusions CT of chest results noted follow-up on response to IV diuretics today - would not be opposed to further doses if needed no respiratory distress noted at this time (3) Chest pain: Qualifiers: Chest pain type: unspecified Qualified Code(s): R07.9 - Chest pain, unspecified Code(s): R07.9 - Chest pain, unspecified Status: Acute Assessment and Plan: better at this time related to #2(?) - pleuritic in nature... cardiac etiology less likely (4) Anemia: Code(s): D64.9 - Anemia, unspecified Status: Acute Assessment and Plan: due to a combination of advanced CKD and multiple myeloma will start Epogen as he is on this as an outpatinet follow trend of H/H (5) Multiple myeloma: Qualifiers: Multiple myeloma remission status: not in remission Qualified Code(s): C90.00 - Multiple myeloma not having achieved remission Code(s): C90.00 - Multiple myeloma not having achieved remission Status: Chronic Assessment and Plan: follows with Dr. Nicolas on chemotherapy currently Will continue to follow. History of Present Illness Reason for Consult Consult date: 06/14/21 Reason for consult: chronic renal failure Chief Complaint Chief complaint: Chest Pain, Pleural Effusion History of Present Illness Narrative: 81-year-old male with past medical history as outlined below Who presented to [facility] Emergency room with complaints of worsening shortness of breath The patient states that he has been having shortness of breath for the last few days now which appears to be somewhat worse with exertional activity. He received his chemotherapy the day prior to admission and after that procedure he seemed to feel a shortness of breath was worse than what it had been previously. Initially, as mentioned above, the shortness of breath was just present with exertional activities could. However, now he has noticed that when he is usually doing his usual activities of daily living or just simply walking in general, his shortness of breath seems to be quite noticeable. For all these reasons, he presented to the emergency room for further evaluation Workup and evaluation emergency room demonstrated the patient to be hemodynamically stable with clear subjective symptoms of shortness of breath. He was not hypoxic on evaluation but he also complained of some mild chest pain localized to the right base and worse with inspiration. Subsequent evaluation emergency room demonstrated bilateral pleural effusions which were thought to be part of the reason for his shortness of breath. He gave no symptoms or concerns with regard to fevers, chills, nausea, vomiting, palpitations, dizziness, productive cough, or burning with urination. His only all other symptom was that of poor appetite which he attributes to his chemotherapy. Routine blood test demonstrated labs consistent with his known history of advanced kidney disease as well as anemia. He was admitted the hospital for further evaluation and therapy Since his admission, he has had an echocardiogram that suggests significant pulmonary hypertension and a CT scan of the chest that was ind
[2021-06-14] MEDS: FUROSEMIDE INJ 100 MG/10 ML VIAL 80 MG IV PUSH (17:17)
[2021-06-14 17:31] LABS: NT Pro B Type Natriuretic Pept 26700 pg/mL (5-100)
[2021-06-14 17:38] LABS: EDCOVIDSCREEN Negative (Negative)
[2021-06-14] MEDS: EPOETIN ALFA-EPBX 20,000 UNITS/ML VIAL 20000 UNITS SUB-Q (20:09)
[2021-06-15] VITALS (15 sets, daily range): BP systolic 136–168; BP diastolic 57–83; PULSE 47–104; RESP 16–22; TEMP 36–36.9; O2SAT 96–100
[2021-06-15 05:10] LABS: Hemoglobin 8.4 g/dL (14.0-18.0); Immature Granulocyte Absolute 0.08 K/mm3 (0.00-0.031); Immature Platelet Fraction Pct 5.3 % (0.9-11.2); Lymphocytes Absolute Auto 0.57 K/mm3 (0.9-3.2); Lymphocytes Percent Auto 14.6 % (18.3-44.2); Mean Corpuscular HGB Conc 31.1 g/dl (32-36); Mean Corpuscular Hemoglobin 29.9 pg (26-34); Mean Corpuscular Volume 96.1 fl (80-100); Monocytes Absolute Auto 0.7 K/mm3 (0.1-0.6); Monocytes Percent Auto 17.6 % (2.6-8.5); Neutrophils Absolute Auto 2.6 K/mm3 (1.3-6.7); Neutrophils Percent Auto 65.8 % (45.5-73.1); Nucleated Red Blood Cells Absolute Auto 0.1 K/mm3 (0.0-0.012); Nucleated Red Blood Cells Perc 1.8 % (0.0-0.2); Platelet Count Result 51 k/mm3 (150-375); Red Blood Count 2.81 M/mm3 (4.6-6.20); White Blood Count 3.9 K/mm3 (4.5-10.0)
[2021-06-15 05:35] LABS: Alanine Aminotransferase 19 U/L (4-50); Albumin Level 3.4 g/dL (3.5-5.1); Alkaline Phosphatase 63 U/L (38-126); Anion Gap 12 mmol/L (8-16); Aspartate Amino Transferase 18 U/L (17-59); Bilirubin,Total 0.5 mg/dL (0.2-1.3); Blood Urea Nitrogen 69 mg/dL (9-20); Carbon Dioxide 15 mmol/L (22-30); Chloride 115 mmol/L (98-107); Estimated CRCL calculation 9 ml/min; Estimated Glomerular Filt Rate 8; Glucose 86 mg/dL (65-110); Magnesium 1.9 mg/dL (1.6-2.3); Phosphorus 5.3 mg/dL (2.5-4.5); Potassium 4.5 mmol/L (3.4-5.0); Sodium 142 mmol/L (137-145)
[2021-06-15 06:11] LABS: Vancomycin Random 8.7 ug/mL (10-20)
--- NOTE | 2021-06-15 07:22 | PM.IMPN ---
Progress Note: A&P Assessment and Plan (1) SOB (shortness of breath): Code(s): R06.02 - Shortness of breath Status: Acute Assessment and Plan: presenting complaint, subjective SOB but not hypoxic unclear etiology, noted pt has been started on broad spectrum abx incl [place]anc/[place] [id number] admission, though should be noted pt has advanced ckd in setting of multiple myeloma echo & CT high contrast are pending CXR does look edematous, tried lasix 06/14, some benefit there is a small pleural effusion on left side If symptoms not improving with diuresis +/- abx, may need neb treatments & pulm consult as necessary (2) CKD (chronic kidney disease): Qualifiers: Chronic kidney disease stage: unspecified stage Qualified Code(s): N18.9 - Chronic kidney disease, unspecified Code(s): N18.9 - Chronic kidney disease, unspecified Status: Acute Assessment and Plan: related to multiple myeloma most likely cause of nongap acidosis with bicarb to 11 - pt may benefit from bicarb supplement outpatient? also most likely cause of normocytic anemia, along with multiple myeloma nephrology is on consult, appreciate further recommendations (3) Multiple myeloma: Qualifiers: Multiple myeloma remission status: not in remission Qualified Code(s): C90.00 - Multiple myeloma not having achieved remission Code(s): C90.00 - Multiple myeloma not having achieved remission Status: Chronic Assessment and Plan: Undergoing chemotherapy Follow-up in outpatient setting Supportive care Additional Plan subjective exertional dyspnea, no hypoxia - no clear etiology: pt does not have covid, V/Q scan & Wells score do not support PE & negative LE Dopplers, trops flat, Echo showing only mild G1 disatolic dysfunction with preserved EF, no diagnosed COPD. There is a small left sided pleural effusion seen on cxr and ct, this may potentially be the cause? We are diuresing, and will see if he responds. May consult pulm if pt not responding to diuresis. Of note, he has severe pulmonary hypertension with a PA pressure of 76 mmHg, although this wouldn't really explain acute worsening in last week or so. Also, he is on chemo, unknown regimen, fatigue could be related to chemo or multiple myeloma? Time Spent With Patient Time with patient: less than 15 minutes Subjective Date/time seen: 06/15/21 07:22 improving SOB - but still present currently breathing on room air Review of Systems Review of Systems: All systems reviewed & are unremarkable except as noted in HPI and below Exam Neck: Neck: no JVD Resp: Effort & Inspection: normal respiratory effort Auscultation: clear to auscultation bilaterally Cardio: Rate: regular rate Rhythm: regular rhythm GI: GI Palp: Yes Soft to palpation and No Tenderness to palpation present (GI) Objective Data Vital Signs Vital Signs: Vital Signs - 24 hr 06/14/21 08:00 06/14/21 08:58 06/14/21 10:00 Temperature 97.6 F Pulse Rate 71 69 61 Respiratory Rate 18 Blood Pressure 145/96 H Pulse Oximetry 97 06/14/21 12:00 06/14/21 12:24 06/14/21 14:00 Temperature 97.1 F L Pulse Rate 59 L 65 73 Respiratory Rate 22 H Blood Pressure 153/76 H Pulse Oximetry 98 06/14/21 16:00 06/14/21 17:20 06/14/21 18:00 Temperature 96.6 F L Pulse Rate 67 63 66 Respiratory Rate 20 Blood Pressure 158/68 H Pulse Oximetry 98 06/14/21 19:49 06/14/21 20:00 06/14/21 21:26 Temperature 97.6 F Pulse Rate 64 58 L 47 L Respiratory Rate 20 Blood Pressure 150/64 H Pulse Oximetry 99 06/14/21 22:00 06/15/21 00:00 06/15/21 02:00 Temperature 97.8 F Pulse Rate 46 L 49 L 47 L Respiratory Rate 18 Blood Pressure 157/83 H Pulse Oximetry 96 06/15/21 04:00 06/15/21 06:00 Temperature 97.6 F Pulse Rate 63 75 Respiratory Rate 20 Blood Pressure 149/57 H Pulse Oximetry 97 Intake/Output Intake/Output: Intake & Output 09
[2021-06-15] MEDS: EPOETIN ALFA-EPBX 10,000 UNITS/ML VIAL 10000 UNITS SUB-Q (09:07)
[2021-06-15] MEDS: SODIUM BICARBONATE TAB 650 MG TABLET 1300 MG PO ×2 (09:08→17:05)
[2021-06-15] MEDS: valACYclovir HCL 500 MG TABLET PO (09:08)
[2021-06-15] MEDS: TAMSULOSIN HCL 0.4 MG CAPSULE PO (09:08)
[2021-06-15] MEDS: TICAGRELOR 90 MG TABLET PO (09:08)
[2021-06-15] MEDS: METOPROLOL TARTRATE 12.5 MG TABLET PO ×2 (09:10→20:41)
--- NOTE | 2021-06-15 15:14 | PM.PNNEP ---
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), hypertension and CAD may be playing a role as well his creatinine has fluctuated around 4.5 - 6.5mg/dl in the last few years despite advanced kidney disease, has never had issues with uremia, hyperkalemia, acidosis, or volume overload (although he was on diuretics PRN for LE edema) (2) SOB (shortness of breath): Code(s): R06.02 - Shortness of breath Status: Acute Assessment and Plan: presumably secondary to pleural effusions CT of chest results noted s/p IV diuretics yesterday - need further doses(?) no respiratory distress noted at this time; no evidence of hypoxia V/Q scan with intermediate probablility... (3) Metabolic acidosis: Code(s): E87.2 - Acidosis Status: Acute Assessment and Plan: due to advanced CKD (although was not an issue in the past) started on oral sodium bicarbonate to compensate (4) Chest pain: Qualifiers: Chest pain type: unspecified Qualified Code(s): R07.9 - Chest pain, unspecified Code(s): R07.9 - Chest pain, unspecified Status: Acute Assessment and Plan: better at this time related to #2(?) - pleuritic in nature... cardiac etiology less likely (5) Anemia: Code(s): D64.9 - Anemia, unspecified Status: Acute Assessment and Plan: due to a combination of advanced CKD and multiple myeloma started on Epogen as he is on this as an outpatient follow trend of H/H (6) Multiple myeloma: Qualifiers: Multiple myeloma remission status: not in remission Qualified Code(s): C90.00 - Multiple myeloma not having achieved remission Code(s): C90.00 - Multiple myeloma not having achieved remission Status: Chronic Assessment and Plan: follows with Dr. Nicolas on chemotherapy currently Will continue to follow. Subjective Date/time seen: 06/15/21 15:14 Reasonable response to IV diuretics yesterday but he is not sure if it really helped his breathing; no apparent distress voiced at the time of my visit; no issues/events overnight. Exam Narrative: General: WD/WN male in NAD Heart: normal S1 and S2; no rub Lungs: clear anteriorly; decreased at bases Abdomen: soft, nontender, nondistended, positive bowel sounds Extremities: no cyanosis or clubbing; no edema Skin: warm and dry Objective Data Vital Signs Vital Signs: Vital Signs Temp Pulse Resp BP Pulse Ox 06/15/21 12:00 36.2 C L 61 22 H 136/74 99 06/15/21 10:00 58 L 06/15/21 09:10 55 L 06/15/21 08:00 36.1 C L 55 L 18 151/64 H 100 06/15/21 06:00 75 06/15/21 04:00 36.4 C 63 20 149/57 H 97 06/15/21 02:00 47 L 06/15/21 00:00 36.6 C 49 L 18 157/83 H 96 06/14/21 22:00 46 L 06/14/21 21:26 47 L 06/14/21 20:00 58 L 06/14/21 19:49 36.4 C 64 20 150/64 H 99 06/14/21 18:00 66 06/14/21 17:20 35.9 C L 63 20 158/68 H 98 Intake/Output Intake/Output: Intake & Output 06/12/21 06/13/21 06/14/21 06/15/21 23:59 23:59 23:59 23:59 Intake Total 1490 640 Output Total 300 2700 Balance 1190 -2060 Meds/Results Medications: Laboratory Tests 06/15/21 04:23 06/15/21 04:23 Microbiology 06/14/21 04:08 Blood Blood Culture - Preliminary 06/14/21 04:08 Blood Blood Culture - Preliminary Radiology Results: ITS Impressions Chest X-Ray 06/13/21 21:15 IMPRESSION: Bilateral predominantly lower lung infiltrates and mild pleural effusions, greater on the left Pulmonary Perfusion Imaging 06/14/21 14:52 IMPRESSION: 1. Intermediate probability for pulmonary embolism with small to moderate-sized left pleural effusion but n
[2021-06-15 19:52] LABS: SARS-CoV-2 RNA PCR Negative
[2021-06-15] MEDS: BUMETANIDE INJ 1 MG/4 ML VIAL 1.5 MG IV PUSH (20:38)
[2021-06-15] MEDS: TICAGRELOR 60 MG TABLET PO (21:23)
[2021-06-16] VITALS (13 sets, daily range): BP systolic 150–158; BP diastolic 73–83; PULSE 52–98; RESP 16–20; TEMP 36.4–37; O2SAT 98–100
[2021-06-16 06:16] LABS: Eosinophils Absolute Auto 0.1 K/mm3 (0-0.3); Eosinophils Percent Auto 1.3 % (0-4.4); Hematocrit 27.7 % (42.0-52.0); Immature Granulocyte Absolute 0.08 K/mm3 (0.00-0.031); Immature Granulocyte Percent A 1.7 % (0-0.5); Immature Platelet Fraction Pct 4.6 % (0.9-11.2); Lymphocytes Absolute Auto 0.58 K/mm3 (0.9-3.2); Lymphocytes Percent Auto 12.4 % (18.3-44.2); Mean Corpuscular HGB Conc 32.5 g/dl (32-36); Mean Corpuscular Hemoglobin 30.7 pg (26-34); Mean Corpuscular Volume 94.5 fl (80-100); Monocytes Absolute Auto 0.6 K/mm3 (0.1-0.6); Monocytes Percent Auto 13.1 % (2.6-8.5); Neutrophils Absolute Auto 3.3 K/mm3 (1.3-6.7); Neutrophils Percent Auto 71.5 % (45.5-73.1); Nucleated Red Blood Cells Absolute Auto 0.1 K/mm3 (0.0-0.012); Platelet Count Result 47 k/mm3 (150-375); Red Blood Count 2.93 M/mm3 (4.6-6.20); Red Cell Distribution Width 17.8 % (11.5-14.5); White Blood Count 4.7 K/mm3 (4.5-10.0)
[2021-06-16 06:38] LABS: Alanine Aminotransferase 17 U/L (4-50); Albumin Level 3.3 g/dL (3.5-5.1); Alkaline Phosphatase 66 U/L (38-126); Anion Gap 13 mmol/L (8-16); Aspartate Amino Transferase 17 U/L (17-59); Bilirubin,Total 0.7 mg/dL (0.2-1.3); Blood Urea Nitrogen 72 mg/dL (9-20); Calcium 6.8 mg/dL (8.4-10.2); Carbon Dioxide 16 mmol/L (22-30); Chloride 113 mmol/L (98-107); Estimated CRCL calculation 8 ml/min; Estimated Glomerular Filt Rate 8; Glucose 82 mg/dL (65-110); Magnesium 1.8 mg/dL (1.6-2.3); Phosphorus 5.2 mg/dL (2.5-4.5); Potassium 4.2 mmol/L (3.4-5.0); Sodium 142 mmol/L (137-145)
[2021-06-16 07:10] LABS: Vancomycin Random 12.6 ug/mL (10-20)
[2021-06-16] MEDS: TICAGRELOR 60 MG TABLET PO (08:17)
[2021-06-16] MEDS: SODIUM BICARBONATE TAB 650 MG TABLET 1300 MG PO (08:17)
[2021-06-16] MEDS: METOPROLOL TARTRATE 12.5 MG TABLET PO (08:17)
[2021-06-16] MEDS: DEXAMETHASONE 4 MG TABLET PO (08:18)
[2021-06-16] MEDS: valACYclovir HCL 500 MG TABLET PO (08:18)
[2021-06-16] MEDS: TAMSULOSIN HCL 0.4 MG CAPSULE PO (08:18)
[2021-06-16] MEDS: FUROSEMIDE 40 MG TABLET PO (09:23)
--- NOTE | 2021-06-16 13:56 | P.PNNP_ITS ---
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), hypertension and CAD may be playing a role as well * his creatinine has fluctuated around 4.5 - 6.5mg/dl in the last few years * despite advanced kidney disease, has never had issues with uremia, hyperkalemia, acidosis, or volume overload (although he was on diuretics PRN for LE edema) (2) SOB (shortness of breath): Code(s): R06.02 - Shortness of breath Status: Acute Assessment and Plan: * presumably secondary to pleural effusions * possible infection -- on antibiotics * CT of chest results noted * s/p IV diuretics yesterday - need further doses(?) * no respiratory distress noted at this time; no evidence of hypoxia * V/Q scan with intermediate probability (3) Metabolic acidosis: Code(s): E87.2 - Acidosis Status: Acute Assessment and Plan: * due to advanced CKD (although was not an issue in the past) * started on oral sodium bicarbonate to compensate (4) Chest pain: Qualifiers: Chest pain type: unspecified Qualified Code(s): R07.9 - Chest pain, unspecified Code(s): R07.9 - Chest pain, unspecified Status: Acute Assessment and Plan: * better at this time * related to #2(?) - pleuritic in nature... * cardiac etiology less likely (5) Anemia: Code(s): D64.9 - Anemia, unspecified Status: Acute Assessment and Plan: * due to a combination of advanced CKD and multiple myeloma * started on Epogen as he is on this as an outpatient * follow trend of H/H (6) Multiple myeloma: Qualifiers: Multiple myeloma remission status: not in remission Qualified Code(s): C90.00 - Multiple myeloma not having achieved remission Code(s): C90.00 - Multiple myeloma not having achieved remission Status: Chronic Assessment and Plan: * follows with Dr. Nicolas * on chemotherapy currently Will continue to follow. Subjective Date/time seen: 06/16/21 13:56 Shortness of breath seems to be doing better if not resolved; good urine output in response to diuretic therapy; no apparent issues or problems to report; no issues/events overnight or earlier this AM. Exam Narrative: General: WD/WN male in NAD Heart: normal S1 and S2; no rub Lungs: clear anteriorly; decreased at bases Abdomen: soft, nontender, nondistended, positive bowel sounds Extremities: no cyanosis or clubbing; no edema Skin: warm and dry Objective Data Vital Signs Vital Signs: Vital Signs Temp Pulse Resp BP Pulse Ox 06/16/21 12:44 36.4 C 59 L 20 157/82 H 100 06/16/21 12:00 61 06/16/21 11:13 98 06/16/21 10:00 71 06/16/21 08:00 63 06/16/21 07:33 37.0 C 64 16 150/73 H 99 06/16/21 06:00 61 06/16/21 04:00 52 L 06/16/21 03:31 36.6 C 58 L 18 158/83 H 98 06/16/21 02:00 52 L 06/16/21 00:00 57 L 06/15/21 23:57 36.9 C 58 L 16 168/76 H 100 06/15/21 22:00 51 L 06/15/21 20:41 62 06/15/21 20:00 36.6 C 58 L 16 153/77 H 99 06/15/21 18:00 104 H 06/15/21 16:00
--- NOTE | 2021-06-16 13:56 | PM.PNNEP ---
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), hypertension and CAD may be playing a role as well his creatinine has fluctuated around 4.5 - 6.5mg/dl in the last few years despite advanced kidney disease, has never had issues with uremia, hyperkalemia, acidosis, or volume overload (although he was on diuretics PRN for LE edema) (2) SOB (shortness of breath): Code(s): R06.02 - Shortness of breath Status: Acute Assessment and Plan: presumably secondary to pleural effusions possible infection -- on antibiotics CT of chest results noted s/p IV diuretics yesterday - need further doses(?) no respiratory distress noted at this time; no evidence of hypoxia V/Q scan with intermediate probability (3) Metabolic acidosis: Code(s): E87.2 - Acidosis Status: Acute Assessment and Plan: due to advanced CKD (although was not an issue in the past) started on oral sodium bicarbonate to compensate (4) Chest pain: Qualifiers: Chest pain type: unspecified Qualified Code(s): R07.9 - Chest pain, unspecified Code(s): R07.9 - Chest pain, unspecified Status: Acute Assessment and Plan: better at this time related to #2(?) - pleuritic in nature... cardiac etiology less likely (5) Anemia: Code(s): D64.9 - Anemia, unspecified Status: Acute Assessment and Plan: due to a combination of advanced CKD and multiple myeloma started on Epogen as he is on this as an outpatient follow trend of H/H (6) Multiple myeloma: Qualifiers: Multiple myeloma remission status: not in remission Qualified Code(s): C90.00 - Multiple myeloma not having achieved remission Code(s): C90.00 - Multiple myeloma not having achieved remission Status: Chronic Assessment and Plan: follows with Dr. Nicolas on chemotherapy currently Will continue to follow. Subjective Date/time seen: 06/16/21 13:56 Shortness of breath seems to be doing better if not resolved; good urine output in response to diuretic therapy; no apparent issues or problems to report; no issues/events overnight or earlier this AM. Exam Narrative: General: WD/WN male in NAD Heart: normal S1 and S2; no rub Lungs: clear anteriorly; decreased at bases Abdomen: soft, nontender, nondistended, positive bowel sounds Extremities: no cyanosis or clubbing; no edema Skin: warm and dry Objective Data Vital Signs Vital Signs: Vital Signs Temp Pulse Resp BP Pulse Ox 06/16/21 12:44 36.4 C 59 L 20 157/82 H 100 06/16/21 12:00 61 06/16/21 11:13 98 06/16/21 10:00 71 06/16/21 08:00 63 06/16/21 07:33 37.0 C 64 16 150/73 H 99 06/16/21 06:00 61 06/16/21 04:00 52 L 06/16/21 03:31 36.6 C 58 L 18 158/83 H 98 06/16/21 02:00 52 L 06/16/21 00:00 57 L 06/15/21 23:57 36.9 C 58 L 16 168/76 H 100 06/15/21 22:00 51 L 06/15/21 20:41 62 06/15/21 20:00 36.6 C 58 L 16 153/77 H 99 06/15/21 18:00 104 H 06/15/21 16:00 36.0 C L 68 18 152/65 H 100 06/15/21 14:00 57 L Intake/Output Intake/Output: Intake & Output 06/13/21 06/14/21 06/15/21 06/16/21 23:59 23:59 23:59 23:59 Intake Total 1490 1980 440 Output Total 300 4840 1600 Balance 1190 -1720 1160 Meds/Results Medications: Active Medications Generic Name Dose Route Start Last Admin Trade Name Freq PRN Reason Stop Dose Admin Dexamethasone 4 mg 06/16/21 08:00 06/16/21 08:18 Dexamethasone 4 Mg Tablet PO 4 mg Fr@0800 VIKAS Administration Epoetin Brandon-epbx 10,000 units 06/15/21 09:00 06/15/21 09:07 Epoetin Brandon-Epbx 10,000 Units/Ml Vial SUB-Q 10,000 units [facility]
--- NOTE | 2021-06-16 14:42 | PM.DS ---
DS: Admitting Diagnosis Discharge Date June 16, 2021 Admitting Diagnosis Shortness of breath DS: Discharge Diagnosis Discharge Diagnosis (1) Pulmonary edema: Code(s): J81.1 - Chronic pulmonary edema Status: Acute DS: Summary Hospital Course Hospital Course: Patient is a 81-year-old male with past medical history of multiple myeloma and chronic kidney disease currently undergoing chemotherapy, presenting with shortness of breath over the last few days prior to admission. At baseline, patient does not require supplemental oxygen, and is able to take care of his activities of daily living. However over the last few days, he has noticed that it was difficult for him to get up and walk around. He became dyspnea could easily. While he was here, patient was never hypoxic. He was on room air essentially the whole time. ACS was ruled out with EKG, cardiac enzymes, history. Pulmonary embolism was considered given the underlying malignancy, however Wells score not supportive of PE, CT angio not possible given patient's extensive kidney disease, ventilation perfusion scan showing no overt perfusion defects, and so pulmonary embolism seems to appear unlikely. No history of COPD. Obtain an echo, which showed grade 1 diastolic dysfunction with preserved ejection fraction, and as such, given chest x-ray was supportive of mild pulmonary edema, gave patient 1 shot of IV Lasix, and after this he felt back to his normal self, and was able to move around his room without oxygen, and felt like he was back to his baseline. Will discharge patient home with Lasix. Will need to follow labs as outpatient given he has got CKD already. Close outpatient follow-up with store receiving specialist, and primary care provider. Status at Discharge Functional status at discharge: uses cane/walker Time Spent with Patient Time attestation: Total time spent providing and/or coordinating discharge services: Time spent: Less than 30 minutes Exam Const: General: no acute distress Neck: Neck: no JVD Resp: Effort & Inspection: normal respiratory effort Auscultation: clear to auscultation bilaterally Cardio: Rate: regular rate Rhythm: regular rhythm GI: GI Palp: Yes Soft to palpation and No Tenderness to palpation present (GI) DS: Data Data Completed and Pending Labs on day of discharge: Labs from last 24 hours 06/16/21 06/16/21 06/16/21 05:38 05:38 05:38 WBC 4.7 RBC 2.93 L Hgb 9.0 L Hct 27.7 L MCV 94.5 MCH 30.7 MCHC 32.5 RDW 17.8 H Plt Count 47 L MPV TNP Immature Gran % (Auto) 1.7 H Neut % (Auto) 71.5 Lymph % (Auto) 12.4 L Amador % (Auto) 13.1 H Eos % (Auto) 1.3 Baso % (Auto) 0.0 L Lymph # (Auto) 0.58 L Amador # (Auto) 0.6 Eos # (Auto) 0.1 Baso # (Auto) 0.0 Abs Immat Gran (auto) 0.08 H Absolute Neuts (auto) 3.3 Absolute Nucleated RBC 0.1 H Nucleated RBC % 3.0 H % Immature Plt Fraction 4.6 Sodium 142 Potassium 4.2 Chloride 113 H Carbon Dioxide 16 L Anion Gap 13 BUN 72 H Creatinine 6.70 H Estim Creat Clear Calc 8 Estimated GFR 8 L Glucose 82 Calcium 6.8 L Phosphorus 5.2 H Magnesium 1.8 Total Bilirubin 0.7 AST 17 ALT 17 Alkaline Phosphatase 66 Total Protein 5.0 L Albumin 3.3 L Random Vancomycin 12.6 SARS-CoV-2 RNA (RT-PCR) 06/14/21 16:45 WBC RBC Hgb Hct MCV MCH MCHC RDW Plt Count MPV Immature Gran % (Auto) Neut % (Auto) Lymph % (Auto) Amador % (Auto) Eos % (Auto) Baso % (Auto) Lymph # (Auto) Amador # (Auto) Eos # (Auto) Baso # (Auto) Abs Immat Gran (auto) Absolute Neuts (auto) Absolute Nucleated RBC Nucleated RBC % % Immature Plt Fraction Sodium Potassium Chloride Carbon Dioxide Anion Gap BUN Creatinine Estim Creat Clear Calc Estimated GFR Glucose Calcium Phosphorus Magnesium Total Bilirubin AST ALT Alkaline Phosphatase Total
== END 2021-06-16 16:41 | disposition home or self-care (01) | DRG 292 ==
LOC: ANHED 06-14 01:53 → ANHIMU 06-14 01:56
PROVIDERS: Admitting Provider Internal Medicine; Emergency Provider Emergency Medicine; PCP Family Medicine; Visit Provider Internal Medicine
DX: I13.2 Hypertensive heart and chronic kidney disease with heart failure and with stage 5 chronic kidney disease, or end stage renal disease (principal); C90.00 Multiple myeloma not having achieved remission; N18.5 Chronic kidney disease, stage 5; E87.2 Acidosis; I50.32 Chronic diastolic (congestive) heart failure; I27.20 Pulmonary hypertension, unspecified; Z20.822 Contact with and (suspected) exposure to COVID-19; D63.8 Anemia in other chronic diseases classified elsewhere; N40.0 Benign prostatic hyperplasia without lower urinary tract symptoms; I25.10 Atherosclerotic heart disease of native coronary artery without angina pectoris; I25.2 Old myocardial infarction; Z79.82 Long term (current) use of aspirin; Z79.899 Other long term (current) drug therapy
CPT/HCPCS: 36415; 71045; 71046; 71250; 78580; 80048; 80053; 80202; 83735; 83880; 84100; 84484; 85025; 85055; 85610; 85730; 87040; 87426; 93005; 93306; 93970; 96365; 96366; 96368; 96372; 96375; 96376; 99285; A9270; A9540; C9803; G0378; J0456; J0692; J1940; J3370; J8540; Q5106; U0003; U0005

== ENCOUNTER 2021-06-22 11:45 | Outpatient (CLI) | payer MEDICARE, BC, SELFPAY ==
[2021-06-22 12:53] LABS: Albumin Level 3.8 g/dL (3.5-5.1); Anion Gap 13 mmol/L (8-16); Blood Urea Nitrogen 77 mg/dL (9-20); Calcium 6.8 mg/dL (8.4-10.2); Carbon Dioxide 19 mmol/L (22-30); Chloride 107 mmol/L (98-107); Estimated Glomerular Filt Rate 9; Glucose 160 mg/dL (65-110); Phosphorus 6.4 mg/dL (2.5-4.5); Potassium 4.1 mmol/L (3.4-5.0); Sodium 139 mmol/L (137-145)
[2021-06-22 12:54] LABS: Creatinine Urine 47.6 mg/dL; Total Protein Urine Random 107 mg/dL; Ur Ttl Prot Creatinine Ratio 2.25 mg/mg (0-0.20)
[2021-06-22 13:02] LABS: Parathyroid Intact 683.2 pg/mL (7.5-53.5)
[2021-06-22 13:32] LABS: Vitamin D 25 Hydroxy 36.3 ng/mL
== END 2021-06-22 11:46 | disposition home or self-care (01) ==
LOC: ANHLAB 11:49
PROVIDERS: PCP Family Medicine; Visit Provider Internal Medicine Nephrology
DX: N18.5 Chronic kidney disease, stage 5 (principal); C90.00 Multiple myeloma not having achieved remission; R80.8 Other proteinuria
CPT/HCPCS: 36415; 80069; 82306; 82570; 83970; 84156

== ENCOUNTER 2021-12-12 10:18 | Outpatient (CLI) | payer MEDICARE, BC, SELFPAY ==
--- NOTE | ~2021-12-12 | XR_ITS ---
XR chest 2V 12/12/2021 10:49 Indication: Shortness of breath. Procedure: PA and lateral views of the chest Comparison: Comparison to multiple prior studies sequentially, with oldest reviewed study dated 2019. Findings: Moderate left pleural effusion with patchy left-sided airspace disease which may represent atelectasis or pneumonia. Right lung clear. Stable cardiomediastinal silhouette. No pneumothorax. The re is apical pleural thickening/scarring. Impression: 1: Stable moderate left pleural effusion and patchy left-sided airspace disease which may represent a telectasis and/or pneumonia. Reviewed, dictated and finalized at location B. Impression: 1: Stable moderate left pleural effusion and patchy left-sided airspace disease which may represent atelectasis and/or pneumonia.
== END 2021-12-12 10:19 | disposition home or self-care (01) ==
PROVIDERS: PCP Family Medicine; Visit Provider Internal Medicine Nephrology
DX: R06.02 Shortness of breath (principal); J90 Pleural effusion, not elsewhere classified
CPT/HCPCS: 71046

== ENCOUNTER 2021-12-12 13:07 | Emergency (ER) | payer MEDICARE, BC, SELFPAY ==
[2021-12-12] VITALS (18 sets, daily range): BP systolic 116–161; BP diastolic 58–68; PULSE 0–116; RESP 11–27; TEMP 36.7–37; O2SAT 97–100
--- NOTE | 2021-12-12 13:11 | ECG_ITS ---
Measurements Intervals [place] Rate: 98 P: 17 RI: 152 QRS: -38 QRSD: 86 T: 83 QT: 367 QTc: 470 Interpretive Statements SINUS RHYTHM MARKED LEFT AXIS DEVIATION [QRS AXIS < -30] NONSPECIFIC T-WAVE ABNORMALITY COMPARED TO ECG 06/13/2021 20:48:34 T-WAVE ABNORMALITY NOW PRESENT Electronically Signed On 12-12-2021 18:39:04 CDT by Swathi Glez M.D.
[2021-12-12 13:28] LABS: Basophils Percent Auto 0.2 % (0.2-1.2); Eosinophils Absolute Auto 0.1 K/mm3 (0-0.3); Eosinophils Percent Auto 1.6 % (0-4.4); Hematocrit 26.1 % (42.0-52.0); Hemoglobin 8.4 g/dL (14.0-18.0); Immature Granulocyte Percent A 1.7 % (0-0.5); Lymphocytes Absolute Auto 1.32 K/mm3 (0.9-3.2); Lymphocytes Percent Auto 22.8 % (18.3-44.2); Mean Corpuscular HGB Conc 32.2 g/dl (32-36); Mean Corpuscular Hemoglobin 32.6 pg (26-34); Mean Corpuscular Volume 101.2 fl (80-100); Mean Platelet Volume 10.1 fl (7.4-10.4); Monocytes Absolute Auto 0.7 K/mm3 (0.1-0.6); Monocytes Percent Auto 12.5 % (2.6-8.5); Neutrophils Absolute Auto 3.5 K/mm3 (1.3-6.7); Neutrophils Percent Auto 61.2 % (45.5-73.1); Platelet Count Result 157 k/mm3 (150-375); Red Blood Count 2.58 M/mm3 (4.6-6.20); Red Cell Distribution Width 16.3 % (11.5-14.5); White Blood Count 5.8 K/mm3 (4.5-10.0)
[2021-12-12 13:38] LABS: Alanine Aminotransferase 17 U/L (4-50); Albumin Level 3.6 g/dL (3.5-5.1); Alkaline Phosphatase 81 U/L (38-126); Anion Gap 14 mmol/L (8-16); Aspartate Amino Transferase 26 U/L (17-59); Bilirubin,Total 0.7 mg/dL (0.2-1.3); Blood Urea Nitrogen 56 mg/dL (9-20); Calcium 5.2 mg/dL (8.4-10.2); Carbon Dioxide 17 mmol/L (22-30); Chloride 103 mmol/L (98-107); Estimated CRCL calculation 8 ml/min; Estimated Glomerular Filt Rate 8; Glucose 138 mg/dL (65-110); Potassium 4.1 mmol/L (3.4-5.0); Sodium 134 mmol/L (137-145)
--- NOTE | 2021-12-12 14:48 | ED.GENADULT ---
HPI - General Adult General Chief complaint: Shortness of Breath/Dyspnea Stated complaint: Shortness of breath Time Seen by Provider: 12/12/21 13:46 History of Present Illness HPI narrative: Patient with history of chronic kidney disease and multiple myeloma presented to the emergency department for evaluation of worsening shortness of breath. Patient does have close follow-up with nephrology due to his chronic kidney disease. Patient does have an elevated creatinine but still makes urine and is not currently on dialysis. Patient does take Lasix a few times a week. Patient did call his conservator artifacts and was instructed to take additional Lasix. Patient did take an initial Lasix this morning prior to arrival and has had increased and urine production. Patient states he does not have any shortness of breath at rest on his initial evaluation. Patient states that her shortness of breath is worsened with exertion. Patient denies any chest pain at this time. Related Data Home Medications Medication Instructions Recorded Confirmed Darzalex 20 mg IV MONTHLY 01/07/20 06/14/21 tamsulosin 0.4 mg PO DAILY 01/07/20 06/14/21 valacyclovir 500 mg PO DAILY 01/07/20 06/14/21 dexamethasone 4 mg PO FR 01/08/20 06/14/21 Caltrate 600 plus D 1 tablet PO DAILY 04/29/20 06/14/21 Brilinta 60 mg PO Q12H 06/15/21 06/15/21 furosemide [Lasix] 40 mg DAILY 12/12/21 Allergies Allergy/AdvReac Type Severity Reaction Status Date / Time codeine AdvReac Confusion Verified 12/12/21 13:20 hydrocodone AdvReac Nausea and Verified 12/12/21 13:20 Vomiting Review of Systems Review of Systems: CONSTITUTIONAL: Denies fever, chills, or sweats. EYES: Denies visual changes, redness, or discharge. ENT: Denies rhinorrhea, congestion, sore throat, or otalgia. CARDIOVASCULAR: Denies chest pain, palpitations, or edema. RESPIRATORY: Denies cough. Did have some worsening exertional shortness of breath today. GASTROINTESTINAL: Denies abdominal pain, nausea, vomiting, or diarrhea. GENITOURINARY: Denies dysuria or hematuria. SKIN: Denies rash or itching. MUSCULOSKELETAL: Denies back pain, joint pain, or myalgia. NEUROLOGIC: Denies headache, numbness, or weakness. PSYCHIATRIC: Denies anxiety or depression. [facility] Past Medical History Medical History Arthritis of left hand BPH (benign prostatic hyperplasia) Cancer CHF (congestive heart failure) His echo was performed on 01/08/2020. EF was 65-70%. CKD (chronic kidney disease), stage IV Multiple myeloma He had been in remission at 1 time but is not active. The patient takes chemotherapy. Non-ST elevation myocardial infarction (NSTEMI) Shingles now improved and the medication. Vascular dialysis catheter in place Surgical History Surgical History History of arthroscopy of shoulder both shoulders Previous back surgery Stented coronary artery lad x1 Family History Family History Mother Diabetes mellitus Acute myocardial infarction Father Lung cancer Social History Social History Social History: the patient has 3 children. He lives with his . 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 The patient would like to be a full code. Patient is retired from [employer]. The patient is a lifelong nonsmoker. He does use alcohol or marijuana or any illicit drugs. Smoking status: Never smoker Second hand tobacco smoke exposure: No Alcohol intake: never Substance use: never Substance use type: does not use Gender identity (if verbalized by the patient): Male Spiritual care concerns: Yes Agree to blood products: Yes Exam Narrative: APPEARANCE: Well appearing, no pain, no distress, well-nourished. HEAD: normocephalic, atraumatic. EYES: PERRLA/EOMI, conjuncti
--- NOTE | 2021-12-12 16:16 | PC.NURSE ---
Patient walked with pulse oximetry. Stayed 97-98% throughout.
== END 2021-12-12 17:25 | disposition home or self-care (01) ==
PROVIDERS: Emergency Medicine; Emergency Provider Emergency Medicine; PCP Family Medicine
DX: R06.00 Dyspnea, unspecified (principal); N18.4 Chronic kidney disease, stage 4 (severe); I50.9 Heart failure, unspecified; C90.00 Multiple myeloma not having achieved remission; N40.0 Benign prostatic hyperplasia without lower urinary tract symptoms; I25.2 Old myocardial infarction; M19.042 Primary osteoarthritis, left hand; Z95.5 Presence of coronary angioplasty implant and graft; R94.31 Abnormal electrocardiogram [ECG] [EKG]
CPT/HCPCS: 36415; 71046; 80053; 85025; 93005; 99283

== ENCOUNTER 2022-01-31 05:08 | Inpatient (IN) | payer MEDICARE, BC, SELFPAY ==
[2022-01-31] VITALS (14 sets, daily range): BP systolic 97–140; BP diastolic 48–83; PULSE 70–98; RESP 14–20; TEMP 36–37; O2SAT 96–100; BMI 17.8
--- NOTE | 2022-01-31 | ECHO_ITS ---
Patient Info Name: Jackson Boyer Age: 81 years : 1940 Gender: Male Ht: 72 in Wt: 131 lbs BSA: 1.72 m2 HR: 78 bpm BP: 97 / 48 mmHg Heart Rhythm: Sinus Rhythm Technical Quality: Good Exam Date: 01/31/2022 11:44 AM Exam Location: [facility] Pulmonary Exam Room: [facility] Patient Status: Inpatient Admit Date: 01/31/2022 Staff Ordering Physician: Shila Moseley PA-C Recordak Operator: Felicitas Braun RDCS Attending Provider: Shila Moseley PA-C Exam Type: CA echo doppler color flow Study Info Indications - CAD NSTEMI CKD CABG CHEST PAIN Complete two-dimensional, color flow and Doppler transthoracic echocardiogram is performed. Summary 1. Complete two-dimensional, color flow and Doppler transthoracic echocardiogram is performed. 2. Left ventricular chamber dimension is normal. 3. Left ventricular systolic function is normal, estimated at 65-70%. 4. There is mildly increased left ventricular wall thickness. 5. The left ventricular diastolic function is grade I diastolic dysfunction. 6. Left atrial chamber dimension is mildly enlarged. 7. Right atrial chamber dimension is mildly enlarged. 8. There is mild aortic valve regurgitation. 9. The mitral valve has thickened leaflets and posterior prolapse. 10. There is mild mitral valve regurgitation. 11. There is mild tricuspid valve regurgitation. 12. Mild pulmonary hypertension, estimated pulmonary arterial systolic pressure is 37 mmHg. 13. There is mild pulmonic regurgitation. Left Ventricle Left ventricular chamber dimension is normal. Left ventricular systolic function is normal, estimated at 65-70%. There is mildly increased left ventricular wall thickness. The left ventricular diastolic function is grade I diastolic dysfunction. Right Ventricle Right ventricular chamber dimension is normal. Right ventricular systolic function is normal. Left Atria Left atrial chamber dimension is mildly enlarged. Right Atria Right atrial chamber dimension is mildly enlarged. Atrial Septum Intact interatrial septum visualized by color flow imaging. Aortic Valve The aortic valve is trileaflet. There is mild aortic valve sclerosis. There is no aortic valve stenosis. There is mild aortic valve regurgitation. Pulmonic Valve The pulmonic valve is normal. There is no pulmonic valve stenosis. There is mild pulmonic regurgitation. Mitral Valve The mitral valve has thickened leaflets and posterior prolapse. There is no mitral valve stenosis. There is mild mitral valve regurgitation. Tricuspid Valve The tricuspid valve leaflets are normal. There is no significant tricuspid valve stenosis. There is mild tricuspid valve regurgitation. Mild pulmonary hypertension, estimated pulmonary arterial systolic pressure is 37 mmHg. Pericardium/Pleural The pericardium appears normal. There is no pericardial effusion. Inferior Vena Cava Normal inferior vena cava with >50% collapse upon inspiration consistent with normal right atrial pressure, 10 mmHg. Aorta The aortic root size at the sinus of Valsalva is normal. Left Ventricular Outflow Tract Name Value Normal LVOT 2D LVOT Diameter 2.0 cm LVOT Doppler -
--- NOTE | ~2022-01-31 | XR_ITS ---
EXAMINATION: XR chest 1V portable DATE: 01/31/2022 05:38 INDICATION: Weakness and shortness of breath TECHNIQUE: frontal view of the chest was obtained. COMPARISON: Chest radiograph dated 12/12/2021 FINDINGS: Mild biapical pleural-parenchymal scarring. Persistent small to moderate left pleural effusion with p atchy consolidation in the left lower lung zone consistent with atelectasis and/or pneumonia. Heart s ize is normal. Calcified right hilar lymph nodes consistent with old granulomatous disease. Visualize d bones and soft tissues are unremarkable. IMPRESSION: 1. Patchy consolidation in the left lower lung zone which could represent atelectasis and/or pneumoni a. 2. Persistent unilateral small to moderate left pleural effusion. Reviewed, dictated and finalized at location A. IMPRESSION: 1. Patchy consolidation in the left lower lung zone which could represent atele ctasis and/or pneumonia. 2. Persistent unilateral small to moderate left pleural effusion.
--- NOTE | ~2022-01-31 | XR_ITS ---
EXAMINATION: XR chest port-a-cath/central DATE: 02/02/2022 12:01 INDICATION: Duraflow catheter insertion TECHNIQUE: frontal view of the chest was obtained. COMPARISON: Chest radiograph dated 01/31/2022 FINDINGS: Interval placement of a likely tunneled large-bore dual-lumen right internal jugular central venous c atheter with distal tip at the high right atrium. Persistent hazy airspace opacities throughout the l eft hemithorax with more dense consolidation in the left lower lung zone consistent with small to mod erate-sized posterior layering left pleural effusion and associated left basilar atelectasis or pneum onia. No pneumothorax. The cardiomediastinal silhouette is normal. Multiple gas-filled loops of bowel in the visualized abdomen. IMPRESSION: 1. Right internal jugular central venous catheter with distal tip in the high right atrium. 2. Persistent small to moderate-sized left pleural effusion with left basilar atelectasis and/or pneu monia. Reviewed, dictated and finalized at location A. IMPRESSION: 1. Right internal jugular central venous catheter with distal tip in the high r ight atrium. 2. Persistent small to moderate-sized left pleural effusion with left basilar a telectasis and/or pneumonia.
--- NOTE | ~2022-01-31 | XR_ITS ---
EXAMINATION: XR fl guide central line place DATE: 02/02/2022 12:41 INDICATION: Central line placement TECHNIQUE: Single fluoroscopic image of the central chest was obtained during procedure performed by Dr. Guerra. Radiologist was not present for the imaging or procedure. The amount of fluoroscopy time us ed during this procedure was 1.3 minutes. FINDINGS: Hemostat indicates the tip of a dual-lumen central venous catheter which extends caudally a long the superior vena cava with distal tip likely near the superior cavoatrial junction. Evaluation is significantly limited by significant motion blurring on the provided images. IMPRESSION: 1. Fluoroscopy utilized during central venous catheter placement. See procedure report and follow-up chest radiograph for further detail. Reviewed, dictated and finalized at location A.
--- NOTE | 2022-01-31 05:14 | ECG_ITS ---
Measurements Intervals [place] Rate: 87 P: 40 IL: 146 QRS: -43 QRSD: 97 T: 113 QT: 386 QTc: 467 Interpretive Statements SINUS RHYTHM VENTRICULAR PREMATURE COMPLEX LEFT AXIS DEVIATION BORDERLINE R WAVE PROGRESSION, ANTERIOR LEADS MINIMAL Q WAVES- HIGH LATERAL LEADS BORDERLINE ST-T WAVE ABNORMALITY- HIGH LATERAL LEADS BASELINE ARTIFACT- I, II, AVR, AVL, AVF ABNORMAL ECG Electronically Signed On 01-31-2022 7:15:00 CDT by Jose Ramon Lao D.O.
--- NOTE | 2022-01-31 05:15 | ED.WEAKNESS ---
HPI - Weakness General Chief complaint: Weakness Stated complaint: gen weakness, wants restarted on dialysis Source: patient, family and EMS Mode of arrival: EMS Limitations: no limitations History of Present Illness HPI Narrative: The patient is a 81-year-old male with a history of chronic kidney disease, multiple myeloma, NSTEMI, congestive heart failure, presenting to the emergency department for evaluation of generalized weakness. Patient states he has felt unwell and is generally weak this morning. Patient has had increased difficulty with ambulation, thus prompting his to call an ambulance to bring him to the hospital this morning. Per the patient and the , they state the patient has had worsening creatinine value, and his wall steamer, Dr. Moeller, had indicated to the patient that he may require dialysis if that is something that the patient wished to pursue. Patient is currently undergoing treatment for multiple myeloma, follows with Dr. Nicolas. He denies any fever, chills, nausea, vomiting, dizziness. Denies any palpitations. He denies any focal weakness or numbness. He denies abdominal pain, diarrhea. Patient denies headache, vision changes. He has recently been diagnosed with oral candidiasis for which he has been prescribed and antifungal. In the past, patient was noted to have rising creatinine levels but was noted to have normal electrolytes and still producing urine. Patient reports decreased oral intake secondary to generalized weakness and not feeling up to eating much. Related Data Home Medications Medication Instructions Recorded Confirmed Darzalex 20 mg IV MONTHLY 01/07/20 06/14/21 tamsulosin 0.4 mg PO DAILY 01/07/20 06/14/21 valacyclovir 500 mg PO DAILY 01/07/20 06/14/21 dexamethasone 4 mg PO FR 01/08/20 06/14/21 Caltrate 600 plus D 1 tablet PO DAILY 04/29/20 06/14/21 Brilinta 60 mg PO Q12H 06/15/21 06/15/21 furosemide [Lasix] 40 mg DAILY 12/12/21 Allergies Allergy/AdvReac Type Severity Reaction Status Date / Time codeine AdvReac Confusion Verified 12/12/21 13:20 hydrocodone AdvReac Nausea and Verified 12/12/21 13:20 Vomiting Review of Systems Review of Systems: CONSTITUTIONAL: Denies fever, chills, or sweats. EYES: Denies visual changes, redness, or discharge. ENT: Denies rhinorrhea, congestion, sore throat, or otalgia. CARDIOVASCULAR: Denies chest pain, palpitations, or edema. RESPIRATORY: Denies cough or dyspnea. GASTROINTESTINAL: Denies abdominal pain, nausea, vomiting, or diarrhea. GENITOURINARY: Denies dysuria or hematuria. SKIN: Denies rash or itching. MUSCULOSKELETAL: Denies back pain, joint pain, or myalgia. NEUROLOGIC: Denies headache, numbness, reports generalized weakness PMFSH Past Medical History Medical History Arthritis of left hand BPH (benign prostatic hyperplasia) Cancer CHF (congestive heart failure) His echo was performed on 01/08/2020. EF was 65-70%. CKD (chronic kidney disease), stage IV Multiple myeloma He had been in remission at 1 time but is not active. The patient takes chemotherapy. Non-ST elevation myocardial infarction (NSTEMI) Shingles now improved and the medication. Vascular dialysis catheter in place Surgical History Surgical History History of arthroscopy of shoulder both shoulders Previous back surgery Stented coronary artery lad x1 Family History Family History Mother Diabetes mellitus Acute myocardial infarction Father Lung cancer Social History Social History Social History: the patient has 3 children. He lives with his . He dominates her to be the durable power prosecuting attorney for healthcare. The patient would like to be a full code. Patient is retired from [employer]. The patient is a lifelong nonsm
[2022-01-31] MEDS: SODIUM CHLORIDE 0.9% IV 500 ML 999 ML IV CONT (05:24)
[2022-01-31 05:39] LABS: Basophils Percent Auto 0.2 % (0.2-1.2); Eosinophils Absolute Auto 0.1 K/mm3 (0-0.3); Eosinophils Percent Auto 0.8 % (0-4.4); Hematocrit 27.7 % (42.0-52.0); Hemoglobin 8.9 g/dL (14.0-18.0); Immature Granulocyte Absolute 0.08 K/mm3 (0.00-0.031); Lymphocytes Absolute Auto 1.73 K/mm3 (0.9-3.2); Mean Corpuscular HGB Conc 32.1 g/dl (32-36); Mean Corpuscular Hemoglobin 30.3 pg (26-34); Mean Corpuscular Volume 94.2 fl (80-100); Mean Platelet Volume 9.4 fl (7.4-10.4); Monocytes Absolute Auto 0.9 K/mm3 (0.1-0.6); Monocytes Percent Auto 11.4 % (2.6-8.5); Neutrophils Absolute Auto 5.4 K/mm3 (1.3-6.7); Neutrophils Percent Auto 65.6 % (45.5-73.1); Platelet Count Result 181 k/mm3 (150-375); Red Blood Count 2.94 M/mm3 (4.6-6.20); Red Cell Distribution Width 17.5 % (11.5-14.5); White Blood Count 8.3 K/mm3 (4.5-10.0)
[2022-01-31 05:49] LABS: INR 1.2; Prothrombin Time 14.6 Seconds (11.1-14.7)
[2022-01-31 05:50] LABS: Partial Thromboplastin Time 30.9 SECONDS (22.3-36.8)
[2022-01-31 05:54] LABS: Alanine Aminotransferase 15 U/L (4-50); Albumin Level 3.4 g/dL (3.5-5.1); Alkaline Phosphatase 69 U/L (38-126); Anion Gap 12 mmol/L (8-16); Aspartate Amino Transferase 25 U/L (17-59); Bilirubin,Total 0.4 mg/dL (0.2-1.3); Carbon Dioxide 27 mmol/L (22-30); Chloride 91 mmol/L (98-107); Estimated CRCL calculation 5 ml/min; Estimated Glomerular Filt Rate 5; Glucose 96 mg/dL (65-110); Potassium 3.6 mmol/L (3.4-5.0); Sodium 130 mmol/L (137-145)
[2022-01-31 05:56] LABS: Blood Urea Nitrogen 121 mg/dL (9-20)
[2022-01-31 06:03] LABS: Troponin I 0.236 ng/mL (0.000-0.034)
[2022-01-31 06:16] LABS: SARS-CoV-2 RNA PCR Negative
--- NOTE | 2022-01-31 07:02 | ADMGEN ---
This patient, Jackson Boyer, was admitted to IMU Room 205-02. Patient/family oriented to hospital policies and general routines including ID bracelet, bed and alarms, visiting hours, pain management, procedures, bathroom and other care routines, personal items, smoking policy, room service/diet, and visiting hours. Information on how to activate the Rapid Response Team has been discussed. Patient/Family are encouraged to report perceived risks to care and to ask questions if they do not understand what they are told or what they should do.
--- NOTE | 2022-01-31 07:30 | ADMGEN ---
This patient, Jackson Boyer, was admitted to IMU Room 205-02 @ 0700 .Patient oriented to hospital policies and general routines including ID bracelet, bed and alarms, visiting hours, pain management, procedures, bathroom and other care routines, personal items, smoking policy, room service/diet, and visiting hours. Information on how to activate the Rapid Response Team has been discussed. Patient encouraged to report perceived risks to care and to ask questions if they do not understand what they is or what is should do.
--- NOTE | 2022-01-31 09:20 | PM.IMHP ---
H&P: HPI History of Present Illness Date/Time: 01/31/22 09:20 Chief Complaint: weakness Narrative: 81-year-old male with a history of chronic kidney disease, multiple myeloma, NSTEMI, CAD w/ cardiac stent, congestive heart failure, who presented to the emergency department for evaluation of generalized weakness. Pt reports increasing generalized weakness over the past few weeks. He felt unwell, generally weak, and had difficulty ambulating today, prompting his to call the ambulance. He reports chest pressure, shortness of breath, and palpitations with any exertion over the past few weeks. These symptoms are all relieved by rest. He also notes light headedness frequently whenever standing up too fast. He reports overall decreased PO intake due to feeling poor and decreased appetite. He denies nausea, vomiting, abdominal pain, diarrhea, constipation. Of note, he was recently diagnosed with oral candidiasis and has sores in his mouth so he was recently started on diflucan and acyclovir. He reports pain throughout his mouth and tongue. Patient is currently undergoing treatment for multiple myeloma, follows with Dr. Nicolas. States his las chemo treatment was a few months ago. He denies any fever, chills. No focal weakness or paraesthesias. He does have a mild headache which started today. Pt w/ hx of CKD followed by Dr. Moeller. He tells me he had a dialysis catheter a few years back but this was removed some time ago. He has recently had rising creatinine levels and was told he may require dialysis again which patient states he would like to pursue, pending another discussion with nephrology. He is still making urine at this time. Preliminary workup in the ER significant for mild hyponatremia, hypochloremia, and elevated creatinine which is uptrending as well as an elevated BUN. His chest x-ray does show patchy infiltrates bilaterally with stable left pleural effusion. He is negative for COVID. His baseline troponin is elevated at 0.236, 3 hour troponin pending. No dynamic EKG changes. Pt is being admitted as inpatient status for further evaluation and treatment, will likely be hospitalized greater than 2 midnights. Review of Systems Review of Systems: General: Denies fevers, chills, + fatigue Eyes: Denies vision changes or eye pain ENT: Denies nasal congestion, +mouth pain and sores Respiratory: Denies cough, +shortness of breath Cardiovascular: + chest pain, + palpitations, denies lower extremity edema Gastrointestinal: Denies abdominal pain, vomiting, or diarrhea Genitourinary: Denies dysuria or urinary frequency Musculoskeletal: Denies back pain or muscle aches Neurological: + headache, denies paraesthesias or motor weakness Integumentary: Denies rash or other skin lesions Psychiatric: Denies SI/[facility] Past Medical History Medical History (Updated 01/31/22 @ 09:41 by Shila Moseley PA-C) BPH (benign prostatic hyperplasia) CAD (coronary artery disease) CHF (congestive heart failure) His echo was performed on 01/08/2020. EF was 65-70%. CKD (chronic kidney disease), stage IV Multiple myeloma Non-ST elevation myocardial infarction (NSTEMI) Shingles Surgical History Surgical History History of arthroscopy of shoulder both shoulders Previous back surgery Stented coronary artery lad x1 Family History Family History Mother Diabetes mellitus Acute myocardial infarction Father Lung cancer Social History Social History (Updated 01/31/22 @ 09:37 by Shila Moseley PA-C) Social History: the patient has 3 children. He lives with his . 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 The patient would like to be a full code. Patient is retired from [employer]. The patient is a lifelong nonsmoker. He does not use alcohol or marijuana or any illicit drugs.
[2022-01-31 10:04] LABS: Troponin I 0.197 ng/mL (0.000-0.034)
[2022-01-31] MEDS: CALCIUM CARBONATE (TUMS) 500 MG (200 MG ELEMENTAL) PO (10:36)
[2022-01-31] MEDS: ASPIRIN 81 MG ENTERIC TABLET PO (10:37)
[2022-01-31] MEDS: ACYCLOVIR 200 MG CAPSULE PO ×2 (10:37→21:17)
[2022-01-31] MEDS: calcitrioL 0.25 MCG CAPSULE PO (10:37)
[2022-01-31] MEDS: TAMSULOSIN HCL 0.4 MG CAPSULE PO (10:37)
[2022-01-31] MEDS: FUROSEMIDE 40 MG TABLET 80 MG PO (10:38)
[2022-01-31] MEDS: FLUCONAZOLE 100 MG TABLET 200 MG PO (10:38)
[2022-01-31] MEDS: ROSUVASTATIN 5 MG TABLET PO (10:38)
--- NOTE | 2022-01-31 10:47 | PM.CNGS ---
Assessment and Plan Assessment and plan (1) CKD (chronic kidney disease), stage V: Code(s): N18.5 - Chronic kidney disease, stage 5 Status: Chronic Assessment and Plan: The patient has multiple other medical problems including multiple myeloma and has been going through chemotherapy by Dr. Nicolas, as well as multiple other comorbidities. He has discussed with Nephrology if he would even want to go through with dialysis, given his other medical issues, and has decided that he wishes to proceed. Nephrology has asked our service to see the patient for placement of a tunneled dialysis catheter. I discussed the procedure, risks, benefits, and expected outcomes with the patient in detail. All questions were answered and he wishes to proceed. We will add the patient to the OR schedule Saturday for placement of a tunneled DuraFlow catheter by Dr. Guerra. (2) Elevated troponin: Code(s): R79.89 - Other specified abnormal findings of blood chemistry Status: Acute Assessment and Plan: Troponin 0.236 and 0.197. EKG without acute ST changes. Patient complains of dyspnea and chest pain with exertion over the past few weeks. Echo and Cardiology consult pending. (3) Weakness: Code(s): R53.1 - Weakness Status: Acute (4) Multiple myeloma: Qualifiers: Multiple myeloma remission status: not in remission Qualified Code(s): C90.00 - Multiple myeloma not having achieved remission Code(s): C90.00 - Multiple myeloma not having achieved remission Status: Chronic Assessment and Plan: Treated by Dr. Nicolas. Last chemotherapy treatment was early November. (5) Chronic heart failure: Qualifiers: Heart failure type: diastolic Qualified Code(s): I50.32 - Chronic diastolic (congestive) heart failure Code(s): I50.9 - Heart failure, unspecified Status: Chronic (6) CAD (coronary artery disease): Code(s): I25.10 - Atherosclerotic heart disease of [place] coronary artery without angina pectoris Status: Acute Additional Plan I have discussed the patient's case and plan of care with Dr. Guerra. History of Present Illness Consult details Consult date: 01/31/22 Reason for consult: other (Placement of tunneled dialysis catheter) Requesting physician: Shila Moseley PA-C Narrative: This is a 81-year-old with multiple myeloma, coronary artery disease, CHF, and chronic kidney disease who presented to the ER this morning with complaints of weakness. He has had progressively worsening weakness over the past few weeks. He was having increased difficulty with ambulation, which prompted his to call an ambulance this morning. They have been aware he has had a rising creatinine and was called by Dr. Moeller last night at home after having outpatient labs through Dr. Nicolas showing a creatinine of 9.9. Labs showed mild hyponatremia, hypochloremia, and an uptrending creatinine and BUN. He was admitted to the hospitalist service for weakness and possible pneumonia. He was started on IV Levaquin. His troponin was 0.236 and repeat of 0.197. Cardiology has been consulted with his history of CAD with new shortness of breath and chest pain with exertion. Nephrology has been consulted for his worsening chronic kidney disease and our service has been consulted for dialysis catheter placement. He is now seen in the IMU with his . He is followed by Dr. Nicolas for his multiple myeloma and has been on chemotherapy with peripheral IV access, no port. They had changed his chemotherapy in October and he developed mouth sores, so that was stopped. They tried a new medication in early November, which he reportedly did not tolerate so he has not had any chemotherapy or further treatment since then. 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 He has required hemodialysis temporarily in December of 2019. He had a right IJ tunneled dialysis
--- NOTE | 2022-01-31 10:59 | PC.NURSE ---
Per patient's , patient follows outpatient with [facility], Dr. Wilfrido Guthrie, in [place], [place].
[2022-01-31 11:52] LABS: Procalcitonin 0.9 ng/mL
--- NOTE | 2022-01-31 12:32 | PCNSR ---
On 01/31/22, the student, Babs Irwin, provided care and completed [facility] documentation on this patient. I have reviewed the student's documentation and agree with the findings.
--- NOTE | 2022-01-31 12:43 | PM.CNCAR ---
Assessment and Plan Assessment and plan (1) Preop cardiovascular exam: Code(s): Z01.810 - Encounter for preprocedural cardiovascular examination Status: Acute Assessment and Plan: Patient is at low risk of cardiovascular complications for dialysis catheter placement. (2) Chest pain: Qualifiers: Chest pain type: unspecified Qualified Code(s): R07.9 - Chest pain, unspecified Code(s): R07.9 - Chest pain, unspecified Status: Acute Assessment and Plan: Possibly anginal. He is markedly dehydrated in my opinion and in acute renal failure. He is likely tachycardic at times with activity because of his dehydration and this may be causing some chest pain. He does have known CAD and previous PCI. Cannot exclude angina. 2D echocardiogram Doppler will be ordered and reviewed to ensure there is no pericardial effusion. (3) Elevated troponin: Code(s): R77.8 - Other specified abnormalities of plasma proteins Status: Acute Assessment and Plan: May be related to renal failure. Cannot exclude ischemia at this point (4) Renal failure (ARF), acute on chronic: Qualifiers: Acute renal failure type: unspecified Chronic kidney disease stage: stage 5, not on chronic dialysis Qualified Code(s): N17.9 - Acute kidney failure, unspecified; N18.5 - Chronic kidney disease, stage 5 Code(s): N17.9 - Acute kidney failure, unspecified; N18.9 - Chronic kidney disease, unspecified Status: Acute Assessment and Plan: Severe. Nephrology consultation pending. Hold furosemide (5) SOB (shortness of breath): Code(s): R06.02 - Shortness of breath Status: Acute (6) CAD (coronary artery disease): Code(s): I25.10 - Atherosclerotic heart disease of [place] coronary artery without angina pectoris Status: Acute Assessment and Plan: Previous mid LAD PCI. Continue aspirin. Will add low-dose metoprolol 12.5 mg p.o. b.i.d.. Increase rosuvastatin to 10 mg daily. Hold furosemide History of Present Illness History of Present Illness Consult date/time: 01/31/22 12:43 Requesting physician: Shila Moseley PA-C Consult reason: chest pain, pre-op evaluation and Other Reason For Visit: Acute on chronic kidney disease/lung infiltrate/el Narrative: Date of service 01/31/2022 Reason consultation: Chest pain, CAD, preoperative evaluation Requesting provider: Shila Moseley History: Patient is a 81-year-old male who has a history of CAD. He had a 90+% lad stenosis at was intervened upon a couple of years ago. He has his cardiology care performed by Dr. diez. He also has multiple myeloma undergoing treatment by Dr. Nicolas, chronic kidney disease, CHF. Presented the hospital with a multitude of symptoms and failure to thrive. Patient has had worsening shortness of breath with activity over the past couple of weeks. He has also had some chest pain in his upper chest without radiation over the past couple of weeks also. Usually occurs with activity and will last for about 5 minutes. Shortness of breath and chest pain is occurring by doing simple things such as walking across the room. He denies any radiation to his symptoms. He denies any edema, syncope, paroxysmal nocturnal dyspnea orthopnea or palpitations. He has been dealing with thrush and has not had significant p.o. intake. His creatinine is 10 and is troponins are minimally elevated. Review of Systems Review of Systems: All systems reviewed & are unremarkable except as noted in HPI and below Constitutional: Constitutional: Reports weakness Eyes: Eyes: Reports blurry vision ENT: Reports Normal hearing present Cardiovascular: Cardiovascular: Reports chest pain Respiratory: Respiratory: Reports dyspnea Gastrointestinal: Gastrointestinal: Denies abdominal pain Genitourinary: Genitourinary: Denies dysuria Musculoskeletal: Musculoskeletal: Denies neck pain Integumentary/
--- NOTE | 2022-01-31 12:52 | PM.PNNEP ---
Subjective Date/time seen: 01/31/22 12:52 Interval history: Jackson is a very pleasant 81-year-old gentleman who has multiple medical problems including chronic kidney disease stage [address] Moeller in the office, multiple myeloma, coronary disease status post [place] and cardiac stent with congestive heart failure, BPH, and history of shingles. The patient has been seeing Dr. Moeller for a long time. Three years ago he went to education and [facility]. He never did have a fistula placed because his kidneys were always stable . Last spring when he saw Dr. Seymour was creatinine was around 5. He says that for the last few weeks he has gradually been getting more and more tired. Appetite is poor. He has not be eating as well. Her no confusion however. The patient decided to come to the emergency room because he was weak. Labs were checked and the creatinine was up to 10. They called Dr. Moeller who said bring him in and will start dialysis. Family has been discussing dialysis. They had multiple questions about it. He does have multiple myeloma and does have an overall decreased health status because he has a lots of illnesses at the same time. They asked if we could do anything besides start dialysis. I told them that if we did not start dialysis soon he could not survive. We do not want wait too long to start dialysis because they get too far behind nutritionally and is difficult to recover. I advised then the they wanted to start dialysis at all they should start now. If they did not then we could follow him along and let nature take its course. After thinking about the patient and the misses recurs say that they want to do dialysis after all. They understand that is not going to get better. He will have to dialysis 3 times a week for the rest of his life. We will place a catheter for dialysis now. Can have a fistula or if he decides on peritoneal dialysis they can do that as an outpatient. Review of Systems Cardiovascular: Cardiovascular: Reports no additional cardiovascular complaints Respiratory: Respiratory: Reports no additional respiratory complaints Gastrointestinal: Gastrointestinal: Reports no additional gastrointestinal complaints Genitourinary: Genitourinary: Reports no additional male genitourinary complaints Exam Narrative: WDWN in NAD skin no rash head ncat lungs clear cor reg no rub abd BS+ nontender and soft ext no edema. Objective Data Vital Signs Vital Signs: Vital Signs - 24 hr 01/31/22 05:07 01/31/22 05:12 01/31/22 06:35 Temperature 36.7 C Pulse Rate 95 94 80 Respiratory Rate 14 14 Blood Pressure 115/74 108/67 Pulse Oximetry 100 100 01/31/22 07:00 01/31/22 08:00 01/31/22 12:00 Temperature 36.1 C L 36.3 C L 36.0 C L Pulse Rate 84 82 75 Respiratory Rate 16 18 20 Blood Pressure 118/69 97/48 L 107/65 Pulse Oximetry 98 100 98 Intake/Output Intake/Output: Intake & Output 01/28/22 01/29/22 01/30/22 01/31/22 23:59 23:59 23:59 23:59 Intake Total 940 Balance 940 Meds/Results Medications: Active Medications Generic Name Dose Route Start Last Admin Trade Name Freq PRN Reason Stop Dose Admin Acetaminophen 650 mg 01/31/22 06:15 Acetaminophen 325 Mg Tablet PO Q4H PRN Mild Pain (1-3) or Fever Acyclovir 200 mg 01/31/22 09:00 01/31/22 10:37 Acyclovir 200 Mg Capsule PO 02/08/22 21:01 200 mg Q12HR VIKAS Administration Aspirin 81 mg 01/31/22 09:00 01/31/22 10:37 Aspirin 81 Mg Enteric Tablet PO 81 mg QAM VIKAS Administration Calcitriol 0.25 mcg 01/31/22 09:00 01/31/22 10:37 Calcitriol 0.25 Mcg Capsule PO 0.25 mcg DAILY VIKAS Administration Calcium Carbonate 200 mg 01/31/22 09:00 01/31/22 10:36 Calcium Carbonate (Tums) 500 Mg (200 Mg Elemental) PO 200 mg TID VIKAS Administration Fluconazole 200 mg 01/31/22 09:00 01/31/22 10:38 Fluconazole 100 Mg Tablet PO 02/17/22 09:01 200 mg
[2022-01-31 12:59] LABS: Troponin I 0.198 ng/mL (0.000-0.034)
--- NOTE | 2022-01-31 12:59 | PM.CNNEP ---
Assessment and Plan Additional Plan 1.Jackson has chronic kidney disease stage 5. He has uremic symptoms. This consisted of fatigue poor appetite and poor oral intake. His GFR has been around 8 for months and now his GFR is below 7. So it is time to start dialysis. He and his discussed whether he would want to go through all this because of all the other health issues that he has, but they have decided to proceed with dialysis. We discussed the risks, benefits, alternatives, and the process of dialysis and they agree to proceed. I discussed with Ros from surgery and she will arrange for a tunneled dialysis catheter to be placed. He will probably start dialysis late Tomorrow or Saturday. 2. The patient has multiple myeloma. He is on medications for this. 3. He has hyperlipidemia. He is on rosuvastatin for this. 4. He has coronary artery disease. Dr. rodriguez is looking in on the patient. 5. He has anemia of chronic kidney disease. He will be getting EPO on dialysis. Multiple myeloma may be playing a role as well. 6. He has benign prostatic hypertrophy. His urinary flow is okay History of Present Illness Reason for Consult Consult date: 01/31/22 Chief Complaint Chief complaint: Acute on chronic kidney disease/lung infiltrate/el History of Present Illness Narrative: Jackson is a very pleasant 81-year-old gentleman who has multiple medical problems including chronic kidney disease stage [address] Moeller in the office, multiple myeloma, coronary disease status post [place] and cardiac stent with congestive heart failure, BPH, and history of shingles. The patient has been seeing Dr. Moeller for a long time. Three years ago he went to education and decided on [facility] hemo. He never did have a fistula placed because his kidneys were always stable . Last spring when he saw Dr. Seymour was creatinine was around 5. He says that for the last few weeks he has gradually been getting more and more tired. Appetite is poor. He has not be eating as well. Her no confusion however. The patient decided to come to the emergency room because he was weak. Labs were checked and the creatinine was up to 10. They called Dr. Moeller who said bring him in and will start dialysis. Family has been discussing dialysis. They had multiple questions about it. He does have multiple myeloma and does have an overall decreased health status because he has a lots of illnesses at the same time. They asked if we could do anything besides start dialysis. I told them that if we did not start dialysis soon he could not survive. We do not want wait too long to start dialysis because they get too far behind nutritionally and is difficult to recover. I advised then the they wanted to start dialysis at all they should start now. If they did not then we could follow him along and let nature take its course. After thinking about the patient and the misses recurs say that they want to do dialysis after all. They understand that is not going to get better. He will have to dialysis 3 times a week for the rest of his life. We will place a catheter for dialysis now. Can have a fistula or if he decides on peritoneal dialysis they can do that as an outpatient. Review of Systems Constitutional: Constitutional: Reports no additional constitutional complaints Eyes: Eyes: Reports no additional eye complaints ENT: Reports system reviewed and no additional complaints, except as documented Cardiovascular: Cardiovascular: Reports no additional cardiovascular complaints Respiratory: Respiratory: Reports no additional respiratory complaints Gastrointestinal: Gastrointestinal: Reports no additional gastrointestinal complaints Genitourinary: Genitourinary: Reports no additional male genitourinary complaints Musculoskeletal: Musculoskeletal: Reports no additional musculoskeletal complaints Integumentary/Breasts: Skin/Breast: Reports system
[2022-01-31 13:26] LABS: Appearance Urine Clear (Clear); Bilirubin Urine Negative (Negative); Blood Urine 2+ (Negative); Glucose Urine UA Negative (Negative); Ketones Urine Negative (Negative); Leukocyte Esterase Ur Negative LEU/UL (Negative); Nitrate Urine Negative (Negative); Protein Urine 2+ mg/dL (Negative); Urobilinogen Urine 0.2 mg/dL (<2.0); pH Urine 5.5 (5.0-9.0)
[2022-01-31 13:39] LABS: Bacteria Urine Trace /hpf; RBC Urine 0-2 /hpf (0-2); Squamous Epithelial Cell Urine Rare /hpf (Few); WBC Urine 0-3 /hpf
[2022-01-31] MEDS: ACETAMINOPHEN 325 MG TABLET 650 MG PO ×2 (13:42→23:26)
[2022-01-31 13:53] LABS: Add Urine Microscopic? YES; Color Urine Light Yellow (Yellow)
[2022-01-31 16:12] LABS: Hepatitis B Surface Antigen Negative (Negative)
[2022-01-31 16:30] LABS: Hepatitis B Surface Anti Res Negative; Hepatitis C Virus Antibody Negative (Negative)
[2022-01-31] MEDS: NYSTATIN 100,000 UNITS/ML SUSP 5 ML ORAL.SUSP PO (21:16)
[2022-01-31] MEDS: METOPROLOL TARTRATE 12.5 MG TABLET PO (21:17)
[2022-02-01] VITALS (19 sets, daily range): BP systolic 89–130; BP diastolic 46–70; PULSE 68–100; RESP 16–20; TEMP 36.6–37.3; O2SAT 97–99
[2022-02-01 05:31] LABS: Basophils Percent Auto 0.1 % (0.2-1.2); Eosinophils Percent Auto 0.6 % (0-4.4); Hematocrit 24.1 % (42.0-52.0); Hemoglobin 7.8 g/dL (14.0-18.0); Immature Granulocyte Absolute 0.05 K/mm3 (0.00-0.031); Immature Granulocyte Percent A 0.7 % (0-0.5); Lymphocytes Absolute Auto 0.76 K/mm3 (0.9-3.2); Lymphocytes Percent Auto 11.3 % (18.3-44.2); Mean Corpuscular HGB Conc 32.4 g/dl (32-36); Mean Corpuscular Hemoglobin 30.1 pg (26-34); Mean Corpuscular Volume 93.1 fl (80-100); Mean Platelet Volume 9.1 fl (7.4-10.4); Monocytes Absolute Auto 0.7 K/mm3 (0.1-0.6); Monocytes Percent Auto 10.7 % (2.6-8.5); Neutrophils Absolute Auto 5.2 K/mm3 (1.3-6.7); Neutrophils Percent Auto 76.6 % (45.5-73.1); Platelet Count Result 144 k/mm3 (150-375); Red Blood Count 2.59 M/mm3 (4.6-6.20); Red Cell Distribution Width 17.6 % (11.5-14.5); White Blood Count 6.7 K/mm3 (4.5-10.0)
[2022-02-01 05:55] LABS: Alanine Aminotransferase 13 U/L (4-50); Alkaline Phosphatase 64 U/L (38-126); Anion Gap 12 mmol/L (8-16); Aspartate Amino Transferase 24 U/L (17-59); Bilirubin,Total 0.3 mg/dL (0.2-1.3); Calcium 8.3 mg/dL (8.4-10.2); Carbon Dioxide 25 mmol/L (22-30); Chloride 91 mmol/L (98-107); Estimated CRCL calculation 5 ml/min; Estimated Glomerular Filt Rate 5; Glucose 81 mg/dL (65-110); Phosphorus 5.8 mg/dL (2.5-4.5); Potassium 3.8 mmol/L (3.4-5.0); Sodium 128 mmol/L (137-145)
[2022-02-01 07:22] LABS: Blood Urea Nitrogen 122 mg/dL (9-20)
[2022-02-01] MEDS: ACYCLOVIR 200 MG CAPSULE PO ×2 (09:57→20:30)
[2022-02-01] MEDS: ASPIRIN 81 MG ENTERIC TABLET PO (09:57)
[2022-02-01] MEDS: CALCIUM CARBONATE (TUMS) 500 MG (200 MG ELEMENTAL) PO ×3 (09:57→17:15)
[2022-02-01] MEDS: FLUCONAZOLE 100 MG TABLET 200 MG PO (09:58)
[2022-02-01] MEDS: ROSUVASTATIN 10 MG TABLET PO (09:58)
[2022-02-01] MEDS: calcitrioL 0.25 MCG CAPSULE PO (09:58)
[2022-02-01] MEDS: NYSTATIN 100,000 UNITS/ML SUSP 5 ML ORAL.SUSP PO ×4 (09:59→20:30)
[2022-02-01] MEDS: TAMSULOSIN HCL 0.4 MG CAPSULE PO (09:59)
[2022-02-01] MEDS: METOPROLOL TARTRATE 12.5 MG TABLET PO ×2 (10:02→20:30)
--- NOTE | 2022-02-01 10:19 | PM.PNCARD ---
Progress Note: A&P Assessment and Plan (1) Preop cardiovascular exam: Code(s): Z01.810 - Encounter for preprocedural cardiovascular examination Status: Acute Assessment and Plan: Patient is at low risk of cardiovascular complications for dialysis catheter placement. Plan for OR tomorrow for HD catheter placement (2) Chest pain: Qualifiers: Chest pain type: unspecified Qualified Code(s): R07.9 - Chest pain, unspecified Code(s): R07.9 - Chest pain, unspecified Status: Acute Assessment and Plan: Possibly anginal. He does have known CAD and previous PCI and does describe some exertional chest pain. He's unsure if he would want to pursue anything invasive to work this up such as coronary angiography. Nevertheless this wouldn't be considered until after he has dialysis access. (3) Elevated troponin: Code(s): R77.8 - Other specified abnormalities of plasma proteins Status: Acute Assessment and Plan: May be related to renal failure. Cannot exclude ischemia at this point (4) Renal failure (ARF), acute on chronic: Qualifiers: Acute renal failure type: unspecified Chronic kidney disease stage: stage 5, not on chronic dialysis Qualified Code(s): N17.9 - Acute kidney failure, unspecified; N18.5 - Chronic kidney disease, stage 5 Code(s): N17.9 - Acute kidney failure, unspecified; N18.9 - Chronic kidney disease, unspecified Status: Acute Assessment and Plan: Severe. Plan for HD. (5) SOB (shortness of breath): Code(s): R06.02 - Shortness of breath Status: Acute (6) CAD (coronary artery disease): Code(s): I25.10 - Atherosclerotic heart disease of [place] coronary artery without angina pectoris Status: Acute Assessment and Plan: Previous mid LAD PCI. Continue aspirin. Continue metoprolol 12.5 mg p.o. b.i.d.. Increase rosuvastatin to 10 mg daily. Hold furosemide Subjective Date/time seen: 02/01/22 10:19 Cardiology follow up for CAD Feels ok. Denies any shortness of breath, palpitations. Does report some chest pain with exertion which has been occurring for about 3 weeks. Review of Systems Review of Systems: All systems reviewed & are unremarkable except as noted in HPI and below Constitutional: Constitutional: Reports fatigue, Denies headache(s) and Reports weakness Eyes: Eyes: Reports blurry vision ENT: Reports Normal hearing present, Denies headache(s) and Denies neck pain Cardiovascular: Cardiovascular: Reports chest pain and Reports dyspnea Respiratory: Respiratory: Reports dyspnea Gastrointestinal: Gastrointestinal: Denies abdominal pain Genitourinary: Genitourinary: Denies dysuria Musculoskeletal: Musculoskeletal: Denies neck pain Integumentary/Breasts: Skin/Breast: Denies dry skin Neurologic: Reports Normal hearing present, Denies headache(s) and Reports weakness Psychiatric: Psychiatric: Denies anxiety Endocrine: Endocrine: Reports fatigue Hematologic/Lymphatic: Hematologic/Lymphatic: Denies easy bleeding Allergic/Immunologic: Allergic/Immunologic: Denies GI upset with certain foods Exam Narrative: Awake alert and oriented appears stated age. Frail in appearance Const: General: comfortable and no acute distress HENMT: General nose exam: Normal nares present Eyes: Sclera: sclerae normal Neck: Neck: supple and no JVD Resp: Auscultation: clear to auscultation bilaterally Cardio: Rate: regular rate Rhythm: regular rhythm GI: Inspection: non-distended Auscultation: normal bowel sounds Skin: General skin exam: normal color Neuro: Cranial nerves: Yes Normal hearing present Cognition (Neuro): normal cognition Speech: normal speech Extrem: General: normal to inspection and no edema Psych: Mental Status: mental status grossly normal Objective Data Vital Signs Vital Signs: Vital Signs - 24 hr 01/31/22 12:00 01/31/22 14:00 01/31/22 16:00
--- NOTE | 2022-02-01 11:49 | PM.IMPN ---
Progress Note: A&P Assessment and Plan (1) Weakness: Code(s): R53.1 - Weakness Status: Acute Assessment and Plan: -etiology not entirely clear at this time, could be multifactorial due to multiple myeloma, dehydration, anemia, worsening kidney function -mildly hypotensive, afebrile, no leukocytosis -not confused or altered -no focal neurological deficits to suggest CVA or intracranial pathology -started on abx for L sided infiltrate, possible pneumonia? -UA negative (2) Anemia: Code(s): D64.9 - Anemia, unspecified Status: Acute Assessment and Plan: -stable, chronic -not worsened from baseline -repeat CBC tomorrow (3) Acute on chronic renal failure: Qualifiers: Acute renal failure type: unspecified Chronic kidney disease stage: stage 5, not on chronic dialysis Qualified Code(s): N17.9 - Acute kidney failure, unspecified; N18.5 - Chronic kidney disease, stage 5 Code(s): N17.9 - Acute kidney failure, unspecified; N18.9 - Chronic kidney disease, unspecified Status: Acute Assessment and Plan: -BUN/creat elevated at 121/10.0 -felt to be multifactorial due to HTN and longstanding dx of multiple myeloma -recent discussion with his workforce consultant included possibly restarting dialysis -after meeting with nephrology and general surgery yesterday, pt has decided to proceed. Tunneled dialysis catheter will be placed tomorrow and will start dialysis hopefully shortly after that. (4) Elevated troponin: Code(s): R79.89 - Other specified abnormal findings of blood chemistry Status: Acute Assessment and Plan: -first mildly elevated on admission at 0.236 but second trop is 0.197 -EKG no STEMI -pt c/o chest pain/sob/palpitations with exertion which has been going on for a couple of weeks, pain resolves with rest -hx of CAD w/ stent to LAD -echo reviewed -cardiology consulted for the chest pain as well as pre op clearance for dialysis catheter placement (5) Pleural effusion on left: Code(s): J90 - Pleural effusion, not elsewhere classified Status: Acute Assessment and Plan: -CXR shows patchy infiltrates bilaterally with stable left pleural effusion although the ER doctor felt the L sided pleural effusion was more prominent than compared to previous images. Although he does not have fever or leukocytosis it is possible with his immunosuppressed state that he has not mounted as large of an immune response and thus he was started on Levaquin -He does not appear to be in any type of CHF exacerbation, no LE edema, echo reviewed -COVID negative (6) Electrolyte abnormality: Code(s): E87.8 - Other disorders of electrolyte and fluid balance, not elsewhere classified Status: Acute Assessment and Plan: -mild hyponatremia noted -nephrology on board -repeat BMP tomorrow (7) Multiple myeloma: Qualifiers: Multiple myeloma remission status: not in remission Qualified Code(s): C90.00 - Multiple myeloma not having achieved remission Code(s): C90.00 - Multiple myeloma not having achieved remission Status: Chronic Assessment and Plan: -followed by Dr. Nicolas -last chemo a few months ago Subjective Date/time seen: 02/01/22 11:49 Interval history: 81-year-old male with a history of chronic kidney disease, multiple myeloma, NSTEMI, CAD w/ cardiac stent, congestive heart failure, admitted for generalized weakness. Pt has decided to move forward with dialysis. Catheter will be placed tomorrow, hopefully dialysis after that. Pt is resting comfortably today with at bedside. He has no complaints. Still fairly weak but feels better today. No N/V/abd pain/cp/sob/LE edema/fevers. Review of Systems Review of Systems: All systems reviewed & are unremarkable except as noted in HPI and below Exam Narrative: GENERAL: NAD. Chronically ill appea
--- NOTE | 2022-02-01 12:44 | PM.PNNEP ---
Progress Note: A&P Additional Plan 1.Jackson has chronic kidney disease stage 5. He has uremic symptoms. This consisted of fatigue poor appetite and poor oral intake. His GFR has been around 8 for months and now his GFR is below 7. So it is time to start dialysis. He is getting the permacath tomorrow. 2. The patient has multiple myeloma. He is on medications for this. 3. He has hyperlipidemia. He is on rosuvastatin for this. 4. He has coronary artery disease. no cp Dr. Cruz is looking in on the patient. 5. He has anemia of chronic kidney disease. He will be getting EPO on dialysis. Multiple myeloma may be playing a role as well. 6. He has benign prostatic hypertrophy. His urinary flow is okay Subjective Date/time seen: 02/01/22 12:44 Interval history: patient feels about the same. Mouth still sore. No shortness of breath. Review of Systems Cardiovascular: Cardiovascular: Reports no additional cardiovascular complaints Respiratory: Respiratory: Reports no additional respiratory complaints Gastrointestinal: Gastrointestinal: Reports no additional gastrointestinal complaints Genitourinary: Genitourinary: Reports no additional male genitourinary complaints Exam Narrative: WDWN in NAD skin no rash head ncat lungs clear cor reg no rub abd BS+ nontender and soft ext no edema. Objective Data Vital Signs Vital Signs: Vital Signs - 24 hr 01/31/22 14:00 01/31/22 16:00 01/31/22 18:00 Temperature 37.0 C Pulse Rate 86 81 85 Respiratory Rate 20 Blood Pressure 134/52 L Pulse Oximetry 100 01/31/22 20:00 01/31/22 21:17 01/31/22 22:00 Temperature 36.6 C Pulse Rate 98 87 71 Respiratory Rate 20 Blood Pressure 140/83 Pulse Oximetry 96 01/31/22 23:25 02/01/22 00:00 02/01/22 02:00 Temperature 36.4 C Pulse Rate 70 70 87 Respiratory Rate 18 Blood Pressure 133/72 Pulse Oximetry 98 02/01/22 04:00 02/01/22 06:00 02/01/22 08:00 Temperature 36.6 C 37.1 C Pulse Rate 100 68 74 Respiratory Rate 18 18 Blood Pressure 106/58 L 89/49 L Pulse Oximetry 97 98 02/01/22 08:50 02/01/22 10:00 02/01/22 10:02 Temperature Pulse Rate 71 85 94 Respiratory Rate Blood Pressure Pulse Oximetry 02/01/22 10:07 02/01/22 10:08 02/01/22 12:00 Temperature 37.2 C Pulse Rate 86 84 Respiratory Rate 16 Blood Pressure 107/62 109/61 121/70 Pulse Oximetry 99 Intake/Output Intake/Output: Intake & Output 01/29/22 01/30/22 01/31/22 02/01/22 23:59 23:59 23:59 23:59 Intake Total 1730 350 Output Total 525 650 Balance 1205 -300 Meds/Results Medications: Active Medications Generic Name Dose Route Start Last Admin Trade Name Freq PRN Reason Stop Dose Admin Acetaminophen 650 mg 01/31/22 06:15 01/31/22 23:26 Acetaminophen 325 Mg Tablet PO 650 mg Q4H PRN Administration Mild Pain (1-3) or Fever Acyclovir 200 mg 01/31/22 09:00 02/01/22 09:57 Acyclovir 200 Mg Capsule PO 02/08/22 21:01 200 mg Q12HR VIKAS Administration Aspirin 81 mg 01/31/22 09:00 02/01/22 09:57 Aspirin 81 Mg Enteric Tablet PO 81 mg QAM VIKAS Administration Calcitriol 0.25 mcg 01/31/22 09:00 02/01/22 09:58 Calcitriol 0.25 Mcg Capsule PO 0.25 mcg DAILY VIKAS Administration Calcium Carbonate 200 mg 01/31/22 09:00 02/01/22 12:27 Calcium Carbonate (Tums) 500 Mg (200 Mg Elemental) PO 200 mg TID VIKAS Administration Fluconazole 200 mg 01/31/22 09:00 02/01/22 09:58 Fluconazole 100 Mg Tablet PO 02/17/22 09:01 200 mg DAILY VIKAS Administration Levofloxacin/Dextrose 500 mg in 100 mls @ 100 mls/hr 02/02/22 06:00 Levaquin 500 Mg/D5w 100 Ml IVPB Q48H [facility] Metoprolol Tartrate 12.5 mg 01/31/22 21:00 02/01/22 10:02 Metoprolol Tartrate 12.5 Mg Tablet PO 12.5 mg Q12HR VIKAS Administration Nystatin 5 ml 01/31/22 17:00 02/01/22 12:26 Nystatin 100,000 Units/Ml Susp 5 Ml Oral.Susp PO 5 ml
[2022-02-02] VITALS (40 sets, daily range): BP systolic 92–130; BP diastolic 43–82; PULSE 62–95; RESP 10–18; TEMP 35.8–36.8; O2SAT 94–100
[2022-02-02 05:03] LABS: Basophils Percent Auto 0.3 % (0.2-1.2); Eosinophils Percent Auto 0.5 % (0-4.4); Hematocrit 24.5 % (42.0-52.0); Immature Granulocyte Absolute 0.06 K/mm3 (0.00-0.031); Immature Granulocyte Percent A 0.9 % (0-0.5); Lymphocytes Absolute Auto 0.99 K/mm3 (0.9-3.2); Lymphocytes Percent Auto 15.1 % (18.3-44.2); Mean Corpuscular HGB Conc 32.7 g/dl (32-36); Mean Corpuscular Hemoglobin 30.5 pg (26-34); Mean Corpuscular Volume 93.5 fl (80-100); Mean Platelet Volume 9.3 fl (7.4-10.4); Monocytes Absolute Auto 0.7 K/mm3 (0.1-0.6); Monocytes Percent Auto 10.5 % (2.6-8.5); Neutrophils Absolute Auto 4.8 K/mm3 (1.3-6.7); Neutrophils Percent Auto 72.7 % (45.5-73.1); Platelet Count Result 151 k/mm3 (150-375); Red Blood Count 2.62 M/mm3 (4.6-6.20); Red Cell Distribution Width 17.7 % (11.5-14.5); White Blood Count 6.6 K/mm3 (4.5-10.0)
[2022-02-02 05:15] LABS: Potassium 3.9 mmol/L (3.4-5.0)
[2022-02-02] MEDS: levoFLOXacin 500 MG/D5W 100 ML 500 MG/100 ML BAG 100 MG IVPB (05:29)
[2022-02-02 05:32] LABS: Alanine Aminotransferase 13 U/L (4-50); Alkaline Phosphatase 66 U/L (38-126); Anion Gap 14 mmol/L (8-16); Aspartate Amino Transferase 25 U/L (17-59); Bilirubin,Total 0.4 mg/dL (0.2-1.3); Calcium 8.5 mg/dL (8.4-10.2); Carbon Dioxide 22 mmol/L (22-30); Chloride 92 mmol/L (98-107); Estimated CRCL calculation 5 ml/min; Estimated Glomerular Filt Rate 5; Glucose 81 mg/dL (65-110); Phosphorus 6.1 mg/dL (2.5-4.5); Sodium 128 mmol/L (137-145)
[2022-02-02 05:37] LABS: Blood Urea Nitrogen 125 mg/dL (9-20)
[2022-02-02] MEDS: FLUCONAZOLE 100 MG TABLET 200 MG PO (08:31)
[2022-02-02] MEDS: NYSTATIN 100,000 UNITS/ML SUSP 5 ML ORAL.SUSP PO (08:31)
[2022-02-02] MEDS: TAMSULOSIN HCL 0.4 MG CAPSULE PO (08:31)
[2022-02-02] MEDS: CALCIUM CARBONATE (TUMS) 500 MG (200 MG ELEMENTAL) PO (08:31)
[2022-02-02] MEDS: METOPROLOL TARTRATE 12.5 MG TABLET PO (08:31)
[2022-02-02] MEDS: ASPIRIN 81 MG ENTERIC TABLET PO (08:32)
[2022-02-02] MEDS: ACYCLOVIR 200 MG CAPSULE PO (08:32)
[2022-02-02] MEDS: calcitrioL 0.25 MCG CAPSULE PO (08:32)
[2022-02-02] MEDS: ROSUVASTATIN 10 MG TABLET PO (08:32)
--- NOTE | 2022-02-02 09:54 | WPDHPUPDATE1 ---
History and Physical Update Update Date/Time: 02/02/22 09:54 History and Physical has been reviewed, including an updated exam of the patient. There are NO changes in the patient's condition. Risks, benefits, and alternatives have been discussed and questions answered. Patient agrees to proceed with procedure.
--- NOTE | 2022-02-02 10:00 | SUR.PREOP ---
PER DR DHILLON PATIENT OK TO PROCEED TO SURGERY WITH MORNING MEDS INCLUDING 81MG ASA GIVEN @0830.
--- NOTE | 2022-02-02 10:35 | PM.IMPN ---
Progress Note: A&P Assessment and Plan (1) Weakness: Code(s): R53.1 - Weakness Status: Acute Assessment and Plan: -Likely multifactorial due to multiple myeloma, dehydration, anemia, worsening kidney function. His renal function is at an all time low at <7. - Continuing Levaquin for possible PNA. - Prior to definitive discharge date, the pt. will need PT consult for assessment. (2) Anemia: Qualifiers: Anemia type: unspecified type Qualified Code(s): D64.9 - Anemia, unspecified Code(s): D64.9 - Anemia, unspecified Status: Acute Assessment and Plan: - Chronic, likely due to renal disease and MM. - Continue to monitor his CBC - Hgb is 8.0 today. - He will receive Erythropoeitin in Dialysis. (3) Acute on chronic renal failure: Qualifiers: Acute renal failure type: unspecified Chronic kidney disease stage: stage 5, not on chronic dialysis Qualified Code(s): N17.9 - Acute kidney failure, unspecified; N18.5 - Chronic kidney disease, stage 5 Code(s): N17.9 - Acute kidney failure, unspecified; N18.9 - Chronic kidney disease, unspecified Status: Acute Assessment and Plan: -BUN/creat elevated at 125/10.20. GFR is 5. -felt to be multifactorial due to HTN and longstanding dx of multiple myeloma - Permacath to be placed today by surgery and patient will start dialysis shortly thereafter. (4) Elevated troponin: Code(s): R79.89 - Other specified abnormal findings of blood chemistry Status: Acute Assessment and Plan: - Ruled out concern for ACS with Cardiology. - Elevation is likely due to ischemic demand as he is ESRD. (5) Pleural effusion on left: Code(s): J90 - Pleural effusion, not elsewhere classified Status: Acute Assessment and Plan: - Continue to dose Levaquin for a complete round of abx therapy. -He does not appear to be in any type of CHF exacerbation, no LE edema, echo reviewed -COVID negative (6) Electrolyte abnormality: Code(s): E87.8 - Other disorders of electrolyte and fluid balance, not elsewhere classified Status: Acute Assessment and Plan: - Hyponatremia resolved/ - High risk for continued electrolyte derangement as pt. will be starting HD. - Nephrology covering. - Will continue to monitor with BMP's. (7) Multiple myeloma: Qualifiers: Multiple myeloma remission status: not in remission Qualified Code(s): C90.00 - Multiple myeloma not having achieved remission Code(s): C90.00 - Multiple myeloma not having achieved remission Status: Chronic Assessment and Plan: -followed by Dr. Nicolas -last chemo a few months ago Time Spent With Patient Time with patient: 15 - 25 minutes Subjective Date/time seen: 02/02/22 10:35 This patient was examined at the bedside this morning in interval assessment. He is without any complaints of chest pain, dyspnea, nausea, vomiting or any urinary symptoms. He is due to have a PermCath placed today to begin dialysis therapy. It is thought and believed to be that his elevated troponin is likely due to his advanced renal disease. Review of Systems Review of Systems: All systems reviewed & are unremarkable except as noted in HPI and below Exam Const: General: comfortable and no acute distress HENMT: Mouth: Yes dry mucous membranes Eyes: Sclera: sclerae normal Neck: Neck: supple and no JVD Lymphatic: lymphadenopathy not noted Resp: Auscultation: clear to auscultation bilaterally and diminished lung sounds diffuse Cardio: Rate: regular rate Rhythm: regular rhythm GI: GI Palp: Yes Soft to palpation and No Tenderness to palpation present (GI) Auscultation: normal bowel sounds Urinary Catheter: Urinary Catheter: patent and draining and urine clear Skin: General skin exam: normal color and no rashes or lesions noted Neuro: General: gait normal Speech: normal speech Motor exam (ne
[2022-02-02] MEDS: SODIUM CHLORIDE 0.9% IV 500 ML 30 ML IV CONT (10:45)
--- NOTE | 2022-02-02 10:57 | PCPTNOTE ---
The patient treatment was not able to be completed on 02/02/2022 due to patient out of room for procedure. Will plan to continue treatment per plan of care.
--- NOTE | 2022-02-02 10:57 | WPDANESEPPF ---
Anes - Initial Pre Proc Eval Procedure: Operation Date: 02/02/22 11:30 Proposed Procedures p Insertion Duraflow Dialysis Catheter Under Fluoroscopy - Jose Daniel Guerra MD Date/Time: 02/02/22 10:57 Surgeon: RHINA Segovia Pre Op Diagnosis: Acute on chronic kidney disease/lung infiltrate/el Patient Data Age: 81 Gender: M Height: 1.83 m Weight: 60.1 kg Last Vital Signs Temp 97.7 F 02/02/22 08:03 Pulse 68 02/02/22 10:18 Resp 16 02/02/22 10:18 BP 112/63 02/02/22 10:18 Pulse Ox 99 02/02/22 10:18 Allergies Allergy/AdvReac Type Severity Reaction Status Date / Time codeine AdvReac Confusion Verified 01/31/22 06:43 hydrocodone AdvReac Nausea and Verified 01/31/22 06:43 Vomiting Home Medications Medication Instructions Recorded Confirmed Type tamsulosin 0.4 mg PO DAILY 01/07/20 01/31/22 History aspirin 81 mg PO QAM #30 tablet 01/13/20 01/31/22 Rx furosemide [Lasix] 80 mg PO DAILY 12/12/21 01/31/22 History acyclovir 200 mg PO BID 01/31/22 01/31/22 History calcitriol 0.25 mcg PO DAILY 01/31/22 01/31/22 History calcium carbonate [Tums 500] 500 mg PO TID 01/31/22 01/31/22 History fluconazole 200 mg PO DAILY 01/31/22 01/31/22 History nystatin 100,000 unit PO QID 01/31/22 01/31/22 History rosuvastatin [Crestor] 5 mg PO DAILY 01/31/22 01/31/22 History Laboratory Tests 02/02/22 02/02/22 04:55 04:55 WBC 6.6 K/mm3 K/mm3 (4.5-10.0) RBC 2.62 M/mm3 L M/mm3 (4.6-6.20) Hgb 8.0 g/dL L g/dL (14.0-18.0) Hct 24.5 % L % (42.0-52.0) MCV 93.5 fl fl (80-100) MCH 30.5 pg pg (26-34) MCHC 32.7 g/dl g/dl (32-36) RDW 17.7 % H % (11.5-14.5) Plt Count 151 k/mm3 k/mm3 (150-375) MPV 9.3 fl fl (7.4-10.4) Immature Gran % (Auto) 0.9 % H % (0-0.5) Neut % (Auto) 72.7 % % (45.5-73.1) Lymph % (Auto) 15.1 % L % (18.3-44.2) [place] % (Auto) 10.5 % H % (2.6-8.5) Eos % (Auto) 0.5 % % (0-4.4) Baso % (Auto) 0.3 % % (0.2-1.2) Lymph # (Auto) 0.99 K/mm3 K/mm3 (0.9-3.2) [place] # (Auto) 0.7 K/mm3 H K/mm3 (0.1-0.6) Eos # (Auto) 0.0 K/mm3 K/mm3 (0-0.3) Baso # (Auto) 0.0 K/mm3 K/mm3 (0.0-0.1) Abs Immat Gran (auto) 0.06 K/mm3 H K/mm3 (0.00-0.031) Absolute Neuts (auto) 4.8 K/mm3 K/mm3 (1.3-6.7) Absolute Nucleated RBC 0.0 K/mm3 K/mm3 (0.0-0.012) Nucleated RBC % 0.0 % % (0.0-0.2) Sodium 128 mmol/L L mmol/L (137-145) Potassium 3.9 mmol/L mmol/L (3.4-5.0) Chloride 92 mmol/L L mmol/L (98-107) Carbon Dioxide 22 mmol/L mmol/L (22-30) Anion Gap 14 mmol/L mmol/L (8-16) BUN 125 mg/dL H mg/dL (9-20) Creatinine 10.20 mg/dL H mg/dL (0.7-1.3) Estim Creat Clear Calc 5 ml/min ml/min Estimated GFR 5 L (59 - ) Glucose 81 mg/dL mg/dL (65-110) Calcium 8.5 mg/dL mg/dL (8.4-10.2) Phosphorus 6.1 mg/dL H mg/dL (2.5-4.5) Total Bilirubin 0.4 mg/dL mg/dL (0.2-1.3) AST 25 U/L U/L (17-59) ALT 13 U/L U/L (4-50) Alkaline Phosphatase 66 U/L U/L (38-126) Total Protein 5.0 g/dL L g/dL (6.3-8.2) Albumin 3.0 g/dL L g/dL (3.5-5.1) Patient hx anesthesia problems: none Family hx anesthesia problems: none Results Review: All pre-operative results and documents have been reviewed as part of the pre-operative evaluation. FOR[facility]LY [facility] Past Medical History Medical History BPH (benign prostatic hyperplasia) CAD (coronary artery disease) CHF (congestive heart failure) His echo was performed on 01/08/2020. EF was 65-70%. CKD (chronic kidney disease), stage IV Multiple myeloma Non-ST elevation myocardial infarction (NSTEMI) Shingles Surgical History Surgical History History of arthroscopy of
[2022-02-02] MEDS: ceFAZolin 2 GM/D5W 50 ML 2 GM/50 ML BAG IVPB (11:06)
[2022-02-02] MEDS: LIDO 1%/EPINEPHRINE/PF 1:200,000 30 ML VIAL XX (11:52)
[2022-02-02] MEDS: HEPARIN SODIUM, PORCINE 10,000 UNITS/10 ML VIAL 10000 UNITS IRRIGATION (11:54)
[2022-02-02] MEDS: HEPARIN SODIUM 5,000 UNITS/ML VIAL 5000 UNITS SUB-Q (11:57)
--- NOTE | 2022-02-02 12:18 | W.PM.PROC2 ---
Procedure Note - Detailed Date of Procedure 02/02/22 Pre-op Diagnosis CKD stage 5, inadequate venous access for dialysis Post-op Diagnosis Same Procedure Performed Placement tunneled dura flow central venous catheter under fluoroscopy per Dr. Guerra Surgeon Jose Daniel Guerra MD Linen Keeper Hellen [facility] Anesthesia MAC and Local (0.25% Marcaine with epinephrine) Indications Patient is a 81-year-old man with myeloma. He has had to stop treatment for myeloma due to toxicity. He also has end-stage renal disease and is now uremic with very low GFR. He has indications for dialysis and we have been asked to place a tunneled central venous catheter for this purpose. Findings Tip of the catheter was in the distal SVC at the right atrial junction with a smooth contour and no kinks by fluoroscopy. Portable chest x-ray is pending. Description of Procedure Patient was taken to surgery and placed in a supine position. He had a fairly stiff neck with some flexion an ellipse and inability to turn the head from [id number]. The right and left sides of the neck and the upper right and left sides of the chest were all prepped and draped. We planned to use the right IJ and right chest approach. Patient was placed in steep Trendelenburg. Local anesthetic was infiltrated over the area of the right internal jugular vein. After couple of attempts the vein was cannulated and we were able to place a guidewire into the superior vena cava and in fact into the inferior vena cava as demonstrated by fluoroscopy. The patient was then placed back in a normal supine position. I measured the 36 cm dura flow catheter and approximated the tunneled position it would require to end in the distal SVC right atrial junction. The proposed counter incisions on the right chest and right neck were marked on the skin. Local was infiltrated into each of these anticipated incisions. Incisions were then made. The dura flow catheter was then tunneled retrograde from the right upper chest over the clavicle and through the various counter incisions eventually exiting at the incision where the guidewire was exiting. During the tunneling process, it was noted that a skin tear in the lateral mid right neck occurred. It had minimal bleeding but would require dressing following surgery. Then he, using fluoroscopy, I passed serial dilators over the guidewire into the SVC. The dilator with introducer was then passed over the guidewire and into the SVC. The guidewire and dilator were removed. The into the catheter was passed through the sleeve and into the superior vena cava. I checked its position and it appeared to be appropriate. I then removed the sheath. We repositioned the catheter slightly under fluoroscopy until it looked to be in the desired position with no kinks and only a gentle curve in the pathway of the catheter to the internal jugular vein. I then used heparinized saline and checked each of the ports. Both ports had brisk blood return and flushed easily. This was done repeatedly and was consistently showing good flow. I then passed final flush through each of the ports and capped each port. We then closed each of the counter incisions with 4-0 subcuticular Vicryl suture. The catheter was sutured to the skin with 3-0 nylon. Telfa and a Tegaderm dressing was placed over the skin tear site. The other counter incisions were then dressed with Exofin surgical adhesive. Tegaderm dressing was also placed over the exit site of the dura flow catheter. Sponge and needle counts were correct x2. The patient was awakened and taken to recovery in good condition. Implants 36 cm tunneled dura flow catheter in right internal jugular vein position with exit on right infraclavicular chest Estimated Blood Loss -10 Drains No Packing No Pathology None sent Complications No immediate complications Condition Stable Disposition PACU
[2022-02-02 13:35] LABS: INR 1.5; Prothrombin Time 17.3 Seconds (11.1-14.7)
--- NOTE | 2022-02-02 14:09 | PCNFU ---
Nutrition Follow-Up Complete: Inadequate energy intake related to poor appetite as evidenced by BMI:17.8, pt report, and weight loss prior to admission. Goal: Adequate intake of greater than or equal to 50%. Pt has met his goal. Pt current nutrition is NPO due to tunneled catheter procedure. Last recorded weight is 60.1 kg. Weight is stable. Bowel Motility: No BM reported. Labs Reviewed: Hgb: 8.0, Hct:24.5, Alb:3.0, Na:128, GFR:5, BUN:125, Cr:10.2 Meds Noted: Crestor, Flomax, Lopressor, Normal Saline IV Skin: WNL Additional Notes: Follow-up completed with nurse due to pt out of room for procedure. Pt has been eating at least 50% of his meals and is currently NPO. Plans for diet order to be advanced back to renal dialysis diet with Nepro BID: 425 kcals, 19 grams protein. Nurse had no further concerns at this time. Agree with diet orders. Monitor weights, labs, and intake and will follow up in 5 days.
--- NOTE | 2022-02-02 14:21 | PCNSR ---
On 02/02/22, the student, Babs Irwin, provided care and completed [facility] documentation on this patient. I have reviewed the student's documentation and agree with the findings.
[2022-02-02 14:22] LABS: Partial Thromboplastin Time 133.2 SECONDS (22.3-36.8)
--- NOTE | 2022-02-02 14:40 | PCPTNOTE ---
Attempted to see patient for PT this afternoon, however patient was out of room for procedure.
[2022-02-02 14:54] LABS: Hemoglobin 7.8 g/dL (14.0-18.0); Mean Corpuscular HGB Conc 32.5 g/dl (32-36); Mean Corpuscular Volume 95.2 fl (80-100); Mean Platelet Volume 9.6 fl (7.4-10.4); Platelet Count Result 149 k/mm3 (150-375); Red Blood Count 2.52 M/mm3 (4.6-6.20); Red Cell Distribution Width 17.7 % (11.5-14.5); White Blood Count 8.1 K/mm3 (4.5-10.0)
[2022-02-02 15:03] LABS: INR 1.4; Prothrombin Time 16.6 Seconds (11.1-14.7)
[2022-02-02 15:05] LABS: Partial Thromboplastin Time 68.4 SECONDS (22.3-36.8)
[2022-02-02 15:12] LABS: Fibrinogen 396 mg/dl (215-510)
[2022-02-02] MEDS: SODIUM CHLORIDE 0.9% IV 250 ML 30 ML IV CONT ×2 (15:12→22:55)
[2022-02-02 15:15] LABS: D Dimer 3.34 ug/mL (<0.48)
[2022-02-02 15:23] LABS: Magnesium 2.4 mg/dL (1.6-2.3)
--- NOTE | 2022-02-02 16:15 | WPDCN ---
Assessment and Plan Assessment and plan (1) Mouth bleeding: Code(s): K13.79 - Other lesions of oral mucosa Status: Acute Assessment and Plan: Protamine sulfate FFP platelets given. Given the persistent using and other medical comorbidities I would personally recommend transfer to a high level of care. Please call with any and all questions. For any persistent oozing would recommend packing the oral cavity with tonsil sponges soaked in Afrin or fluff/gauze soaked in normal saline. If bleeding persists could consider intubation and packing overnight. Close monitoring of CBC coags. HPI Data of Consult Date/Time: 02/02/22 16:15 Requesting Physician: RHINA Segovia Primary Care Provider: Tao Aranda MD Consult Narrative Narrative: Jackson Boyer is a 81 year old male with a past medical history including multiple myeloma. ENT urgently consulted to PACU bedside for oral cavity bleeding. Patient received a heparin intraoperatively. Review of Systems Review of Systems: ROS unobtainable: Yes unobtainable due to medical condition PMFSH Past Medical History Medical History BPH (benign prostatic hyperplasia) CAD (coronary artery disease) CHF (congestive heart failure) His echo was performed on 01/08/2020. EF was 65-70%. CKD (chronic kidney disease), stage IV Multiple myeloma Non-ST elevation myocardial infarction (NSTEMI) Shingles Surgical History Surgical History History of arthroscopy of shoulder both shoulders Previous back surgery Stented coronary artery lad x1 Family History Family History Mother Diabetes mellitus Acute myocardial infarction Father Lung cancer Social History Social History Social History: the patient has 3 children. He lives with his . 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 The patient would like to be a full code. Patient is retired from [employer]. The patient is a lifelong nonsmoker. He does not use alcohol or marijuana or any illicit drugs. Smoking status: Never smoker Second hand tobacco smoke exposure: No Alcohol intake: never Substance use: never Substance use type: does not use Gender identity (if verbalized by the patient): Male Spiritual care concerns: No Agree to blood products: Yes Meds Home Medications and Allergies Home Medications Medication Instructions Recorded Confirmed Type tamsulosin 0.4 mg PO DAILY 01/07/20 01/31/22 History aspirin 81 mg PO QAM #30 tablet 01/13/20 01/31/22 Rx furosemide [Lasix] 80 mg PO DAILY 12/12/21 01/31/22 History acyclovir 200 mg PO BID 01/31/22 01/31/22 History calcitriol 0.25 mcg PO DAILY 01/31/22 01/31/22 History calcium carbonate [Tums 500] 500 mg PO TID 01/31/22 01/31/22 History fluconazole 200 mg PO DAILY 01/31/22 01/31/22 History nystatin 100,000 unit PO QID 01/31/22 01/31/22 History rosuvastatin [Crestor] 5 mg PO DAILY 01/31/22 01/31/22 History Allergies Allergy/AdvReac Type Severity Reaction Status Date / Time codeine AdvReac Confusion Verified 01/31/22 06:43 hydrocodone AdvReac Nausea and Verified 01/31/22 06:43 Vomiting Vital Signs Vital Signs - 24 hr 02/01/22 18:00 02/01/22 19:57 02/01/22 20:00 Temperature 36.8 C Pulse Rate 77 79 80 Respiratory Rate 18 Blood Pressure 130/46 L Pulse Oximetry 99 02/01/22 20:30 02/01/22 22:00 02/02/22 00:00 Temperature 36.8 C Pulse Rate 79 72 71 Respiratory Rate 18 Blood Pressure 130/43 L Pulse Oximetry 99 02/02/22 02:00 02/02/22 04:00 02/02/22 06:00 Temperature 36.6 C Pulse Rate 71 71 70 Respiratory Rate 18 Blood Pressure 102/80 Pulse Oximetry 100 02/02/22 08:00 02/02/22 08:03 02/02/22 08:31 Temperature 36.5 C
[2022-02-02] MEDS: ONDANSETRON INJ 4 MG/2 ML VIAL IV PUSH (16:16)
--- NOTE | 2022-02-02 16:51 | SUR.PHASEI ---
1240: Dr. Guardado called to come to PACU to assess bleeding from the mouth. Dr. Guardado and some OR staff at the bedside controlling the bleeding. 1250: Dr. Guerra called to come to the bedside and give some health history on the patient. RN searched through chart for answers as well. RN contacted the hospitalist caring for the patient to gather some history as well. Patient only takes an 81mg aspirin and has not received subQ heparin in the hospital at all per hospitalist, Tara Arechiga. Per OR front end developer javascript html css patient received 8000 units of heparin and 5000cc irrigation in new tunneled dialysis catheter during surgery. 1315: Stat PT/INR and PTT sent to lab. Also a type and screen were sent. 1346: Dr. Quinonez contacted by RN to speak with Dr. Guardado about future anticoagulation during dialysis treatment. Dr. Quinonez assured Dr. Guardado that further anticoagulation is not necessary during dialysis treatments. 1355: A new PTT was sent with patient label. 1405: RN checked type and screen results and patient is A positive. 1455: More labs sent. A reversal for heparin (Protamine Sulfate) given IV push to patient in PACU. Dr. Estrada came to recovery to see patient and accepted him in our ([place]) ICU while we wait for a bed over in [facility]. Patient received 2 units of platelets and 1 unit of FFP in recovery. We are waiting for a bed at [facility] at this time. He has been accepted there.
[2022-02-02 18:56] LABS: Eosinophils Percent Auto 0.1 % (0-4.4); Hematocrit 21.7 % (42.0-52.0); Hemoglobin 7.1 g/dL (14.0-18.0); Immature Granulocyte Absolute 0.09 K/mm3 (0.00-0.031); Immature Granulocyte Percent A 1.2 % (0-0.5); Lymphocytes Absolute Auto 0.27 K/mm3 (0.9-3.2); Lymphocytes Percent Auto 3.7 % (18.3-44.2); Mean Corpuscular HGB Conc 32.7 g/dl (32-36); Mean Corpuscular Hemoglobin 30.3 pg (26-34); Mean Corpuscular Volume 92.7 fl (80-100); Mean Platelet Volume 9.2 fl (7.4-10.4); Monocytes Absolute Auto 0.2 K/mm3 (0.1-0.6); Monocytes Percent Auto 2.9 % (2.6-8.5); Neutrophils Absolute Auto 6.7 K/mm3 (1.3-6.7); Neutrophils Percent Auto 92.1 % (45.5-73.1); Platelet Count Result 219 k/mm3 (150-375); Red Blood Count 2.34 M/mm3 (4.6-6.20); Red Cell Distribution Width 17.7 % (11.5-14.5); White Blood Count 7.3 K/mm3 (4.5-10.0)
[2022-02-02 19:07] LABS: INR 1.3; Partial Thromboplastin Time 31.7 SECONDS (22.3-36.8); Prothrombin Time 15.5 Seconds (11.1-14.7)
[2022-02-02 19:08] LABS: Anion Gap 20 mmol/L (8-16); Calcium 8.5 mg/dL (8.4-10.2); Carbon Dioxide 20 mmol/L (22-30); Chloride 90 mmol/L (98-107); Estimated CRCL calculation 5 ml/min; Estimated Glomerular Filt Rate 5; Glucose 132 mg/dL (65-110); Potassium 4.3 mmol/L (3.4-5.0); Sodium 130 mmol/L (137-145)
[2022-02-02 19:46] LABS: Blood Urea Nitrogen 122 mg/dL (9-20)
[2022-02-02 21:02] LABS: Alanine Aminotransferase 18 U/L (4-50); Albumin Level 3.5 g/dL (3.5-5.1); Alkaline Phosphatase 74 U/L (38-126); Anion Gap 20 mmol/L (8-16); Aspartate Amino Transferase 38 U/L (17-59); Bilirubin,Total 0.3 mg/dL (0.2-1.3); Blood Urea Nitrogen 120 mg/dL (9-20); Calcium 8.6 mg/dL (8.4-10.2); Carbon Dioxide 20 mmol/L (22-30); Chloride 90 mmol/L (98-107); Estimated CRCL calculation 5 ml/min; Estimated Glomerular Filt Rate 5; Glucose 134 mg/dL (65-110); Potassium 4.3 mmol/L (3.4-5.0); Sodium 130 mmol/L (137-145)
[2022-02-02 22:18] LABS: EDCOVIDSCREEN Negative (Negative)
[2022-02-03] VITALS: PULSE 79
[2022-02-03 00:10] VITALS: BP 124/75; PULSE 76; RESP 15; TEMP 36.2; O2SAT 100
[2022-02-03 01:10] VITALS: BP 123/76; PULSE 70; RESP 17; TEMP 36.3; O2SAT 100
[2022-02-03 01:45] VITALS: BP 131/81; PULSE 75; RESP 16; TEMP 36.3; O2SAT 100
[2022-02-03 02:00] VITALS: PULSE 68
[2022-02-03 04:00] VITALS: BP 128/87; PULSE 75; PULSE 86; RESP 15; TEMP 36.3; O2SAT 99
--- NOTE | 2022-02-03 06:41 | PM.TDS ---
Transfer Discharge Sum: Prov Provider Date of admission: 01/31/22 06:15 Primary care physician: Tao Aranda MD Admitting clinician: Shady Ramos DO Attending physician on admission: Tara Arechiga Consults: 01/31/22 Consult to Physician Routine Comment: Consulting Provider: Fredrick Cruz square dance caller/MD group to consult: cardiology Reason for consultation: preop clearance/chest pain Has provider been notified: Yes Consult to Physician Routine Comment: Consulting Provider: Merry Moeller Reason for consultation: Acute on chronic kidney disease Has provider been notified: Yes Consult to Physician Routine Comment: spoke to Lia in the office @0830(ER,US) Consulting Provider: Jose Daniel Guerra square dance caller/MD group to consult: surgery Reason for consultation: dialysis cathteter Has provider been notified: Yes 02/02/22 Consult to Physician Routine Comment: Consulting Provider: Carmine Estrada square dance caller/MD group to consult: ICU marketing finance manager Reason for consultation: icu admission Has provider been notified: Yes Attending physician on discharge: Tara Arechiga Discharging clinician: Tara Arechiga Anticipated date of transfer: 02/03/22 Receiving physician/facility: [facility] ICU DS: Admitting Diagnosis Discharge Date 02/03/22 Admitting Diagnosis Generalized Weakness Multiple Myeloma ESRD DS: Discharge Diagnosis Discharge Diagnosis (1) Weakness: Code(s): R53.1 - Weakness Status: Acute Assessment and Plan: -Likely multifactorial due to multiple myeloma, dehydration, anemia, worsening kidney function. His renal function is at an all time low at <7. - Continuing Levaquin for possible PNA. - Prior to definitive discharge date, the pt. will need PT consult for assessment. (2) Anemia: Qualifiers: Anemia type: unspecified type Qualified Code(s): D64.9 - Anemia, unspecified Code(s): D64.9 - Anemia, unspecified Status: Acute Assessment and Plan: - Chronic, likely due to renal disease and MM. - Continue to monitor his CBC - Hgb is 8.0 today. - He will receive Erythropoeitin in Dialysis. (3) Acute on chronic renal failure: Qualifiers: Acute renal failure type: unspecified Chronic kidney disease stage: stage 5, not on chronic dialysis Qualified Code(s): N17.9 - Acute kidney failure, unspecified; N18.5 - Chronic kidney disease, stage 5 Code(s): N17.9 - Acute kidney failure, unspecified; N18.9 - Chronic kidney disease, unspecified Status: Acute Assessment and Plan: -BUN/creat elevated at 125/10.20. GFR is 5. -felt to be multifactorial due to HTN and longstanding dx of multiple myeloma - Permacath to be placed today by surgery and patient will start dialysis shortly thereafter. (4) Elevated troponin: Code(s): R79.89 - Other specified abnormal findings of blood chemistry Status: Acute Assessment and Plan: - Ruled out concern for ACS with Cardiology. - Elevation is likely due to ischemic demand as he is ESRD. (5) Pleural effusion on left: Code(s): J90 - Pleural effusion, not elsewhere classified Status: Acute Assessment and Plan: - Continue to dose Levaquin for a complete round of abx therapy. -He does not appear to be in any type of CHF exacerbation, no LE edema, echo reviewed -COVID negative (6) Electrolyte abnormality: Code(s): E87.8 - Other disorders of electrolyte and fluid balance, not elsewhere classified Status: Acute Assessment and Plan: - Hyponatremia resolved/ - High risk for continued electrolyte derangement as pt. will be starting HD. - Nephrology covering. - Will continue to monitor with BMP's. (7) Multiple myeloma: Qualifiers: Multiple myeloma remission status: not in remission Qualified Code(s): C90.00 - Multiple myeloma not having achieved remission Code(s): C90.
--- NOTE | 2022-02-03 09:48 | WPDANESPN ---
Anes - Prog Note Post-Op Date/Time: 02/03/22 09:48 Cardiovascular status: other Respiratory status: normal Airway patency: baseline Mental status: baseline Post-Op hydration status: normal Vital Signs: Last Vital Signs Temp 97.4 F L 02/03/22 04:00 Pulse 86 02/03/22 04:00 Resp 15 02/03/22 04:00 BP 128/87 02/03/22 04:00 Pulse Ox 99 02/03/22 04:00 Pain Score (VAS): 210 I/O: Intake & Output 02/02/22 02/03/22 02/03/22 23:59 07:59 15:59 Intake Total 813 300 Output Total 330 500 Balance 483 -200 Laboratory Tests 02/02/22 18:44 02/02/22 18:44 01/31/22 02/02/22 02/02/22 05:22 13:16 14:46 WBC 8.1 RBC 2.52 L Hgb 7.8 L Hct 24.0 L MCV 95.2 MCH 31.0 MCHC 32.5 RDW 17.7 H Plt Count 149 L MPV 9.6 Immature Gran % (Auto) Neut % (Auto) Lymph % (Auto) [place] % (Auto) Eos % (Auto) Baso % (Auto) Lymph # (Auto) [place] # (Auto) Eos # (Auto) Baso # (Auto) Abs Immat Gran (auto) Absolute Neuts (auto) Absolute Nucleated RBC Nucleated RBC % PT 17.3 H INR 1.5 APTT 133.2 H Fibrinogen D-Dimer Sodium Potassium Chloride Carbon Dioxide Anion Gap BUN Creatinine Estim Creat Clear Calc Estimated GFR Glucose Calcium Magnesium Total Bilirubin AST ALT Alkaline Phosphatase Total Protein Albumin SARS-CoV-2 RNA (RT-PCR) SARS-CoV-2 IgG/IgM Ag?Rapid Blood Type A Positive Antibody Screen Positive Antibody Identification TNP Antigen Identification Cancelled URSULA, Poly Interpret Negative Crossmatch See Detail 02/02/22 02/02/22 02/02/22 14:46 14:56 18:42 WBC RBC Hgb Hct MCV MCH MCHC RDW Plt Count MPV Immature Gran % (Auto) Neut % (Auto) Lymph % (Auto) [place] % (Auto) Eos % (Auto) Baso % (Auto) Lymph # (Auto) [place] # (Auto) Eos # (Auto) Baso # (Auto) Abs Immat Gran (auto) Absolute Neuts (auto) Absolute Nucleated RBC Nucleated RBC % PT 16.6 H INR 1.4 APTT 68.4 H Fibrinogen 396 D-Dimer 3.34 H Sodium 130 L Potassium 4.3 Chloride 90 L Carbon Dioxide 20 L Anion Gap 20 H BUN 120 H Creatinine 10.20 H Estim Creat Clear Calc 5 Estimated GFR 5 L Glucose 134 H Calcium 8.6 Magnesium 2.4 H Total Bilirubin 0.3 AST 38 ALT 18 Alkaline Phosphatase 74 Total Protein 6.0 L Albumin 3.5 SARS-CoV-2 RNA (RT-PCR) SARS-CoV-2 IgG/IgM Ag?Rapid Blood Type Antibody Screen Antibody Identification Antigen Identification URSULA, Poly Interpret Crossmatch 02/02/22 02/02/22 02/02/22 18:44 18:44 18:44 WBC 7.3 RBC 2.34 L Hgb 7.1 L Hct 21.7 L MCV 92.7 MCH 30.3 MCHC 32.7 RDW 17.7 H Plt Count 219 MPV 9.2 Immature Gran % (Auto) 1.2 H Neut % (Auto) 92.1 H Lymph % (Auto) 3.7 L [place] % (Auto) 2.9 Eos % (Auto) 0.1 Baso % (Auto) 0.0 L Lymph # (Auto) 0.27 L [place] # (Auto) 0.2 Eos # (Auto) 0.0 Baso # (Auto) 0.0 Abs Immat Gran (auto) 0.09 H Absolute Neuts (auto) 6.7 Absolute Nucleated RBC 0.0 Nucleated RBC % 0.0 PT INR APTT 31.7 Fibrinogen D-Dimer Sodium 130 L Potassium 4.3 Chloride 90 L Carbon Dioxide 20 L Anion Gap 20 H BUN 122 H Creatinine 10.10 H Estim Creat Clear Calc 5 Estimated GFR 5 L Glucose 132 H Calcium 8.5 Magnesium Total Bilirubin AST ALT Alkaline Phosphatase Total Protein Albumin SARS-CoV-2 RNA (RT-PCR) SARS-CoV-2 IgG/IgM Ag?Rapid Blood Type Antibody Screen Antibody Identification Antigen Identification URSULA, Poly Interpret Crossmatch 02/02/22 02/02/22 02/02/22 18:44 21:57 21:57 WBC RBC Hgb Hct MCV MCH MCHC RDW Plt Count MPV Immature Gran
[2022-02-04 11:51] LABS: Hepatitis B Core Ab Total Nonreactive (Nonreactive)
== END 2022-02-03 05:05 | disposition short-term general hospital (02) | DRG 673 ==
LOC: ANHED 06:30 → ANHIMU 06:37 → ANHICU 02-02 17:19
PROVIDERS: Anesthesiology; Internal Medicine Nephrology; Physician Assistant; Surgery; Admitting Provider Internal Medicine; Emergency Provider Emergency Medicine; PCP Family Medicine; Visit Provider Nurse Practitioner Adult Health
PROC: 0JH63XZ Insertion of Tunneled Vascular Access Device into Chest Subcutaneous Tissue and Fascia, Percutaneous Approach (ICD-10-PCS; CPT 36908; principal; 2022-02-02 11:30)
DX: N17.9 Acute kidney failure, unspecified (principal); J18.9 Pneumonia, unspecified organism; J90 Pleural effusion, not elsewhere classified; C90.00 Multiple myeloma not having achieved remission; I50.32 Chronic diastolic (congestive) heart failure; E87.1 Hypo-osmolality and hyponatremia; D68.32 Hemorrhagic disorder due to extrinsic circulating anticoagulants; I24.8 Other forms of acute ischemic heart disease; N18.5 Chronic kidney disease, stage 5; R53.1 Weakness; Z20.822 Contact with and (suspected) exposure to COVID-19; R79.89 Other specified abnormal findings of blood chemistry; E87.8 Other disorders of electrolyte and fluid balance, not elsewhere classified; Z79.82 Long term (current) use of aspirin; Z79.899 Other long term (current) drug therapy; Z83.3 Family history of diabetes mellitus; Z82.49 Family history of ischemic heart disease and other diseases of the circulatory system; Z80.1 Family history of malignant neoplasm of trachea, bronchus and lung; I25.10 Atherosclerotic heart disease of native coronary artery without angina pectoris; I25.2 Old myocardial infarction; N40.0 Benign prostatic hyperplasia without lower urinary tract symptoms; Z95.5 Presence of coronary angioplasty implant and graft; R06.02 Shortness of breath; K13.79 Other lesions of oral mucosa; T45.515A Adverse effect of anticoagulants, initial encounter; E86.0 Dehydration; D63.1 Anemia in chronic kidney disease
CPT/HCPCS: 36415; 36430; 71045; 77001; 80048; 80053; 81001; 83735; 84100; 84145; 84484; 85025; 85027; 85380; 85384; 85610; 85730; 86704; 86706; 86803; 86850; 86870; 86880; 86900; 86901; 86902; 86920; 86970; 87040; 87340; 87426; 93005; 93306; 96360; 97161; 97165; 99285; A9270; C1750; C9803; J0690; J0696; J1100; J1644; J1956; J2405; J2704; J2720; J3010; J7030; J7040; J7050; P9016; P9017; P9034; U0003; U0005